=== PATIENT | male | born 1945 | race Caucasian/White ===

== ENCOUNTER 2019-09-29 08:51 | Outpatient (CLI) | payer MEDICARE, SELFPAY ==
[2019-09-29 09:20] LABS: Hemoglobin A1C 7.7 % (<5.7)
[2019-09-29 10:05] LABS: Alanine Aminotransferase 22 U/L (16-63); Albumin Level 3.5 g/dL (3.4-5.0); Alkaline Phosphatase 65 U/L (46-116); Anion Gap 10.6 mmol/L (7-16); Aspartate Amino Transferase 12 U/L (15-37); Bilirubin,Total 0.5 mg/dL (0.00-1.00); Blood Urea Nitrogen 23 mg/dL (7-18); Calcium 8.7 mg/dL (8.5-10.1); Carbon Dioxide 33 mmol/L (21-32); Chloride 102 mmol/L (98-108); Cholesterol 212 mg/dL (0-200); Estimated Glomerular Filt Rate 32; Glucose 193 mg/dL (70-99); HDL Direct 49 mg/dL (40-60); LDL Cholesterol Calculated 123 mg/dL (<130); Osmolality Calculated 300 mOsm/kg (285-295); Potassium 4.6 mmol/L (3.5-5.1); Prostate Specific Antigen 2.2 ng/mL (< OR = 4.0); Sodium 141 mmol/L (136-145); Total Protein 6.3 g/dL (6.4-8.2); Triglycerides 199 mg/dL (0-150)
== END 2019-09-29 08:52 | disposition home or self-care (01) ==
PROVIDERS: PCP Nurse Practitioner Family; Visit Provider Nurse Practitioner Family
DX: E11.9 Type 2 diabetes mellitus without complications (principal); R97.20 Elevated prostate specific antigen [PSA]
CPT/HCPCS: 36415; 80053; 80061; 83036; 84153

== ENCOUNTER 2019-10-15 20:38 | Emergency (ER) | payer MEDICARE, SELFPAY ==
--- NOTE | ~2019-10-15 | CT_ITS ---
EXAMINATION: CT cervical spine wo con DATE: 10/15/2019 21:37 INDICATION: Fall. TECHNIQUE: Computed tomography (CT) of the cervical spine was performed without intravenous contrast. Automated exposure control and iterative reconstruction technique were employed. The dose-length pro duct was 504.90 mGy-cm. COMPARISON: None FINDINGS: Bone alignment is normal. Vertebral body heights are normal. There is mildly decreased disc height at C3-C4 and C4-C5 and severely decreased disc height at C5-C6 and C6-C7. The following disc levels are specifically discussed: C2-C3: There is no uncovertebral joint osteoarthritis. There is mild right and moderate left facet eden int osteoarthritis. There is no neural foraminal stenosis. There is no central canal stenosis. C3-C4: There is mild right and severe left uncovertebral joint osteoarthritis. There is moderate righ t and severe left facet joint osteoarthritis. There is mild right and moderate left neural foraminal stenosis. There is mild central canal stenosis. C4-C5: There is severe right and mild left uncovertebral joint osteoarthritis. There is moderate righ t and severe left facet joint osteoarthritis. There is moderate right and mild left neural foraminal stenosis. There is mild central canal stenosis. C5-C6: There is severe bilateral uncovertebral joint osteoarthritis. There is mild bilateral facet eden int osteoarthritis. There is moderate bilateral neural foraminal stenosis. There is mild central swathi l stenosis. C6-C7: There is severe bilateral uncovertebral joint osteoarthritis. There is no facet joint osteoart hritis. There is mild bilateral neural foraminal stenosis. There is mild central canal stenosis. C7-T1: There is no uncovertebral joint osteoarthritis. There is severe bilateral facet joint osteoart hritis. There is mild right neural foraminal stenosis. There is no central canal stenosis. IMPRESSION: 1. No fracture. 2. Severe cervical spondylosis. Reviewed, dictated and finalized at location A.
--- NOTE | ~2019-10-15 | CT_ITS ---
EXAMINATION: CT brain wo con DATE: 10/15/2019 21:36 INDICATION: Fall. TECHNIQUE: Computed tomography (CT) of the head was performed without intravenous contrast. The mA wa s adjusted according to patient size. Iterative reconstruction technique was employed. The dose-lengt h product was 681.00 mGy-cm. COMPARISON: Head CT 07/28/2016 FINDINGS: There is no intracranial hemorrhage, acute infarction, or abnormal intracranial mass lesion . The ventricles are normal in size. There is mild mucosal thickening in the paranasal sinuses. The m astoid air cells are normal. There are likely changes of ocular lens replacement surgeries. IMPRESSION: 1. Normal brain. Reviewed, dictated and finalized at location A. IMPRESSION: 1. Normal brain.
--- NOTE | ~2019-10-15 | XR_ITS ---
EXAMINATION: XR hip BI 2V w AP pelvis DATE: 10/15/2019 21:38 INDICATION: Right hip pain. TECHNIQUE: An anteroposterior view of the pelvis and 2 views of each hip were obtained. COMPARISON: Right hip radiographs 10/18/2018 FINDINGS: There is a subcapital fracture of right femoral neck. The distal fracture fragment demonstr ates impaction and varus angulation. There is severe right hip osteoarthritis and mild left hip osteo arthritis. IMPRESSION: 1. Subcapital fracture of right femoral neck. 2. Severe right hip osteoarthritis and mild left hip osteoarthritis. Reviewed, dictated and finalized at location A.
[2019-10-15 20:38] VITALS: BP 123/85; PULSE 86; RESP 18; TEMP 36.4; O2SAT 98
[2019-10-15] MEDS: MORPHINE SULFATE 2 MG/ML INJ IV PUSH (22:50)
[2019-10-15] MEDS: ONDANSETRON INJ 4 MG/2 ML VIAL IV PUSH (22:52)
--- NOTE | 2019-10-15 22:58 | ED.FALL ---
HPI - Fall General Chief Complaint: Fall Stated Complaint: 74YO male w/ known h.o gait imbalance was walking up an incline when he lost his balance and fell. Pt is brought into my ED in trauma package with externally rotated right LE. Denies LOC. Related Data Home Medications Medication Instructions Recorded Confirmed furosemide 40 mg tablet 40 mg PO QAM 08/31/19 ranolazine 500 mg tablet,extended 500 mg PO Q12H 08/31/19 release,12 hr Allergies Allergy/AdvReac Type Severity Reaction Status Date / Time No Known Allergies Allergy Verified 10/15/19 22:24 Review of Systems Review of Systems: All systems reviewed & are unremarkable except as noted in HPI and below Constitutional: Constitutional: Reports no additional constitutional complaints Eyes: Eyes: Reports no additional eye complaints Cardiovascular: Cardiovascular: Reports no additional cardiovascular complaints Respiratory: Respiratory: Reports no additional respiratory complaints Gastrointestinal: Gastrointestinal: Reports no additional gastrointestinal complaints Musculoskeletal: Musculoskeletal: Reports as per HPI Integumentary/Breasts: Skin/Breast: Reports system reviewed and no additional complaints, except as docu Neurologic: Reports system reviewed and no additional complaints, except as documented Psychiatric: Psychiatric: Reports no additional psychiatric complaints [facility] Past Medical History Medical History Benign prostate hyperplasia COPD (chronic obstructive pulmonary disease) Depression PAUL (generalized anxiety disorder) HTN (hypertension) Meniere disease Primary generalized (osteo)arthritis Type 2 diabetes mellitus Family History Family History Mother Family history of coronary artery disease Social History Social History Smoking status: Never smoker Exam Const: General: healthy appearing, no acute distress and alert Orientation/consciousness: patient oriented x3 Other: IN Trauma package w/ c-collar in place HENMT: Head: normal to inspection Eyes: Pupils: Equal, round and reactive pupils present Neck: Neck: normal visual inspection Chest: Chest palpation & inspection: normal inspection of the chest Resp: Effort & Inspection: normal respiratory effort Auscultation: clear to auscultation bilaterally Cardio: Rate: regular rate Rhythm: regular rhythm GI: Auscultation: normal bowel sounds Skin: General skin exam: normal color Neuro: General: patient oriented x3 and CN's II-XI intact bilaterally Other: RLE Externally rotated, painful to move Extrem: Other: See above Psych: Mental Status: mental status grossly normal Course Course Emergency Course: Reviewed w/u with R Hip Fx. Will need to transfer to [place] Transfer Transfered to: [place] Transfer rationale: Ortho Accepting physician: Fox (ortho)Parminder(Hospitalist) MDM - Fall Medical Records Attestation: I reviewed the patient's medical records. Critical Care Time Critical Care Time Critical Care Time: No Discharge Plan Discharge Clinical Impression: Closed fracture of right hip requiring operative repair Patient Disposition: Acute Care Hospital Condition: Stable Prescriptions: No Action ranolazine [Ranexa] 500 mg tablet extended release 12 hr 500 mg PO Q12H RF: 0 furosemide 40 mg tablet 40 mg PO QAM RF: 0 bupropion HCl 150 mg tablet extended release 24 hr 150 mg PO QAM Qty: 90 RF: 2 nitroglycerin 0.4 mg tablet, sublingual 0.4 mg SUBLINGUAL Q5M PRN (Reason: chest pain) Qty: 90 RF: 0 budesonide-formoterol [Symbicort] 160-4.5 mcg/actuation HFA aerosol inhaler See Rx Instructions .ROUTE .COMPLEX Qty: 30.6 RF: 2 atorvastatin 20 mg tablet 20 mg PO DAILY Qty: 30 RF: 1 metformin 500 mg tablet 500 mg PO BID Qty: 180 RF:
--- NOTE | 2019-10-15 23:34 | PC.NURSE ---
ON 10-15-19 AT 2335 REPORT WAS CALLED TO [facility] TO THE 3RD FLOOR ROOM 302. KRISTI PATTON GAVE REPORT TO TRINIDAD BERRY AND PT. STABLE AT THIS TIME. IV IN PLACE AND ONLY COMPLAINT IS PAIN. ALL HOME MEDS GIVEN BACK TO AND REPORT GIVEN TO ELVI BERRY TO TAKE OVER CARE OF THIS ASSIGNMENT OF NOW.,
[2019-10-15 23:35] VITALS: BP 121/72; PULSE 72; RESP 20; TEMP 36.6; O2SAT 92
--- NOTE | 2019-10-16 00:27 | PC.NURSE ---
Report given to EMILY and pt. transfered to [facility]
== END 2019-10-16 00:28 | disposition short-term general hospital (02) ==
PROVIDERS: Emergency Provider Family Medicine; PCP Nurse Practitioner Family
DX: S72.011A Unspecified intracapsular fracture of right femur, initial encounter for closed fracture (principal); J44.9 Chronic obstructive pulmonary disease, unspecified; I10 Essential (primary) hypertension; E11.9 Type 2 diabetes mellitus without complications; W19.XXXA Unspecified fall, initial encounter
CPT/HCPCS: 70450; 72125; 73521; 96374; 96375; 99283; 99285; J2270; J2405

== ENCOUNTER 2019-10-16 02:45 | Inpatient (IN) | payer MEDICARE, OTHER, SELFPAY ==
[2019-10-16] VITALS (8 sets, daily range): BP systolic 122–151; BP diastolic 61–84; PULSE 85–105; RESP 16–22; TEMP 36.1–36.7; O2SAT 90–92; BMI 25.2
--- NOTE | ~2019-10-16 | XR_ITS ---
EXAMINATION: XR hip RT min 2V DATE: 10/17/2019 10:30 INDICATION: Right hip arthroplasty. Postop. TECHNIQUE: 2 views of right hip were obtained. COMPARISON: Right hip radiographs 10/15/2019 FINDINGS: There is a bipolar right hip hemiarthroplasty in near-anatomic alignment. No fracture. Ther e is gas in the soft tissues, consistent with recent surgery. IMPRESSION: 1. Bipolar right hip hemiarthroplasty in near-anatomic alignment. Reviewed, dictated and finalized at location A.
--- NOTE | ~2019-10-16 | CT_ITS ---
EXAMINATION: CT brain wo con INDICATION: Altered mental status COMPARISON: 10/15/2019 TECHNIQUE: Standard unenhanced head CT. The dose-length product (DLP) was 605.33 mGy-cm. The mA was a djusted according to patient size. Iterative reconstruction technique was employed. FINDINGS: There is no acute intraparenchymal hemorrhage. No evidence of mass lesion. No evidence of a cute infarction. There is mild periventricular and subcortical hypodensity probably related to small vessel ischemic disease. There is mild prominence of the sulci and ventricles related to cerebral atr ophy. Intracranial calcified cerebral atherosclerosis is noted. There are no extra-axial collections. There is no mass effect or midline shift. Changes in the globes are likely from ocular lens surgery. The visualized sinuses and mastoid air cells are well aerated. IMPRESSION: 1. No acute intracranial abnormality. 2. Age related findings. Reviewed, dictated and finalized at location A.
--- NOTE | ~2019-10-16 | XR_ITS ---
EXAMINATION: XR chest 1V portable INDICATION: Hypertension and diabetes TECHNIQUE: Portable AP chest at 0956 hours COMPARISON: 07/28/2016 FINDINGS: Bilateral linear opacities are noted. There is no pleural effusion or pneumothorax. The hea rt size is normal. There is a large hiatal hernia. The visualized osseous structures are unremarkable . IMPRESSION: 1. Large hiatal hernia. 2. Likely bilateral subsegmental atelectasis. Reviewed, dictated and finalized at location A.
--- NOTE | 2019-10-16 01:39 | ADMGEN ---
This patient, Davis Hunter , was admitted to [address] [facility] Surg Room 302-01. Patient/family oriented to hospital policies and general routines including ID bracelet, bed and alarms, visiting hours, pain management, procedures, bathroom and other care routines, personal items, smoking policy, room service/diet, and visiting hours. Valuables list has been completed. Information on how to activate the Rapid Response Team has been discussed. Patient/Family are encouraged to report perceived risks to care and to ask questions if they do not understand what they are told or what they should do.
[2019-10-16] MEDS: SODIUM CHLORIDE 0.9% IV 1,000 ML 100 ML IV CONT (02:54)
[2019-10-16] MEDS: ONDANSETRON INJ 4 MG/2 ML VIAL IV PUSH (02:55)
--- NOTE | 2019-10-16 03:08 | PM.IMHP ---
H&P: HPI History of Present Illness Chief complaint: Right Hip Fracture Narrative: This is a pleasant 74 year old Diabetic male who presented to our hospital as a direct admission after being found to have a right hip fracture yesterday. The patient apparently lost his balance when he was walking up an incline yesterday and fell on his right side. He denied any head trauma or loss of conciousness. He immediately suffered ambulatory dysfunction and could not get up. On arrival to [place] [facility] the patient was evaluated and found to have a subcapital fracture of right femoral neck. ER provider consulted Ortho, Dr. Braxton who has asked that we admit the patient and he will see him in the morning. On my encounter with the patient tonight he is only complaining of right hip pain. He denies any fever, chills, chest pain, shortness of breath, sore throat, headache, abdominal pain, dysuria, hematuria, nausea, vomiting, diarrhea, or rectal bleeding. No other complaints. Review of Systems Review of Systems: All systems reviewed & are unremarkable except as noted in HPI and below PMFSH Past Medical History Medical History (Updated 10/16/19 @ 03:18 by Davis Zurita MD) Benign prostate hyperplasia COPD (chronic obstructive pulmonary disease) Depression PAUL (generalized anxiety disorder) HTN (hypertension) Meniere disease Primary generalized (osteo)arthritis Type 2 diabetes mellitus Surgical History Surgical History (Updated 10/16/19 @ 03:13 by Davis Zurita MD) History of coronary artery stent placement Family History Family History Mother Family history of coronary artery disease Social History Social History Smoking status: Current some day smoker Tobacco type: cigars Additional smoking assessment comments: Pt reports smoking a cigar approximately once a week. Alcohol intake: current Drinks per week: 1 Substance use: never Gender identity (if verbalized by the patient): Male Spiritual care concerns: No Meds Home Medications and Allergies Home Medications Medication Instructions Recorded Confirmed Type bupropion HCl 150 mg 24 hr tablet, 150 mg PO QAM #90 tablet 05/09/19 10/16/19 Rx extended release nitroglycerin 0.4 mg sublingual 0.4 mg SUBLINGUAL Q5M PRN #90 06/21/19 10/16/19 Rx tablet tablet furosemide 40 mg tablet 40 mg PO QAM 08/31/19 10/16/19 History ranolazine 500 mg tablet,extended 500 mg PO Q12H 08/31/19 10/16/19 History release,12 hr atorvastatin 20 mg tablet 20 mg PO DAILY #30 tablet 10/03/19 10/16/19 Rx metformin 500 mg tablet 500 mg PO BID #180 tablet 10/04/19 10/16/19 Rx metoprolol tartrate 50 mg tablet 50 mg PO DAILY #90 tablet 10/06/19 10/16/19 Rx budesonide-formoterol [Symbicort] 2 puff INHALATION Q12H 10/16/19 10/16/19 History citalopram 40 mg PO DAILY 10/16/19 10/16/19 History meclizine 25 mg PO BID PRN 10/16/19 10/16/19 History Allergies Allergy/AdvReac Type Severity Reaction Status Date / Time No Known Allergies Allergy Verified 10/15/19 22:24 Vital Signs Vital Signs - 24 hr 10/16/19 01:20 Temperature 36.3 C L Pulse Rate 95 Respiratory Rate 22 H Blood Pressure 138/84 Pulse Oximetry 90 Exam Const: General: cooperative, alert, awake and in distress (right hip pain++ ) moderate Nutritional Appearance: well nourished Orientation/consciousness: patient oriented x3 HENMT: Head: normal to inspection General nose exam: Normal external nose present Face and sinus: normal facial exam Mouth: Yes Normal oral and palatal mucosa present and Yes oropharynx normal Eyes: Pupils: Equal, round and reactive pupils present EOM: EOMs intact bilaterally Neck: Neck: supple and no JVD Thyroid: thyroid normal Lymphatic: lymphadenopathy not noted Resp: Effort & Inspection: normal respiratory effort Auscultation: clear to auscultation bilaterally Cardio:
[2019-10-16 03:41] LABS: Basophils Percent Auto 0.3 % (0.2-1.2); Eosinophils Percent Auto 0.1 % (0-4.4); Hematocrit 41.5 % (42.0-52.0); Immature Granulocyte Absolute 0.08 K/mm3 (0.00-0.031); Immature Granulocyte Percent A 0.7 % (0-0.5); Lymphocytes Absolute Auto 0.59 K/mm3 (0.9-3.2); Mean Corpuscular HGB Conc 33.7 g/dl (32-36); Mean Platelet Volume 8.7 fl (7.4-10.4); Neutrophils Absolute Auto 10.2 K/mm3 (1.3-6.7); Neutrophils Percent Auto 85.9 % (45.5-73.1); Platelet Count Result 145 k/mm3 (150-375); Red Blood Count 4.51 M/mm3 (4.6-6.20); Red Cell Distribution Width 13.6 % (11.5-14.5); White Blood Count 11.9 K/mm3 (4.5-10.0)
[2019-10-16 03:54] LABS: Blood Urea Nitrogen 33 mg/dL (9-20); Calcium 8.5 mg/dL (8.4-10.2); Carbon Dioxide 25 mmol/L (22-30); Chloride 104 mmol/L (98-107); Estimated CRCL calculation 35 ml/min; Estimated Glomerular Filt Rate 42; Glucose 214 mg/dL (75-110); Potassium 4.9 mmol/L (3.4-5.0); Sodium 135 mmol/L (137-145)
[2019-10-16 05:43] LABS: Glucose Point of Care 194 (65-105)
--- NOTE | 2019-10-16 09:35 | ECG_ITS ---
Measurements Intervals [place] Rate: 98 P: 54 HI: 164 QRS: 6 QRSD: 91 T: 46 QT: 358 QTc: 459 Interpretive Statements SINUS RHYTHM NORMAL ECG Electronically Signed On 10-16-2019 12:59:14 CDT by Brent Jaffe D.O.
--- NOTE | 2019-10-16 09:58 | PM.CNOR ---
Assessment and Plan Assessment and plan (1) Subcapital fracture of right femur: Qualifiers: Encounter type: initial encounter Fracture type: closed Qualified Code(s): S72.011A - Unspecified intracapsular fracture of right femur, initial encounter for closed fracture Code(s): S72.011A - Unspecified intracapsular fracture of right femur, initial encounter for closed fracture Status: Acute Assessment and Plan: 74-year-old male with an acute right subcapital femoral neck fracture. He does have an arthritic hip. Ideally a total hip replacement would be the procedure of choice however with his diabetes having less than stellar control (elevated hemoglobin A1c), and his poor kidney function, my concerns for wound healing issues in possibility of infection increase and so will instead do a bipolar replacement.Risks and potential complications were discussed in detail and questions answered. Thank you for the consultation. Pending medical clearance we will proceed tomorrow. History of Present Illness HPI Consult date: 10/16/19 Consult reason: fracture (Right subcapital femoral neck fracture) Chief complaint: Right Hip Fracture Narrative: 74-year-old male who fell yesterday. He was initially evaluated at the [place] [facility] hospital and then transferred to [facility] for further evaluation and management of a right hip fracture. No other injuries with this occurrence. Patient articulates pain in his right hip and no where else. Review of Systems Constitutional: Constitutional: Reports no additional constitutional complaints, Denies excessive sweating and Denies fatigue Eyes: Eyes: Reports no additional eye complaints ENT: Reports system reviewed and no additional complaints, except as documented Cardiovascular: Cardiovascular: Denies chest pain at rest and Denies dyspnea Respiratory: Respiratory: Reports no additional respiratory complaints and Denies dyspnea Gastrointestinal: Gastrointestinal: Reports no additional gastrointestinal complaints Musculoskeletal: Musculoskeletal: Reports as per HPI Integumentary/Breasts: Skin/Breast: Reports system reviewed and no additional complaints, except as docu Neurologic: Reports as per HPI Endocrine: Endocrine: Denies excessive sweating and Denies fatigue Hematologic/Lymphatic: Hematologic/Lymphatic: Denies easy bleeding and Denies easy bruising PMFSH Past Medical History Medical History Benign prostate hyperplasia COPD (chronic obstructive pulmonary disease) Depression PAUL (generalized anxiety disorder) HTN (hypertension) Meniere disease Primary generalized (osteo)arthritis Type 2 diabetes mellitus Surgical History Surgical History History of coronary artery stent placement Family History Family History Mother Family history of coronary artery disease Social History Social History Smoking status: Current some day smoker Tobacco type: cigars Additional smoking assessment comments: Pt reports smoking a cigar approximately once a week. Alcohol intake: current Drinks per week: 1 Substance use: never Gender identity (if verbalized by the patient): Male Spiritual care concerns: No Meds Home Medications and Allergies Home Medications Medication Instructions Recorded Confirmed Type bupropion HCl 150 mg 24 hr tablet, 150 mg PO QAM #90 tablet 05/09/19 10/16/19 Rx extended release nitroglycerin 0.4 mg sublingual 0.4 mg SUBLINGUAL Q5M PRN #90 06/21/19 10/16/19 Rx tablet tablet furosemide 40 mg tablet 40 mg PO QAM 08/31/19 10/16/19 History ranolazine 500 mg tablet,extended 500 mg PO Q12H 08/31/19 10/16/19 History release,12 hr atorvastatin 20 mg tablet 20 mg PO DAILY #30 tablet 10/03/19 10/16/19 Rx metformin 5
[2019-10-16] MEDS: METOPROLOL TARTRATE 50 MG TAB PO (10:27)
[2019-10-16] MEDS: FUROSEMIDE 40 MG TABLET PO (10:27)
[2019-10-16] MEDS: CITALOPRAM HYDROBROMIDE 20 MG TABLET 40 MG PO (10:28)
[2019-10-16] MEDS: RANOLAZINE 500 MG TAB.ER.12H PO ×2 (10:28→20:27)
[2019-10-16] MEDS: buPROPion HCL XL (24 HR) 150 MG TABCR PO (10:28)
[2019-10-16] MEDS: ATORVASTATIN 20 MG TABLET PO (10:28)
--- NOTE | 2019-10-16 10:55 | PM.IMPN ---
Progress Note: A&P Assessment and Plan (1) Subcapital fracture of right femur: Qualifiers: Encounter type: initial encounter Fracture type: closed Qualified Code(s): S72.011A - Unspecified intracapsular fracture of right femur, initial encounter for closed fracture Code(s): S72.011A - Unspecified intracapsular fracture of right femur, initial encounter for closed fracture Status: Acute Assessment and Plan: Patient presents with right pain after a fall; imaging demonstrates right subcapital femoral neck fracture. Appreciate orthopedic surgery input - discussed case with Dr Braxton and noted his plan for bipolar arthroplasty tomorrow. Will obtain chest XR and EKG for preoperative purposes. My estimation is this patient is moderate risk for cardiac event in the perioperative period based on RCRI risk index given his age and comorbidities including CAD, reduced renal function (unsure of chronicity), DM, and COPD. Pain control and DVT prophylaxis per Dr Braxton's recommendations. (2) COPD (chronic obstructive pulmonary disease): Qualifiers: COPD type: unspecified COPD Qualified Code(s): J44.9 - Chronic obstructive pulmonary disease, unspecified Code(s): J44.9 - Chronic obstructive pulmonary disease, unspecified Status: Chronic Assessment and Plan: No evidence of respiratory distress today. Continue his home symbicort; will add xopenex PRN for SOB. (3) HTN (hypertension): Qualifiers: Hypertension type: unspecified Qualified Code(s): I10 - Essential (primary) hypertension Code(s): I10 - Essential (primary) hypertension Status: Chronic Assessment and Plan: Stable, continue his home medications with metoprolol. Monitor BP and adjust treatment as needed. (4) Type 2 diabetes mellitus: Qualifiers: Diabetes mellitus complication status: without complication Diabetes mellitus salvage determiner insulin use: with salvage determiner use Qualified Code(s): E11.9 - Type 2 diabetes mellitus without complications; Z79.4 - supervisor intermediates (current) use of insulin Code(s): E11.9 - Type 2 diabetes mellitus without complications Status: Chronic Assessment and Plan: Hgb A1c is 7.7. His home metformin is held. Continue to monitor with accu-cheks and cover with sliding scale insulin. Can adjust insulin regimen as needed. (5) Coronary artery disease: Code(s): I25.10 - Atherosclerotic heart disease of [place] coronary artery without angina pectoris Status: Chronic Assessment and Plan: Patient describes having 1 coronary stent placed, unfortunately he is not able to remember when or the name of his manager intern. He describes he would not be able to walk around the block at home due to deconditioning but denies any chest pain at present. Continue with his home Ranexa and statin therapy. (6) Elevated serum creatinine: Code(s): R79.89 - Other specified abnormal findings of blood chemistry Status: Acute Assessment and Plan: Unsure of chronicity with no previous labs for comparison. Cr 2 yesterday improved to 1.6 this morning. Will continue light IV hydration. Avoid nephrotoxic agents and check BMP in AM. Subjective Date/time seen: 10/16/19 1000 Interval history: Mr. Hunter is a 74yo M admitted for right hip fracture after a fall outside at home. He reports some mild shortness of breath lying flat. Denies chest pain. Complains of significant right hip pain. Denies nausea or vomiting, just hungry. Review of Systems Review of Systems: Narrative: Twelve systems were reviewed with pertinent positives and negatives as per HPI. Exam Narrative: Exam Narrative: General: Male resting supine in bed in no acute respiratory distress, uncomfortable due to pain.
[2019-10-16] MEDS: SODIUM CHLORIDE 0.9% IV 1,000 ML 70 ML IV CONT (13:02)
[2019-10-16 13:43] LABS: Glucose Point of Care 171 (65-105)
[2019-10-16 18:12] LABS: Glucose Point of Care 172 (65-105)
[2019-10-16] MEDS: INSULIN ASPART (*BKC) 100 UNITS/ML SUB-Q (20:27)
[2019-10-16 21:18] LABS: Glucose Point of Care 224 (65-105)
[2019-10-17] VITALS (12 sets, daily range): BP systolic 105–154; BP diastolic 62–87; PULSE 70–99; RESP 11–18; TEMP 36.6–37.4; O2SAT 90–98
[2019-10-17] MEDS: SODIUM CHLORIDE 0.9% IV 1,000 ML 70 ML IV CONT (03:07)
[2019-10-17 06:22] LABS: Basophils Percent Auto 0.3 % (0.2-1.2); Eosinophils Absolute Auto 0.2 K/mm3 (0-0.3); Eosinophils Percent Auto 1.9 % (0-4.4); Hematocrit 40.9 % (42.0-52.0); Hemoglobin 13.1 g/dL (14.0-18.0); Immature Granulocyte Absolute 0.07 K/mm3 (0.00-0.031); Immature Granulocyte Percent A 0.8 % (0-0.5); Lymphocytes Absolute Auto 0.53 K/mm3 (0.9-3.2); Lymphocytes Percent Auto 5.8 % (18.3-44.2); Mean Corpuscular Hemoglobin 30.4 pg (26-34); Mean Corpuscular Volume 94.9 fl (80-100); Mean Platelet Volume 9.1 fl (7.4-10.4); Monocytes Absolute Auto 0.7 K/mm3 (0.1-0.6); Monocytes Percent Auto 7.9 % (2.6-8.5); Neutrophils Absolute Auto 7.6 K/mm3 (1.3-6.7); Neutrophils Percent Auto 83.3 % (45.5-73.1); Platelet Count Result 128 k/mm3 (150-375); Red Blood Count 4.31 M/mm3 (4.6-6.20); Red Cell Distribution Width 13.8 % (11.5-14.5); White Blood Count 9.1 K/mm3 (4.5-10.0)
--- NOTE | 2019-10-17 06:23 | PC.NURSE ---
To OR per bed, IV SL, 3L NC. Verbal report given to Gala RN due to unexpected early surgical time. Surgical consent and blood consent signed and in the chart.
[2019-10-17] MEDS: LACTATED RINGERS 1,000 ML 30 ML IV CONT ×2 (06:25→10:26)
[2019-10-17 06:31] LABS: NT Pro B Type Natriuretic Pept 1220 PG/ML (5-100)
--- NOTE | 2019-10-17 06:33 | WPDANESEPPF ---
Anes - Initial Pre Proc Eval Procedure: Operation Date: 10/17/19 07:30 Proposed Procedures p Right Bipolar - Gulshan Braxton MD Date/Time: 10/17/19 06:33 Surgeon: BRIGIDO [place] Pre Op Diagnosis: Right Hip Fracture Patient Data Age: 74 Gender: M Height: 1.75 m Weight: 77.5 kg Last Vital Signs Temp 36.6 C 10/16/19 22:00 Pulse 96 10/16/19 22:00 Resp 20 10/16/19 22:00 BP 122/72 10/16/19 22:00 Pulse Ox 90 10/17/19 03:30 Allergies Allergy/AdvReac Type Severity Reaction Status Date / Time No Known Allergies Allergy Verified 10/15/19 22:24 Home Medications Medication Instructions Recorded Confirmed Type bupropion HCl 150 mg 24 hr tablet, 150 mg PO QAM #90 tablet 05/09/19 10/16/19 Rx extended release nitroglycerin 0.4 mg sublingual 0.4 mg SUBLINGUAL Q5M PRN #90 06/21/19 10/16/19 Rx tablet tablet furosemide 40 mg tablet 40 mg PO QAM 08/31/19 10/16/19 History ranolazine 500 mg tablet,extended 500 mg PO Q12H 08/31/19 10/16/19 History release,12 hr atorvastatin 20 mg tablet 20 mg PO DAILY #30 tablet 10/03/19 10/16/19 Rx metformin 500 mg tablet 500 mg PO BID #180 tablet 10/04/19 10/16/19 Rx metoprolol tartrate 50 mg tablet 50 mg PO DAILY #90 tablet 10/06/19 10/16/19 Rx budesonide-formoterol [Symbicort] 2 puff INHALATION Q12H 10/16/19 10/16/19 History citalopram 40 mg PO DAILY 10/16/19 10/16/19 History meclizine 25 mg PO BID PRN 10/16/19 10/16/19 History Laboratory Tests 10/16/19 10/16/19 10/16/19 11:46 18:01 20:25 WBC RBC Hgb Hct MCV MCH MCHC RDW Plt Count MPV Immature Gran % (Auto) Neut % (Auto) Lymph % (Auto) [place] % (Auto) Eos % (Auto) Baso % (Auto) Lymph # (Auto) [place] # (Auto) Eos # (Auto) Baso # (Auto) Abs Immat Gran (auto) Absolute Neuts (auto) Absolute Nucleated RBC Nucleated RBC % Sodium Potassium Chloride Carbon Dioxide BUN Creatinine Estim Creat Clear Calc Estimated GFR Glucose POC Capillary Glucose 171 mg/dl H mg/dl 172 mg/dl H mg/dl 224 mg/dl H mg/dl (65-105) (65-105) (65-105) Calcium Phosphorus Magnesium Total Bilirubin AST ALT Alkaline Phosphatase NT-Pro-B Natriuret Pep Total Protein Albumin 10/17/19 10/17/19 05:20 05:20 WBC 9.1 K/mm3 K/mm3 (4.5-10.0) RBC 4.31 M/mm3 L M/mm3 (4.6-6.20) Hgb 13.1 g/dL L g/dL (14.0-18.0) Hct 40.9 % L % (42.0-52.0) MCV 94.9 fl fl (80-100) MCH 30.4 pg pg (26-34) MCHC 32.0 g/dl g/dl (32-36) RDW 13.8 % % (11.5-14.5) Plt Count 128 k/mm3 L k/mm3 (150-375) MPV 9.1 fl fl (7.4-10.4) Immature Gran % (Auto) 0.8 % H % (0-0.5) Neut % (Auto) 83.3 % H % (45.5-73.1) Lymph % (Auto) 5.8 % L % (18.3-44.2) [place] % (Auto) 7.9 % % (2.6-8.5) Eos % (Auto) 1.9 % % (0-4.4) Baso % (Auto) 0.3 % % (0.2-1.2) Lymph # (Auto) 0.53 K/mm3 L K/mm3 (0.9-3.2) [place] # (Auto) 0.7 K/mm3 H K/mm3 (0.1-0.6) Eos # (Auto) 0.2 K/mm3 K/mm3 (0-0.3) Baso # (Auto) 0.0 K/mm3 K/mm3 (0.0-0.1) Abs Immat Gran (auto) 0.07 K/mm3 H K/mm3 (0.00-0.031) Absolute Neuts (auto) 7.6 K/mm3 H K/mm3 (1.3-6.7) Absolute Nucleated RBC 0.0 K/mm3 K/mm3 (0.0-0.012) Nucleated RBC % 0.0 % % (0.0-0.2) Sodium Pending Potassium Pending Chloride Pending Carbon Dioxide Pending BUN Pending Creatinine Pend
[2019-10-17 06:34] LABS: Alanine Aminotransferase 18 U/L (4-50); Albumin Level 3.2 g/dL (3.5-5.1); Alkaline Phosphatase 53 U/L (38-126); Aspartate Amino Transferase 19 U/L (17-59); Bilirubin,Total 0.6 mg/dL (0.2-1.3); Blood Urea Nitrogen 25 mg/dL (9-20); Calcium 7.7 mg/dL (8.4-10.2); Carbon Dioxide 27 mmol/L (22-30); Chloride 104 mmol/L (98-107); Estimated CRCL calculation 35 ml/min; Estimated Glomerular Filt Rate 42; Glucose 172 mg/dL (75-110); Magnesium 1.8 mg/dL (1.6-2.3); Phosphorus 3.2 mg/dL (2.5-4.5); Potassium 4.1 mmol/L (3.4-5.0); Sodium 136 mmol/L (137-145)
[2019-10-17] MEDS: ceFAZolin 2 GM/D5W 50 ML 2 GM/50 ML BAG IVPB ×3 (07:42→23:39)
[2019-10-17] MEDS: TRANEXAMIC ACID 1,000 MG/10 ML AMPUL 1000 MG IV PUSH (08:37)
[2019-10-17] MEDS: TRANEXAMIC ACID 1,000 MG/10 ML AMPUL 1000 MG TOPICAL (08:39)
[2019-10-17] MEDS: BUPIVACAINE HCL 0.5% PF 30 ML VIAL 60 ML INFILTRATE (08:41)
[2019-10-17] MEDS: ceFAZolin SODIUM 1 GM VIAL IV PUSH (09:22)
--- NOTE | 2019-10-17 10:12 | P.OP_ITS ---
Procedure Note - Detailed Date of procedure: 10/17/19 Pre-op diagnosis: Right Hip Fracture right subcapital femoral neck fracture Post-op diagnosis: same Procedure performed: Press-Fit bipolar right hip replacement Description of procedure: The patient was identified and proper site identified, then taken back to the operating room and transferred to the OR table. After general anesthetic induction and intubation, the patient was positioned in the left lateral decubitus position in the usual manner for a right hip procedure, and secured with padded hip positioner making sure the torso and extremities were properly padded. The right lower extremity was prepped and draped in the usual sterile fashion. A curvilinear incision was made over the greater trochanter and sharp dissection carried down through the subcutaneous tissue to the gluteus fascia and IT band which were divided in line with the incision. The anterior 1/2 of the abductors were sharply dissected off the greater trochanter developing the interval between the abductors and the capsule. The capsule was divided in an inverted-T fashion exposing the fracture site. A neck cut was made about one fingerbreadth above the level of the lesser trochanter. Head fragment was removed and the acetabulum cleared of debris. The acetabulum was sized to 50 mm. The proximal femur was prepared for the size Press-Fit 11. Trial reduction was undertaken and the hip was noted to be stable through range of motion. Through trialing it was noted that a 28- six head with 50 cup configuration gave denominational of leg lengths with excellent stability. The neck of the femoral component was cleaned and dried and the real components in those sizes were attached to the femoral stem. After final thorough lavage of the joint, the hip was again reduced. The capsule and godwin-incisional tissues were infiltrated with 60 mL of 0.5% plain lidocaine. 1 g of tranexamic acid was placed deep in the wound. The capsule was repaired with #2 Ethibond suture. The abductors were repaired to the greater trochanter with #5 Ethibond suture passed through a bony bridge. The deep fascia was reapproximated with 0 looped PDS suture. Deeper layers of the subcu reapproximated with 2. Vicryl. 2-0 strata fix and tissue adhesive were used for the skin, and a sterile dressing was applied. Procedure was well tolerated and there were no known intraoperative complications. Surgeon: Gulshan Braxton MD
--- NOTE | 2019-10-17 10:39 | SUR.PHASEI ---
1040- ice pack to right hip. Hip XR done. pt repositioned. oral airway remains in. Pedal pulses heard with doppler. Glucose 187.
[2019-10-17 10:45] LABS: Glucose Point of Care 187 (65-105)
--- NOTE | 2019-10-17 10:45 | SUR.PHASEI ---
1045- oral airway out. O2 sats 97%. Nods and answers appropriately.
[2019-10-17] MEDS: SODIUM CHLORIDE 0.9% IV 1,000 ML 100 ML IV CONT ×2 (12:15→21:55)
--- NOTE | 2019-10-17 14:28 | P.PNIM_ITS ---
Progress Note: A&P Assessment and Plan (1) Subcapital fracture of right femur: Qualifiers: Encounter type: initial encounter Fracture type: closed Qualified Code(s): S72.011A - Unspecified intracapsular fracture of right femur, initial encounter for closed fracture Code(s): S72.011A - Unspecified intracapsular fracture of right femur, initial encounter for closed fracture Status: Acute Assessment and Plan: * Patient presents with right pain after a fall; imaging demonstrated right subcapital femoral neck fracture now POD#0 right bipolar hip replacement this morning by Dr Braxton. * Appreciate Dr Braxton's input. Pain control and DVT prophylaxis per his recommendations. (2) Altered mental status: Qualifiers: Altered mental status type: unspecified Qualified Code(s): R41.82 - Altered mental status, unspecified Code(s): R41.82 - Altered mental status, unspecified Status: Acute Assessment and Plan: * Confused postoperatively. Was slow to answer questions yesterday prior to surgery. May be related to pain medications and anesthesia however based on his physical exam this afternoon would like to obtain CT brain. Vital signs are stable. Will monitor, RN will continue neuro checks. Edit: CT brain normal. (3) COPD (chronic obstructive pulmonary disease): Qualifiers: COPD type: unspecified COPD Qualified Code(s): J44.9 - Chronic obstructive pulmonary disease, unspecified Code(s): J44.9 - Chronic obstructive pulmonary disease, unspecified Status: Chronic Assessment and Plan: * No evidence of respiratory distress postoperatively but he was placed on supplemental O2 last night prior to surgery. * Preop CXR showed mild bibasilar atelectasis. Incentive spirometer ordered when appropriate. * Continue his home symbicort; will add xopenex PRN for SOB. (4) HTN (hypertension): Qualifiers: Hypertension type: unspecified Qualified Code(s): I10 - Essential (primary) hypertension Code(s): I10 - Essential (primary) hypertension Status: Chronic Assessment and Plan: * Stable, continue his home medications with metoprolol. Monitor BP and adjust treatment as needed. (5) Type 2 diabetes mellitus: Qualifiers: Diabetes mellitus complication status: without complication Diabetes mellitus half-way insulin use: with rn long term care use Qualified Code(s): E11.9 - Type 2 diabetes mellitus without complications; Z79.4 - long term care social worker (current) use of insulin Code(s): E11.9 - Type 2 diabetes mellitus without complications Status: Chronic Assessment and Plan: * Hgb A1c is 7.7. His home metformin is held. Continue to monitor with accu- cheks and cover with sliding scale insulin, adjust insulin regimen as needed. (6) Coronary artery disease: Qualifiers: Associated angina: without angina Coronary Disease-Associated Artery/Lesion type: [place] artery [place] vs. 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 * Continue with his home Ranexa and statin therapy. Denies chest pain
--- NOTE | 2019-10-17 14:28 | PM.IMPN ---
Progress Note: A&P Assessment and Plan (1) Subcapital fracture of right femur: Qualifiers: Encounter type: initial encounter Fracture type: closed Qualified Code(s): S72.011A - Unspecified intracapsular fracture of right femur, initial encounter for closed fracture Code(s): S72.011A - Unspecified intracapsular fracture of right femur, initial encounter for closed fracture Status: Acute Assessment and Plan: Patient presents with right pain after a fall; imaging demonstrated right subcapital femoral neck fracture now POD#0 right bipolar hip replacement this morning by Dr Braxton. Appreciate Dr Braxton's input. Pain control and DVT prophylaxis per his recommendations. (2) Altered mental status: Qualifiers: Altered mental status type: unspecified Qualified Code(s): R41.82 - Altered mental status, unspecified Code(s): R41.82 - Altered mental status, unspecified Status: Acute Assessment and Plan: Confused postoperatively. Was slow to answer questions yesterday prior to surgery. May be related to pain medications and anesthesia however based on his physical exam this afternoon would like to obtain CT brain. Vital signs are stable. Will monitor, RN will continue neuro checks. Edit: CT brain normal. (3) COPD (chronic obstructive pulmonary disease): Qualifiers: COPD type: unspecified COPD Qualified Code(s): J44.9 - Chronic obstructive pulmonary disease, unspecified Code(s): J44.9 - Chronic obstructive pulmonary disease, unspecified Status: Chronic Assessment and Plan: No evidence of respiratory distress postoperatively but he was placed on supplemental O2 last night prior to surgery. Preop CXR showed mild bibasilar atelectasis. Incentive spirometer ordered when appropriate. Continue his home symbicort; will add xopenex PRN for SOB. (4) HTN (hypertension): Qualifiers: Hypertension type: unspecified Qualified Code(s): I10 - Essential (primary) hypertension Code(s): I10 - Essential (primary) hypertension Status: Chronic Assessment and Plan: Stable, continue his home medications with metoprolol. Monitor BP and adjust treatment as needed. (5) Type 2 diabetes mellitus: Qualifiers: Diabetes mellitus complication status: without complication Diabetes mellitus termite treater insulin use: with termite treater use Qualified Code(s): E11.9 - Type 2 diabetes mellitus without complications; Z79.4 - MCFP (current) use of insulin Code(s): E11.9 - Type 2 diabetes mellitus without complications Status: Chronic Assessment and Plan: Hgb A1c is 7.7. His home metformin is held. Continue to monitor with accu-cheks and cover with sliding scale insulin, adjust insulin regimen as needed. (6) Coronary artery disease: Qualifiers: Associated angina: without angina Coronary Disease-Associated Artery/Lesion type: [place] artery [place] vs. 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 Continue with his home Ranexa and statin therapy. Denies chest pain at present. (7) Elevated serum creatinine: Code(s): R79.89 - Other specified abnormal findings of blood chemistry Status: Acute Assessment and Plan: Unsure of chronicity with no previous labs for comparison. Cr 2 on arrival improved to 1.6. Will continue light IV hydration. Avoid nephrotoxic agents
[2019-10-17] MEDS: ACETAMINOPHEN 500 MG TABLET 1000 MG PO ×2 (16:40→20:34)
[2019-10-17] MEDS: DOCUSATE SODIUM 100 MG CAPSULE PO (16:41)
[2019-10-17 18:07] LABS: Glucose Point of Care 334 (65-105)
[2019-10-17] MEDS: buPROPion HCL XL (24 HR) 150 MG TABCR PO (18:40)
[2019-10-17] MEDS: INSULIN ASPART (*BKC) 100 UNITS/ML SUB-Q (18:41)
[2019-10-17] MEDS: METOPROLOL TARTRATE 50 MG TAB PO (18:42)
[2019-10-17] MEDS: CITALOPRAM HYDROBROMIDE 20 MG TABLET 40 MG PO (18:42)
[2019-10-17] MEDS: FAMOTIDINE 20 MG TABLET PO (20:34)
[2019-10-17] MEDS: RANOLAZINE 500 MG TAB.ER.12H PO (20:34)
[2019-10-17 20:43] LABS: Glucose Point of Care 211 (65-105)
[2019-10-18] MEDS: ACETAMINOPHEN 500 MG TABLET 1000 MG PO ×4 (02:56→20:46)
[2019-10-18 05:54] LABS: Basophils Percent Auto 0.3 % (0.2-1.2); Eosinophils Absolute Auto 0.1 K/mm3 (0-0.3); Eosinophils Percent Auto 0.9 % (0-4.4); Hemoglobin 11.1 g/dL (14.0-18.0); Immature Granulocyte Absolute 0.06 K/mm3 (0.00-0.031); Immature Granulocyte Percent A 0.8 % (0-0.5); Lymphocytes Absolute Auto 0.58 K/mm3 (0.9-3.2); Lymphocytes Percent Auto 7.8 % (18.3-44.2); Mean Corpuscular HGB Conc 33.6 g/dl (32-36); Mean Corpuscular Hemoglobin 31.4 pg (26-34); Mean Corpuscular Volume 93.5 fl (80-100); Mean Platelet Volume 9.3 fl (7.4-10.4); Monocytes Absolute Auto 0.6 K/mm3 (0.1-0.6); Monocytes Percent Auto 7.6 % (2.6-8.5); Neutrophils Absolute Auto 6.2 K/mm3 (1.3-6.7); Neutrophils Percent Auto 82.6 % (45.5-73.1); Platelet Count Result 111 k/mm3 (150-375); Red Blood Count 3.53 M/mm3 (4.6-6.20); Red Cell Distribution Width 13.9 % (11.5-14.5); White Blood Count 7.5 K/mm3 (4.5-10.0)
[2019-10-18 06:00] VITALS: BP 119/75; PULSE 85; RESP 18; TEMP 37.2; O2SAT 95
[2019-10-18 06:14] LABS: Blood Urea Nitrogen 21 mg/dL (9-20); Calcium 7.2 mg/dL (8.4-10.2); Carbon Dioxide 25 mmol/L (22-30); Chloride 101 mmol/L (98-107); Estimated CRCL calculation 35 ml/min; Estimated Glomerular Filt Rate 42; Glucose 148 mg/dL (75-110); Potassium 3.7 mmol/L (3.4-5.0); Sodium 133 mmol/L (137-145)
[2019-10-18] MEDS: ceFAZolin 2 GM/D5W 50 ML 2 GM/50 ML BAG IVPB (07:40)
[2019-10-18 08:55] LABS: Glucose Point of Care 150 (65-105)
[2019-10-18 09:02] VITALS: O2SAT 90
[2019-10-18 09:14] VITALS: PULSE 85
[2019-10-18] MEDS: ATORVASTATIN 20 MG TABLET PO (09:14)
[2019-10-18] MEDS: FUROSEMIDE 40 MG TABLET PO (09:14)
[2019-10-18] MEDS: CITALOPRAM HYDROBROMIDE 20 MG TABLET 40 MG PO (09:14)
[2019-10-18] MEDS: METOPROLOL TARTRATE 50 MG TAB PO (09:14)
[2019-10-18] MEDS: RANOLAZINE 500 MG TAB.ER.12H PO ×2 (09:14→20:46)
[2019-10-18] MEDS: FAMOTIDINE 20 MG TABLET PO ×2 (09:14→20:46)
[2019-10-18] MEDS: buPROPion HCL XL (24 HR) 150 MG TABCR PO (09:14)
[2019-10-18] MEDS: DOCUSATE SODIUM 100 MG CAPSULE PO ×2 (09:15→17:05)
[2019-10-18] MEDS: ENOXAPARIN 30 MG/0.3 ML SYRINGE SUB-Q (09:15)
[2019-10-18 10:51] VITALS: O2SAT 94
--- NOTE | 2019-10-18 11:37 | PM.PNORT ---
Progress Note: A&P Assessment and Plan (1) Subcapital fracture of right femur: Qualifiers: Encounter type: initial encounter Fracture type: closed Qualified Code(s): S72.011A - Unspecified intracapsular fracture of right femur, initial encounter for closed fracture Code(s): S72.011A - Unspecified intracapsular fracture of right femur, initial encounter for closed fracture Status: Acute Assessment and Plan: surgery again discussed with the patient and his . Continue PT /OT. Weight placement either at the [facility] or back in [place] closer to home . Following. Time Spent With Patient Time with patient: 15 - 25 minutes Subjective Subjective Date/Time Seen: 10/18/19 11:37 Post Op day: 1 Principal diagnosis: Right bipolar hemiarthroplasty Interval history: 74-year-old male postop day one right hip bipolar hemiarthroplasty. Experiencing some pain in the right hip area however it is not the same as what he had before. This is more surgical pain. Per his , having still little bit of confusion. Exam Const: General: cooperative, no acute distress and alert Nutritional Appearance: other Orientation/consciousness: Other orientation findings ( Seems to know where he is; answers questions appropriately) Limitations: no limitations HENMT: Head: normal to inspection Ears: hearing grossly normal bilaterally Face and sinus: face symmetric Mouth: Yes moist mucous membranes Teeth and gingiva: fair dentition Eyes: Alignment and Position: alignment normal and position normal Sclera: sclerae normal Neck: Neck: normal visual inspection and nontender Chest: Chest palpation & inspection: normal inspection of the chest Resp: Effort & Inspection: normal respiratory effort and able to speak in complete sentences GI: Inspection: other ( nondistended) Skin: General skin exam: normal color Rashes: no rashes Neuro: General: patient oriented x3 Cognition (Neuro): normal cognition Speech: normal speech Gait exam (Neuro): Other gait observations present Motor exam (neuro): Other motor observations present ( no focal motor deficit either lower extremity) Sensory Exam: normal sensation Extrem: General: normal to inspection and other Other: Exam of the right hip wound shows no drainage, erythema and only minimal swelling. Calves nontender. Psych: Appearance: grossly normal Mental Status: mental status grossly normal Objective Data Vital Signs Vital Signs: Vital Signs - 24 hr 10/17/19 14:00 10/17/19 18:42 10/17/19 20:17 Temperature 98.9 F Pulse Rate 70 84 Respiratory Rate 18 Blood Pressure 124/76 Pulse Oximetry 93 95 10/17/19 21:54 10/18/19 06:00 10/18/19 09:02 Temperature 99.4 F 99.0 F Pulse Rate 82 85 Respiratory Rate 18 18 Blood Pressure 118/70 119/75 Pulse Oximetry 95 95 90 10/18/19 09:14 10/18/19 10:51 Temperature Pulse Rate 85 Respiratory Rate Blood Pressure Pulse Oximetry 94 Intake/Output Intake/Output: Intake & Output 10/15/19 10/16/19 10/17/19 10/18/19 23:59 23:59 23:59 23:59 Intake Total 1620 / 1620 3630 / 3630 1050 / 1050 Output Total 650 / 650 1000 / 800.0 1600 / 1600 Balance 970 / 970 2630 / 2830.0 -550 / -550 Meds/Results Medications: Active Medications Generic Name Dose Route Start Last Admin Trade Name Freq PRN Reason Stop Dose Admin Acetaminophen 1,000 mg 10/17/19 15:00 10/18/19 09:13 Tylenol Tablet PO 1,000 mg Q6H ELEAZAR Administration Atorvastatin Calcium 20 mg 10/16/19 09:00 10/18/19 09:14 Lipitor PO 20 mg DAILY ELEAZAR Administration Budesonide/Formoterol Fumarate 2 puff 10/16/19 08:00 10/18/19 09:01 Symbicort 160-4.5 Mcg (*Sp) Inhaler INHALATION 2 puff Q12HRT ELEAZAR Administration Bupropion HCl 150 mg 10/16/19 09:00 10/18/19 09:14 Wellbutrin Xl (24 Hr) PO 150 mg QAM ELEAZAR Administration Citalopram Hydrobromide 40 mg 10/16/19 09:00 10/18/19 09:14 Celexa PO 40 mg DA
[2019-10-18 12:46] LABS: Glucose Point of Care 224 (65-105)
[2019-10-18] MEDS: INSULIN ASPART (*BKC) 100 UNITS/ML SUB-Q (13:18)
[2019-10-18 13:35] VITALS: BMI 10.0
[2019-10-18 14:00] VITALS: BP 137/74; PULSE 89; RESP 20; TEMP 37.1; O2SAT 93
--- NOTE | 2019-10-18 15:05 | P.PNAN_ITS ---
Anes - Prog Note Post-Op Date/Time: 10/18/19 15:05 Cardiovascular status: normal Respiratory status: normal Airway patency: baseline Mental status: baseline Post-Op hydration status: normal Vital Signs: Last Vital Signs Temp 37.2 C 10/18/19 06:00 Pulse 85 10/18/19 09:14 Resp 18 10/18/19 06:00 BP 119/75 10/18/19 06:00 Pulse Ox 94 10/18/19 10:51 I/O: Intake & Output 10/17/19 10/18/19 10/18/19 23:59 07:59 15:59 Intake Total 2080 1050 240 Output Total 450 1600 Balance 1630 -550 240 Laboratory Tests 10/18/19 05:21 10/18/19 05:21 10/17/19 10/17/19 10/18/19 17:58 20:36 05:21 WBC 7.5 RBC 3.53 L Hgb 11.1 L Hct 33.0 L MCV 93.5 MCH 31.4 MCHC 33.6 RDW 13.9 Plt Count 111 L MPV 9.3 Immature Gran % (Auto) 0.8 H Neut % (Auto) 82.6 H Lymph % (Auto) 7.8 L [place] % (Auto) 7.6 Eos % (Auto) 0.9 Baso % (Auto) 0.3 Lymph # (Auto) 0.58 L [place] # (Auto) 0.6 Eos # (Auto) 0.1 Baso # (Auto) 0.0 Abs Immat Gran (auto) 0.06 H Absolute Neuts (auto) 6.2 Absolute Nucleated RBC 0.0 Nucleated RBC % 0.0 Sodium Potassium Chloride Carbon Dioxide BUN Creatinine Estim Creat Clear Calc Estimated GFR Glucose POC Capillary Glucose 334 H 211 H Calcium 10/18/19 10/18/19 10/18/19 05:21 08:50 12:35 WBC RBC Hgb Hct MCV MCH MCHC RDW Plt Count MPV Immature Gran % (Auto) Neut % (Auto) Lymph % (Auto) [place] % (Auto) Eos % (Auto) Baso % (Auto) Lymph # (Auto) [place] # (Auto) Eos # (Auto) Baso # (Auto) Abs Immat Gran (auto) Absolute Neuts (auto) Absolute Nucleated RBC Nucleated RBC % Sodium 133 L Potassium 3.7 Chloride 101 Carbon Dioxide 25 BUN 21 H Creatinine 1.60 H Estim Creat Clear Calc 35 Estimated GFR 42 L Glucose 148 H POC Capillary Glucose 150 H 224 H Calcium 7.2 L Microbiology 10/16/19 11:48 Nasopharynx MRSA Culture - Final Post-procedural complaints: none Patient Feedback: Patient satisfied with anesthetic care.
--- NOTE | 2019-10-18 16:03 | PM.IMPN ---
Progress Note: A&P Assessment and Plan (1) Subcapital fracture of right femur: Qualifiers: Encounter type: initial encounter Fracture type: closed Qualified Code(s): S72.011A - Unspecified intracapsular fracture of right femur, initial encounter for closed fracture Code(s): S72.011A - Unspecified intracapsular fracture of right femur, initial encounter for closed fracture Status: Acute Assessment and Plan: Patient presents with right leg pain after a fall; imaging demonstrated right subcapital femoral neck fracture now POD#1 right bipolar hip replacement by Dr Braxton. patient's pain is 5/10 at this time and he is continuing to work with therapy postop. continue monitoring patient's pain and symptoms postop. Appreciate Dr Braxton's input. Pain control and DVT prophylaxis per his recommendations. (2) Altered mental status: Qualifiers: Altered mental status type: unspecified Qualified Code(s): R41.82 - Altered mental status, unspecified Code(s): R41.82 - Altered mental status, unspecified Status: Acute Assessment and Plan: Confused postoperatively. He was slow to answer questions and appears drowsy. May be related to pain medications and anesthesia. repeat CT brain showed no acute abnormality, but it showed mild vascular changes. I explained to the patient's that this could mean he could be showing signs of dementia, being a new environment, recent anesthesia, narcotic pain medications, could all be causing his confusion. Vital signs are otherwise stable. Will monitor, RN will continue neuro checks. (3) COPD (chronic obstructive pulmonary disease): Qualifiers: COPD type: unspecified COPD Qualified Code(s): J44.9 - Chronic obstructive pulmonary disease, unspecified Code(s): J44.9 - Chronic obstructive pulmonary disease, unspecified Status: Chronic Assessment and Plan: No evidence of respiratory distress postoperatively and he is on room air at this time. Preop CXR showed mild bibasilar atelectasis. Incentive spirometer ordered when appropriate. Continue his home symbicort; will add xopenex PRN for SOB. (4) HTN (hypertension): Qualifiers: Hypertension type: unspecified Qualified Code(s): I10 - Essential (primary) hypertension Code(s): I10 - Essential (primary) hypertension Status: Chronic Assessment and Plan: Stable, continue his home medications with metoprolol. Monitor BP and adjust treatment as needed. (5) Type 2 diabetes mellitus: Qualifiers: Diabetes mellitus snf insulin use: with chemical radiation technician use Diabetes mellitus complication status: without complication Qualified Code(s): E11.9 - Type 2 diabetes mellitus without complications; Z79.4 - volcanology teacher (current) use of insulin Code(s): E11.9 - Type 2 diabetes mellitus without complications Status: Chronic Assessment and Plan: Hgb A1c is 7.7. His home metformin is held. Continue to monitor with accu-cheks and cover with sliding scale insulin, adjust insulin regimen as needed. (6) Coronary artery disease: Qualifiers: Coronary Disease-Associated Artery/Lesion type: [place] artery [place] vs. 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 patient's says he has intermittent angina chest pain and he takes nitro sublingual for. the patient was having so
[2019-10-18 17:28] LABS: Glucose Point of Care 182 (65-105)
--- NOTE | 2019-10-18 17:54 | PC.NURSE ---
patient unable to urinate since otero cath removed. bladder scan showing 795. straight cathed for 1200 ml urine.
[2019-10-18 22:00] VITALS: BP 123/70; PULSE 96; RESP 18; TEMP 36.4; O2SAT 90
[2019-10-18 22:15] LABS: Glucose Point of Care 205 (65-105)
[2019-10-19] MEDS: ACETAMINOPHEN 500 MG TABLET 1000 MG PO ×4 (02:51→20:34)
[2019-10-19 06:00] VITALS: BP 118/66; PULSE 92; RESP 18; TEMP 36.5; O2SAT 94
[2019-10-19 06:05] LABS: Hematocrit 34.1 % (42.0-52.0); Hemoglobin 11.6 g/dL (14.0-18.0); Mean Corpuscular Volume 91.2 fl (80-100); Platelet Count Result 125 k/mm3 (150-375); Red Blood Count 3.74 M/mm3 (4.6-6.20); Red Cell Distribution Width 13.6 % (11.5-14.5); White Blood Count 7.1 K/mm3 (4.5-10.0)
[2019-10-19 06:22] LABS: Blood Urea Nitrogen 25 mg/dL (9-20); Calcium 7.5 mg/dL (8.4-10.2); Carbon Dioxide 25 mmol/L (22-30); Chloride 102 mmol/L (98-107); Estimated CRCL calculation 33 ml/min; Estimated Glomerular Filt Rate 39; Glucose 150 mg/dL (75-110); Potassium 3.5 mmol/L (3.4-5.0); Sodium 134 mmol/L (137-145)
[2019-10-19 08:43] LABS: Glucose Point of Care 153 (65-105)
[2019-10-19] MEDS: FAMOTIDINE 20 MG TABLET PO ×2 (09:25→20:34)
[2019-10-19] MEDS: ATORVASTATIN 20 MG TABLET PO (09:25)
[2019-10-19] MEDS: DOCUSATE SODIUM 100 MG CAPSULE PO ×2 (09:25→16:54)
[2019-10-19] MEDS: CITALOPRAM HYDROBROMIDE 20 MG TABLET 40 MG PO (09:25)
[2019-10-19] MEDS: ENOXAPARIN 30 MG/0.3 ML SYRINGE SUB-Q (09:25)
[2019-10-19] MEDS: RANOLAZINE 500 MG TAB.ER.12H PO ×2 (09:25→20:34)
[2019-10-19] MEDS: buPROPion HCL XL (24 HR) 150 MG TABCR PO (09:25)
[2019-10-19] MEDS: FUROSEMIDE 40 MG TABLET PO (09:26)
[2019-10-19 09:27] VITALS: PULSE 90
[2019-10-19] MEDS: METOPROLOL TARTRATE 50 MG TAB PO (09:27)
[2019-10-19 09:34] VITALS: O2SAT 92
--- NOTE | 2019-10-19 11:06 | PM.PNORT ---
Progress Note: A&P Assessment and Plan (1) Subcapital fracture of right femur: Qualifiers: Encounter type: initial encounter Fracture type: closed Qualified Code(s): S72.011A - Unspecified intracapsular fracture of right femur, initial encounter for closed fracture Code(s): S72.011A - Unspecified intracapsular fracture of right femur, initial encounter for closed fracture Status: Acute Assessment and Plan: 74-year-old male postop day two right hip bipolar hemiarthroplasty. Bit sleepy. Percocet will be discontinued and rely only on Tylenol. Awaiting placement. Following. Continue with PT/OT. Subjective Subjective Date/Time Seen: 10/19/19 11:06 Post Op day: 2 Principal diagnosis: Status post right hip bipolar hemiarthroplasty Exam Const: General: cooperative, no acute distress and alert Nutritional Appearance: other Orientation/consciousness: Other orientation findings ( a little sleepy this morning) HENMT: Head: normal to inspection Ears: hearing grossly normal bilaterally Face and sinus: face symmetric Mouth: Yes moist mucous membranes Teeth and gingiva: fair dentition Eyes: Alignment and Position: alignment normal and position normal Sclera: sclerae normal Neck: Neck: normal visual inspection and nontender Chest: Chest palpation & inspection: normal inspection of the chest Resp: Effort & Inspection: normal respiratory effort and able to speak in complete sentences GI: Inspection: other ( nontender, nondistended) Skin: General skin exam: normal color Rashes: no rashes Neuro: General: patient oriented x3 Cognition (Neuro): normal cognition Speech: normal speech Gait exam (Neuro): Other gait observations present Motor exam (neuro): Other motor observations present ( unremarkable right lower extremity) Sensory Exam: normal sensation Extrem: General: normal to inspection and other Other: Exam of the right hip shows the wound healing nicely. Very little swelling and bruising. Calves nontender Psych: Appearance: grossly normal Mental Status: mental status grossly normal Objective Data Vital Signs Vital Signs: Vital Signs - 24 hr 10/18/19 14:00 10/18/19 22:00 10/19/19 06:00 Temperature 98.7 F 97.6 F 97.7 F Pulse Rate 89 96 92 Respiratory Rate 20 18 18 Blood Pressure 137/74 123/70 118/66 Pulse Oximetry 93 90 94 10/19/19 09:27 07/22/20 09:34 Temperature Pulse Rate 90 Respiratory Rate Blood Pressure Pulse Oximetry 92 Intake/Output Intake/Output: Intake & Output 10/16/19 10/17/19 10/18/19 10/19/19 23:59 23:59 23:59 23:59 Intake Total 1620 / 1620 3630 / 3630 3490 / 3490 350 / 350 Output Total 650 / 650 1000 / 800.0 4000 / 4000 Balance 970 / 970 2630 / 2830.0 -510 / -510 350 / 350 Meds/Results Medications: Active Medications Generic Name Dose Route Start Last Admin Trade Name Freq PRN Reason Stop Dose Admin Acetaminophen 1,000 mg 10/17/19 15:00 10/19/19 09:25 Tylenol Tablet PO 1,000 mg Q6H ELEAZAR Administration Atorvastatin Calcium 20 mg 10/16/19 09:00 10/19/19 09:25 Lipitor PO 20 mg DAILY ELEAZAR Administration Budesonide/Formoterol Fumarate 2 puff 10/16/19 08:00 10/19/19 09:29 Symbicort 160-4.5 Mcg (*Sp) Inhaler INHALATION 2 puff Q12HRT ELEAZAR Administration Bupropion HCl 150 mg 10/16/19 09:00 10/19/19 09:25 Wellbutrin Xl (24 Hr) PO 150 mg QAM ELEAZAR Administration Citalopram Hydrobromide 40 mg 10/16/19 09:00 10/19/19 09:25 Celexa PO 40 mg DAILY ELEAZAR Administration Dextrose 12.5 gm 10/16/19 02:47 Dextrose 50% Syringe IV PUSH PRN PRN Hypoglycemia Protocol Docusate Sodium 100 mg 10/17/19 17:00 10/19/19 09:25 Colace Capsule PO 100 mg BID ELEAZAR Administration Enoxaparin Sodium 30 mg 10/18/19 09:00 10/19/19 09:25 Lovenox SUB-Q 30 mg DAILY ELEAZAR Administration Famotidine 20 mg 10/17/19 21:00 10/19/19 09:25 Pepcid PO 20 mg Q12HR ELEAZAR Admin
[2019-10-19 12:52] LABS: Glucose Point of Care 176 (65-105)
[2019-10-19 14:00] VITALS: BP 142/70; PULSE 86; RESP 18; TEMP 36.8; O2SAT 93
--- NOTE | 2019-10-19 14:21 | PM.IMPN ---
Progress Note: A&P Assessment and Plan (1) Subcapital fracture of right femur: Qualifiers: Encounter type: initial encounter Fracture type: closed Qualified Code(s): S72.011A - Unspecified intracapsular fracture of right femur, initial encounter for closed fracture Code(s): S72.011A - Unspecified intracapsular fracture of right femur, initial encounter for closed fracture Status: Acute Assessment and Plan: Patient presents with right leg pain after a fall; imaging demonstrated right subcapital femoral neck fracture now POD#2 right bipolar hip replacement by Dr Braxton. patient's pain is 0/10 at this time but increases with any movement of his hip. Dr. Braxton is going to hold all narcotics from him and only give him scheduled Tylenol we are still working on SNF placement for rehab. continue monitoring patient's pain and symptoms postop. Appreciate Dr Braxton's input. Pain control and DVT prophylaxis per his recommendations. (2) Altered mental status: Qualifiers: Altered mental status type: unspecified Qualified Code(s): R41.82 - Altered mental status, unspecified Code(s): R41.82 - Altered mental status, unspecified Status: Acute Assessment and Plan: Confused postoperatively. He was slow to answer questions and appears drowsy. May be related to pain medications and anesthesia. repeat CT brain showed no acute abnormality, but it showed mild vascular changes. I explained to the patient's that this could mean he could be showing signs of dementia, being a new environment, recent anesthesia, narcotic pain medications, could all be causing his confusion. Today the patient is doing much better. Labs and Vital signs are otherwise stable. Will monitor, RN will continue neuro checks. (3) COPD (chronic obstructive pulmonary disease): Qualifiers: COPD type: unspecified COPD Qualified Code(s): J44.9 - Chronic obstructive pulmonary disease, unspecified Code(s): J44.9 - Chronic obstructive pulmonary disease, unspecified Status: Chronic Assessment and Plan: No evidence of respiratory distress postoperatively and he is on room air at this time. Preop CXR showed mild bibasilar atelectasis. Incentive spirometer ordered when appropriate. Continue his home symbicort; will add xopenex PRN for SOB. (4) HTN (hypertension): Qualifiers: Hypertension type: unspecified Qualified Code(s): I10 - Essential (primary) hypertension Code(s): I10 - Essential (primary) hypertension Status: Chronic Assessment and Plan: Stable, continue his home medications with metoprolol. Monitor BP and adjust treatment as needed. (5) Type 2 diabetes mellitus: Qualifiers: Diabetes mellitus long term care pharmacist insulin use: with senior care use Diabetes mellitus complication status: without complication Qualified Code(s): E11.9 - Type 2 diabetes mellitus without complications; Z79.4 - correction (current) use of insulin Code(s): E11.9 - Type 2 diabetes mellitus without complications Status: Chronic Assessment and Plan: Hgb A1c is 7.7. His home metformin is held. Continue to monitor with accu-cheks and cover with sliding scale insulin, adjust insulin regimen as needed. (6) Coronary artery disease: Qualifiers: Coronary Disease-Associated Artery/Lesion type: [place] artery [place] vs. transplanted heart: [place] heart Associated angina: without angina Qualified Code(s): I25.10 - Atherosclerotic heart disease of [place] coronary artery without angina pectoris Code(s): I25.10 - Atherosclerotic heart disease of [place] coronary artery without angina pectoris Status: Chronic Assessment and Plan: Patient describes having 1 coronary stent placed, unfortunate
[2019-10-19] MEDS: polyethylene glycoL 3350 17 GM POWD.PACK PO (15:00)
[2019-10-19] MEDS: MAGNESIUM HYDROXIDE SUSP 30 ML UDC PO (15:00)
[2019-10-19 17:50] LABS: Glucose Point of Care 170 (65-105)
[2019-10-19 20:00] VITALS: O2SAT 96
[2019-10-19 20:57] LABS: Glucose Point of Care 192 (65-105)
[2019-10-19 22:00] VITALS: BP 118/77; PULSE 90; RESP 16; TEMP 37.3; O2SAT 93
[2019-10-20] MEDS: ACETAMINOPHEN 500 MG TABLET 1000 MG PO ×3 (03:26→14:59)
[2019-10-20 06:00] VITALS: BP 111/75; PULSE 79; RESP 16; TEMP 36.9; O2SAT 93
[2019-10-20 06:52] LABS: Blood Urea Nitrogen 25 mg/dL (9-20); Calcium 7.7 mg/dL (8.4-10.2); Carbon Dioxide 29 mmol/L (22-30); Chloride 102 mmol/L (98-107); Estimated CRCL calculation 38 ml/min; Estimated Glomerular Filt Rate 46; Glucose 150 mg/dL (75-110); Sodium 137 mmol/L (137-145)
[2019-10-20] MEDS: polyethylene glycoL 3350 17 GM POWD.PACK PO (08:47)
[2019-10-20] MEDS: RANOLAZINE 500 MG TAB.ER.12H PO (08:47)
[2019-10-20] MEDS: FUROSEMIDE 40 MG TABLET PO (08:47)
[2019-10-20 08:48] VITALS: PULSE 88
[2019-10-20] MEDS: ENOXAPARIN 30 MG/0.3 ML SYRINGE SUB-Q (08:48)
[2019-10-20] MEDS: FAMOTIDINE 20 MG TABLET PO (08:48)
[2019-10-20] MEDS: DOCUSATE SODIUM 100 MG CAPSULE PO ×2 (08:48→17:44)
[2019-10-20] MEDS: ATORVASTATIN 20 MG TABLET PO (08:48)
[2019-10-20] MEDS: METOPROLOL TARTRATE 50 MG TAB PO (08:48)
[2019-10-20] MEDS: buPROPion HCL XL (24 HR) 150 MG TABCR PO (08:48)
[2019-10-20] MEDS: CITALOPRAM HYDROBROMIDE 20 MG TABLET 40 MG PO (08:48)
[2019-10-20] MEDS: LEVALBUTEROL HFA (*SP) 15 GM INHALER 2 PUFF INHALATION ×2 (08:49→15:05)
[2019-10-20 09:07] LABS: Glucose Point of Care 158 (65-105)
--- NOTE | 2019-10-20 11:42 | PM.DS ---
DS: Admitting Diagnosis Admitting Diagnosis Admitting Diagnosis: Unspecified intracapsular fracture of right femur, initial encounter for closed fracture DS: Discharge Diagnosis Discharge Diagnosis (1) Subcapital fracture of right femur: Qualifiers: Encounter type: initial encounter Fracture type: closed Qualified Code(s): S72.011A - Unspecified intracapsular fracture of right femur, initial encounter for closed fracture Code(s): S72.011A - Unspecified intracapsular fracture of right femur, initial encounter for closed fracture Status: Acute Assessment and Plan: Patient presents with right leg pain after a fall; imaging demonstrated right subcapital femoral neck fracture now POD#3 right bipolar hip replacement by Dr Braxton. patient is feeling better today and is doing well with therapy. He was accepted into a swing bed for further physical and occupational therapy Dr. Braxton would like him to continue taking 325 mg aspirin daily for 8 weeks and taking arthritis strength Tylenol 1 tablets 3 times a day for his pain control patient is otherwise stable at this time to be discharged to the swing bed facility. (2) Altered mental status: Qualifiers: Altered mental status type: unspecified Qualified Code(s): R41.82 - Altered mental status, unspecified Code(s): R41.82 - Altered mental status, unspecified Status: Acute Assessment and Plan: Confused postoperatively. He was slow to answer questions and appears drowsy. May be related to pain medications and anesthesia. repeat CT brain showed no acute abnormality, but it showed mild vascular changes. I explained to the patient's that this could mean he could be showing signs of dementia, being a new environment, recent anesthesia, narcotic pain medications, could all be causing his confusion. Today the patient is doing much better. Labs and Vital signs are otherwise stable. the patient's states he is back to his baseline. (3) COPD (chronic obstructive pulmonary disease): Qualifiers: COPD type: unspecified COPD Qualified Code(s): J44.9 - Chronic obstructive pulmonary disease, unspecified Code(s): J44.9 - Chronic obstructive pulmonary disease, unspecified Status: Chronic Assessment and Plan: No evidence of respiratory distress postoperatively and he is on room air at this time. Preop CXR showed mild bibasilar atelectasis. Incentive spirometer ordered when appropriate. Continue his home symbicort (4) HTN (hypertension): Qualifiers: Hypertension type: unspecified Qualified Code(s): I10 - Essential (primary) hypertension Code(s): I10 - Essential (primary) hypertension Status: Chronic Assessment and Plan: Stable, continue his home medications with metoprolol. (5) Type 2 diabetes mellitus: Qualifiers: Diabetes mellitus complication status: without complication Diabetes mellitus usp insulin use: with termite control technician use Qualified Code(s): E11.9 - Type 2 diabetes mellitus without complications; Z79.4 - group home (current) use of insulin Code(s): E11.9 - Type 2 diabetes mellitus without complications Status: Chronic Assessment and Plan: Hgb A1c is 7.7. Restart his metformin upon discharge and have him check his glucose regularly. (6) Coronary artery disease: Qualifiers: Associated angina: without angina Coronary Disease-Associated Artery/Lesion type: [place] artery [place] vs. transplanted heart: [place] heart Qualified Code(s): I25.10 - Atherosclerotic heart disease of [place] coronary artery without angina pectoris Code(s): I25.10 - Atherosclerotic heart disease of [place] coronary artery without angina pectoris Status: Chronic Ass
[2019-10-20] MEDS: MAGNESIUM HYDROXIDE SUSP 30 ML UDC PO (12:14)
[2019-10-20] MEDS: INSULIN ASPART (*BKC) 100 UNITS/ML SUB-Q (12:21)
[2019-10-20 12:50] LABS: Glucose Point of Care 207 (65-105)
[2019-10-20 14:00] VITALS: BP 119/64; PULSE 91; RESP 16; TEMP 36.8; O2SAT 96
--- NOTE | 2019-10-20 14:47 | PCOTNOTE ---
Attempted to see patient x3 this date. First attempt, pt was with physical therapy. Second attempt, patient was eating lunch. Third attempt, pt was sleeping soundly and did not disturb at this time.
[2019-10-20] MEDS: BISACODYL 10 MG SUPPOSITORY RECTAL (16:08)
[2019-10-20 18:06] LABS: Glucose Point of Care 162 (65-105)
== END 2019-10-20 19:30 | disposition swing bed (61) | DRG 470 ==
PROVIDERS: Orthopaedic Surgery; Physician Assistant; Admitting Provider Family Medicine; PCP Nurse Practitioner Family; Visit Provider Physician Assistant
PROC: 0SRR0JA Replacement of Right Hip Joint, Femoral Surface with Synthetic Substitute, Uncemented, Open Approach (ICD-10-PCS; CPT 27125; principal; 2019-10-17 07:30)
DX: S72.011A Unspecified intracapsular fracture of right femur, initial encounter for closed fracture (principal); W01.0XXA Fall on same level from slipping, tripping and stumbling without subsequent striking against object, initial encounter; Y93.01 Activity, walking, marching and hiking; Y92.9 Unspecified place or not applicable; J44.9 Chronic obstructive pulmonary disease, unspecified; I10 Essential (primary) hypertension; E11.9 Type 2 diabetes mellitus without complications; I25.10 Atherosclerotic heart disease of native coronary artery without angina pectoris; Z95.5 Presence of coronary angioplasty implant and graft; N40.0 Benign prostatic hyperplasia without lower urinary tract symptoms; F32.9 Major depressive disorder, single episode, unspecified; F41.1 Generalized anxiety disorder; M19.90 Unspecified osteoarthritis, unspecified site; H81.09 Meniere's disease, unspecified ear; Z72.0 Tobacco use; R41.82 Altered mental status, unspecified; R79.89 Other specified abnormal findings of blood chemistry
CPT/HCPCS: 36415; 70450; 71045; 73502; 80048; 80053; 83735; 83880; 84100; 85025; 85027; 87081; 93005; 94640; 97110; 97116; 97161; 97165; 97530; 97535; A9270; C1713; C1776; J0131; J0690; J1100; J1170; J1650; J1815; J2370; J2405; J2704; J2710; J3010; J7030; J7120

== ENCOUNTER 2019-10-20 20:05 | Inpatient (IN) | payer MEDICARE, OTHER, SELFPAY ==
[2019-10-20 20:27] VITALS: BMI 23.2
[2019-10-21] VITALS: BP 142/82; PULSE 87; RESP 20; TEMP 35.9; O2SAT 94
[2019-10-21] MEDS: ACETAMINOPHEN 325 MG TABLET 650 MG PO (01:24)
[2019-10-21 08:00] VITALS: BP 146/81; PULSE 82; RESP 18; TEMP 36.4; O2SAT 93
--- NOTE | 2019-10-21 08:21 | PM.IMHP ---
H&P: HPI History of Present Illness Chief complaint: Rehab Narrative: Davis Hunter Jr. is a 74 year old male admitted to [facility] rehabilitation therapy yesterday from [facility]. On October 15, Davis was admitted to [facility] due to a right hip fracture. He had lost his balance when walking on an incline and fell on his right side. He was unable to get up, arrived at [facility] and was found to have a subcapital fracture of the right femoral neck. His chronic health history includes COPD, hypertension, type 2 diabetes with elevated A1C, CKD (Creatinine 1.50 recently). Dr. Gulshan winchester orthopedic surgeon evaluated the patient on October 15 and decided that the patient would have a total hip replacement on the right side due to the patient's uncontrolled diabetes and poor kidney function and concerns for wound healing issues. The patient did well with surgery, but did not do well with the Percocet after surgery, he became confused and had altered mental status with a negative CT scan of the head on October 16, his Percocet was discontinued and we are doing our best to avoid narcotics. Review of Systems Review of Systems: All systems reviewed & are unremarkable except as noted in HPI and below Constitutional: Constitutional: Reports as per HPI, Denies excessive sweating, Denies headache(s), Denies increased appetite, Denies snoring, Reports weakness and Denies weight gain Eyes: Eyes: Reports as per HPI, Denies exophthalmos, Denies diplopia, Denies floaters and Denies loss of peripheral vision ENT: Reports as per HPI, Reports Normal hearing present, Denies facial pain, Denies headache(s), Denies epistaxis, Denies odynophagia and Denies tinnitus Cardiovascular: Cardiovascular: Reports as per HPI, Denies chest pain, Denies pedal edema and Denies leg edema Respiratory: Respiratory: Reports as per HPI, Denies cough, Denies dyspnea, Denies dyspnea on exertion and Denies snoring Gastrointestinal: Gastrointestinal: Reports as per HPI, Denies abdominal pain, Denies constipation, Denies diarrhea, Denies nausea, Denies odynophagia and Denies vomiting Genitourinary: Genitourinary: Reports as per HPI Musculoskeletal: Musculoskeletal: Reports as per HPI and Reports myalgias Integumentary/Breasts: Skin/Breast: Reports as per HPI and Reports wounds ( right hip incision with occlusive OR dressing in place, clean and dry) Neurologic: Reports as per HPI, Reports abnormal gait, Denies confusion and Denies headache(s) Psychiatric: Psychiatric: Reports as per HPI and Denies anxiety Endocrine: Endocrine: Denies excessive sweating PMFSH Past Medical History Medical History Arthritis Asthma Benign prostate hyperplasia CHF (congestive heart failure) COPD (chronic obstructive pulmonary disease) Coronary artery disease Depression PAUL (generalized anxiety disorder) HTN (hypertension) Hypercholesterolemia Meniere disease MARLENA (obstructive sleep apnea) Primary generalized (osteo)arthritis Type 2 diabetes mellitus Surgical History Surgical History History of coronary artery stent placement Family History Family History Mother Family history of coronary artery disease Social History Social History Smoking status: Light tobacco smoker Tobacco type: cigars Second hand tobacco smoke exposure: Yes Additional smoking assessment comments: Pt reports smoking a cigar approximately once a week. Alcohol intake: former Drinks per week: 1 Substance use: never Gender identity (if verbalized by the patient): Male Spiritual care concerns: No Meds Home Medications and Allergies Home Medications Medication Instructions Recorded Confirmed Type bupropion HCl 150 mg 24 hr tablet, 150 mg PO QAM #90 tablet 05/09/19 10/20/19 Rx e
[2019-10-21] MEDS: BUDESONIDE/FORMOTEROL (*SP) 160-4.5 MCG 6 GM INH 2 PUFF INHALATION ×2 (09:39→21:21)
[2019-10-21] MEDS: polyethylene glycoL 3350 17 GM POWD.PACK PO (09:41)
[2019-10-21] MEDS: FUROSEMIDE 40 MG TABLET PO (09:41)
[2019-10-21] MEDS: ASPIRIN 325 MG ENTERIC TABLET PO (09:46)
[2019-10-21 09:47] VITALS: PULSE 63
[2019-10-21] MEDS: DOCUSATE SODIUM 100 MG CAPSULE PO ×2 (09:47→16:40)
[2019-10-21] MEDS: METOPROLOL TARTRATE 50 MG TAB PO (09:47)
[2019-10-21] MEDS: metFORMIN HCL 500 MG TABLET PO ×2 (09:47→16:40)
[2019-10-21] MEDS: buPROPion HCL XL (24 HR) 150 MG TABCR PO (09:47)
[2019-10-21] MEDS: CITALOPRAM HYDROBROMIDE 20 MG TABLET 40 MG PO (09:47)
[2019-10-21] MEDS: ATORVASTATIN 10 MG TABLET 20 MG PO (09:47)
[2019-10-21] MEDS: FAMOTIDINE 20 MG TABLET PO ×2 (09:54→21:20)
[2019-10-21] MEDS: LIDOCAINE 5% PATCH 3 PATCH TRANSDERM (10:56)
[2019-10-21] MEDS: ACETAMINOPHEN 500 MG TABLET 1000 MG PO ×3 (10:58→21:21)
[2019-10-21 11:49] LABS: Glucose Point of Care 174 (65-105)
[2019-10-21 15:55] VITALS: BP 128/72; PULSE 80; RESP 16; TEMP 36.3; O2SAT 96
[2019-10-21 17:07] LABS: Glucose Point of Care 131 (65-105)
--- NOTE | 2019-10-21 20:06 | PM.IMHP ---
H&P: HPI History of Present Illness Chief complaint: Rehab Narrative: Davis Hunter Jr. is a 74 year old male fell walking up an incline on 10/15/2019 sustaining a subcapital fracture of his right hip. He had bipolar hip replacement done by Dr. Braxton on 10/16. Post anesthesia he had confusion. CT scan showed no acute abnormalities. His mentation returned over the next several days off of narcotics. Was admitted to the swing bed for rehab. his pain has been controlled with Tylenol. Has a past history of: 1. COPD controlled with the Symbicort; 2. Htn controlled with metoprolol 50 mg daily; 3) Type 2 Diabetes Mellitus controlled with metformin - discharged on 500 mg daily; 4) CAD with occasional episodes of chest pain controlled with prn NTG (The frequency of episodes has not recently changed) and ranolazine 500 mg b.i.d.; 4) CKD with stable Creatinine of 1.5; 5) CHF with peripheral edema controlled with Lasix 40 mg daily; depression controlled with citalopram and bupropion daily. Review of Systems Review of Systems: All systems reviewed & are unremarkable except as noted in HPI and below Constitutional: Constitutional: Denies body ache(s) and Denies chills Eyes: Eyes: Denies blurry vision ENT: Denies dysphagia Cardiovascular: Cardiovascular: Reports as per HPI, Denies chest pain, Denies dyspnea and Denies dyspnea on exertion Comments: chronic lower extremity swelling Respiratory: Respiratory: Reports as per HPI, Denies cough, Denies dyspnea, Denies dyspnea on exertion and Denies snoring Gastrointestinal: Gastrointestinal: Reports as per HPI, Denies abdominal pain, Denies constipation, Denies diarrhea, Denies nausea, Denies odynophagia and Denies vomiting Comments: Last BM yesterday. Sometimes feels urge to defecate but when he gets to the bathroom it has passed. Genitourinary: Genitourinary: Denies dysuria Musculoskeletal: Musculoskeletal: Reports no additional musculoskeletal complaints and Reports abnormal gait Integumentary/Breasts: Skin/Breast: Reports as per HPI, Denies rash and Reports wounds ( from right hip surgery. Dressing applied ) Neurologic: Reports as per HPI, Reports Normal hearing present, Denies confusion, Denies headache(s) and Reports weakness Psychiatric: Psychiatric: Reports as per HPI, Denies anxiety, Denies confusion and Denies depression Endocrine: Endocrine: Denies excessive sweating, Denies polydipsia and Denies polyuria Hematologic/Lymphatic: Hematologic/Lymphatic: Reports easy bruising (forearms) Allergic/Immunologic: Allergic/Immunologic: Denies urticaria, Denies lip swelling and Denies seasonal rhinorrhea PMF Past Medical History Medical History Arthritis Asthma Benign prostate hyperplasia CHF (congestive heart failure) COPD (chronic obstructive pulmonary disease) Coronary artery disease Depression PAUL (generalized anxiety disorder) HTN (hypertension) Hypercholesterolemia Meniere disease MARLENA (obstructive sleep apnea) Primary generalized (osteo)arthritis Type 2 diabetes mellitus Surgical History Surgical History History of coronary artery stent placement Family History Family History Mother Family history of coronary artery disease Social History Social History Smoking status: Light tobacco smoker Tobacco type: cigars Second hand tobacco smoke exposure: Yes Additional smoking assessment comments: Pt reports smoking a cigar approximately once a week. Alcohol intake: former Drinks per week: 1 Substance use: never Gender identity (if verbalized by the patient): Male Spiritual care concerns: No Meds Home Medications and Allergies Home Medications Medication Instructions Recorded Confirmed Type bupropion HCl 150 mg 24 hr tablet, 150 mg PO QA
[2019-10-21 22:21] LABS: Glucose Point of Care 114 (65-105)
--- NOTE | 2019-10-21 22:21 | PC.NURSE ---
Patient sleeping quietly in bed. No signs of distress noted. Call light and belongings at side.
[2019-10-21 22:29] LABS: Glucose Point of Care 193 (65-105)
[2019-10-22] VITALS: BP 106/54; PULSE 86; RESP 16; TEMP 36.2; O2SAT 97
[2019-10-22] MEDS: ACETAMINOPHEN 500 MG TABLET 1000 MG PO ×4 (04:45→21:15)
[2019-10-22 07:09] LABS: Hematocrit 34.6 % (37.0-46.0); Hemoglobin 11.6 g/dL (12.4-15.3); Mean Corpuscular HGB Conc 33.5 g/dL (32.0-36.0); Mean Corpuscular Hemoglobin 31.8 pg (27.0-31.0); Mean Corpuscular Volume 94.8 fL (78.0-102.0); Mean Platelet Volume 8.1 fl (8.7-11.0); Platelet Count Result 151 K/mm3 (150-420); Red Blood Count 3.65 M/mm3 (4.70-6.10); White Blood Count 6.7 K/mm3 (4.8-10.8)
[2019-10-22 07:23] LABS: Alanine Aminotransferase 44 U/L (16-63); Albumin Level 2.2 g/dL (3.4-5.0); Alkaline Phosphatase 83 U/L (46-116); Anion Gap 9.5 mmol/L (7-16); Aspartate Amino Transferase 52 U/L (15-37); Bilirubin,Total 0.6 mg/dL (0.00-1.00); Blood Urea Nitrogen 23 mg/dL (7-18); Calcium 8.6 mg/dL (8.5-10.1); Carbon Dioxide 32 mmol/L (21-32); Chloride 105 mmol/L (98-108); Estimated CRCL calculation 30 ml/min; Estimated Glomerular Filt Rate 35; Glucose 137 mg/dL (70-99); Osmolality Calculated 299 mOsm/kg (285-295); Potassium 4.5 mmol/L (3.5-5.1); Sodium 142 mmol/L (136-145); Total Protein 5.7 g/dL (6.4-8.2)
[2019-10-22 07:45] LABS: Band Neutrophils Percent 1 % (0-6); Basophils Percent Manual 0 % (0-1); Eosinophils Absolute Manual 0.13 K/mm3 (0.02-0.5); Eosinophils Percent Manual 2 % (1-6); Lymphocytes Absolute Manual 1.54 K/mm3 (1.1-4.5); Lymphocytes Percent Manual 23 % (18-44); Monocytes Percent Manual 9 % (3-9); Myelocytes Percent 3 %; Neutrophils Absolute Manual 4.22 K/mm3 (1.3-6.7); Neutrophils Percent Manual 62 % (46-73); Total Cells Counted 100
[2019-10-22 07:46] LABS: Magnesium 2.3 mg/dL (1.8-2.4)
[2019-10-22 08:00] VITALS: BP 129/80; PULSE 80; RESP 18; TEMP 36.2; O2SAT 96
[2019-10-22 08:00] LABS: Glucose Point of Care 150 (65-105)
[2019-10-22 08:17] LABS: BNP 9.4 pg/mL (0-100)
[2019-10-22 08:19] LABS: Platelet Estimate Adequate (Adequate)
[2019-10-22] MEDS: BUDESONIDE/FORMOTEROL (*SP) 160-4.5 MCG 6 GM INH 2 PUFF INHALATION ×2 (09:37→21:14)
[2019-10-22] MEDS: LIDOCAINE 5% PATCH 3 PATCH TRANSDERM (09:37)
[2019-10-22] MEDS: buPROPion HCL XL (24 HR) 150 MG TABCR PO (09:38)
[2019-10-22] MEDS: polyethylene glycoL 3350 17 GM POWD.PACK PO (09:38)
[2019-10-22] MEDS: FUROSEMIDE 40 MG TABLET PO (09:38)
[2019-10-22] MEDS: DOCUSATE SODIUM 100 MG CAPSULE PO (09:40)
[2019-10-22] MEDS: FAMOTIDINE 20 MG TABLET PO ×2 (09:40→21:14)
[2019-10-22] MEDS: metFORMIN HCL 500 MG TABLET PO ×2 (09:40→16:02)
[2019-10-22 09:41] VITALS: PULSE 66
[2019-10-22] MEDS: METOPROLOL TARTRATE 50 MG TAB PO (09:41)
[2019-10-22] MEDS: ATORVASTATIN 10 MG TABLET 20 MG PO (09:41)
[2019-10-22] MEDS: CITALOPRAM HYDROBROMIDE 20 MG TABLET 40 MG PO (09:41)
[2019-10-22] MEDS: ASPIRIN 325 MG ENTERIC TABLET PO (09:41)
[2019-10-22 11:45] LABS: Glucose Point of Care 168 (65-105)
[2019-10-22 16:00] VITALS: BP 109/63; PULSE 91; RESP 18; TEMP 36.3; O2SAT 93
[2019-10-22 16:21] LABS: Glucose Point of Care 130 (65-105)
[2019-10-22 23:45] VITALS: BP 150/78; PULSE 84; RESP 16; TEMP 36.7; O2SAT 93
[2019-10-23] MEDS: ACETAMINOPHEN 500 MG TABLET 1000 MG PO ×4 (04:07→21:11)
[2019-10-23 07:35] LABS: Glucose Point of Care 149 (65-105)
[2019-10-23 07:48] VITALS: BP 139/79; PULSE 83; RESP 18; TEMP 36.4; O2SAT 93
[2019-10-23] MEDS: LIDOCAINE 5% PATCH 3 PATCH TRANSDERM (09:18)
[2019-10-23] MEDS: BUDESONIDE/FORMOTEROL (*SP) 160-4.5 MCG 6 GM INH 2 PUFF INHALATION ×2 (09:18→21:11)
[2019-10-23] MEDS: ASPIRIN 325 MG ENTERIC TABLET PO (09:19)
[2019-10-23] MEDS: FUROSEMIDE 40 MG TABLET PO (09:19)
[2019-10-23] MEDS: CITALOPRAM HYDROBROMIDE 20 MG TABLET 40 MG PO (09:19)
[2019-10-23] MEDS: ATORVASTATIN 10 MG TABLET 20 MG PO (09:19)
[2019-10-23 09:20] VITALS: PULSE 83
[2019-10-23] MEDS: FAMOTIDINE 20 MG TABLET PO ×2 (09:20→21:11)
[2019-10-23] MEDS: metFORMIN HCL 500 MG TABLET PO ×2 (09:20→17:11)
[2019-10-23] MEDS: DOCUSATE SODIUM 100 MG CAPSULE PO (09:20)
[2019-10-23] MEDS: METOPROLOL TARTRATE 50 MG TAB PO (09:20)
[2019-10-23] MEDS: buPROPion HCL XL (24 HR) 150 MG TABCR PO (09:21)
[2019-10-23 11:47] LABS: Glucose Point of Care 155 (65-105)
[2019-10-23 16:00] VITALS: BP 113/74; PULSE 95; RESP 18; TEMP 36.3
[2019-10-23 16:43] LABS: Glucose Point of Care 158 (65-105)
[2019-10-23 23:55] VITALS: BP 125/70; PULSE 84; RESP 12; TEMP 36.3; O2SAT 96
[2019-10-24] MEDS: ACETAMINOPHEN 500 MG TABLET 1000 MG PO ×4 (05:12→21:29)
[2019-10-24 08:00] VITALS: BP 123/88; PULSE 80; RESP 18; TEMP 35.9; O2SAT 94
[2019-10-24 08:20] LABS: Glucose Point of Care 173 (65-105)
[2019-10-24] MEDS: LIDOCAINE 5% PATCH 3 PATCH TRANSDERM (09:56)
[2019-10-24] MEDS: buPROPion HCL XL (24 HR) 150 MG TABCR PO (09:57)
[2019-10-24] MEDS: FUROSEMIDE 40 MG TABLET PO (09:57)
[2019-10-24] MEDS: BUDESONIDE/FORMOTEROL (*SP) 160-4.5 MCG 6 GM INH 2 PUFF INHALATION ×2 (09:57→21:30)
[2019-10-24] MEDS: ATORVASTATIN 10 MG TABLET 20 MG PO (09:57)
[2019-10-24] MEDS: FAMOTIDINE 20 MG TABLET PO ×2 (09:57→21:30)
[2019-10-24 09:58] VITALS: PULSE 68
[2019-10-24] MEDS: CITALOPRAM HYDROBROMIDE 20 MG TABLET 40 MG PO (09:58)
[2019-10-24] MEDS: metFORMIN HCL 500 MG TABLET PO ×2 (09:58→17:32)
[2019-10-24] MEDS: ASPIRIN 325 MG ENTERIC TABLET PO (09:58)
[2019-10-24] MEDS: METOPROLOL TARTRATE 50 MG TAB PO (09:58)
[2019-10-24] MEDS: DOCUSATE SODIUM 100 MG CAPSULE PO (09:58)
[2019-10-24 12:01] LABS: Glucose Point of Care 167 (65-105)
[2019-10-24 16:00] VITALS: BP 116/77; PULSE 95; RESP 18; TEMP 36.6; O2SAT 97
[2019-10-24 17:01] LABS: Glucose Point of Care 155 (65-105)
[2019-10-24 22:41] LABS: Glucose Point of Care 159 (65-105)
[2019-10-25] VITALS: BP 124/73; PULSE 63; RESP 16; TEMP 36.4; O2SAT 99
[2019-10-25] MEDS: ACETAMINOPHEN 500 MG TABLET 1000 MG PO ×4 (04:20→21:23)
[2019-10-25 07:50] LABS: Glucose Point of Care 152 (65-105)
[2019-10-25 08:00] VITALS: BP 129/80; PULSE 87; RESP 18; TEMP 36.2; O2SAT 97
[2019-10-25] MEDS: buPROPion HCL XL (24 HR) 150 MG TABCR PO (09:11)
[2019-10-25] MEDS: ASPIRIN 325 MG ENTERIC TABLET PO (09:11)
[2019-10-25] MEDS: CITALOPRAM HYDROBROMIDE 20 MG TABLET 40 MG PO (09:12)
[2019-10-25] MEDS: FUROSEMIDE 40 MG TABLET PO (09:12)
[2019-10-25] MEDS: ATORVASTATIN 10 MG TABLET 20 MG PO (09:13)
[2019-10-25] MEDS: metFORMIN HCL 500 MG TABLET PO ×2 (09:13→17:05)
[2019-10-25 09:14] VITALS: PULSE 88
[2019-10-25] MEDS: BUDESONIDE/FORMOTEROL (*SP) 160-4.5 MCG 6 GM INH 2 PUFF INHALATION ×2 (09:14→21:23)
[2019-10-25] MEDS: METOPROLOL TARTRATE 50 MG TAB PO (09:14)
[2019-10-25] MEDS: DOCUSATE SODIUM 100 MG CAPSULE PO (09:14)
[2019-10-25] MEDS: FAMOTIDINE 20 MG TABLET PO ×2 (09:28→21:23)
[2019-10-25 12:02] LABS: Glucose Point of Care 154 (65-105)
--- NOTE | 2019-10-25 13:36 | PC.NURSE ---
Up in [place] with physical therapy, tolerating well, moves slowly,
[2019-10-25 15:26] VITALS: BP 130/75; PULSE 87; RESP 18; TEMP 36.6; O2SAT 95
--- NOTE | 2019-10-25 15:27 | PC.NURSE ---
Chair to bed, gait belt used, moves slowly with walker, assisted to get legs in to bed
[2019-10-25 16:44] LABS: Glucose Point of Care 124 (65-105)
--- NOTE | 2019-10-25 18:45 | PC.NURSE ---
Assisted to stand using gait belt, walker used and returned to bed, assisted to get back in to bed unable to get legs up on own
[2019-10-25 21:35] LABS: Glucose Point of Care 132 (65-105)
[2019-10-26] VITALS: BP 122/71; PULSE 86; RESP 20; TEMP 36.8; O2SAT 96
[2019-10-26] MEDS: ACETAMINOPHEN 500 MG TABLET 1000 MG PO ×4 (03:46→20:59)
[2019-10-26 05:51] LABS: Hematocrit 37.8 % (37.0-46.0); Hemoglobin 12.3 g/dL (12.4-15.3); Mean Corpuscular HGB Conc 32.5 g/dL (32.0-36.0); Mean Corpuscular Hemoglobin 31.3 pg (27.0-31.0); Mean Corpuscular Volume 96.2 fL (78.0-102.0); Mean Platelet Volume 9.1 fl (8.7-11.0); Platelet Count Result 220 K/mm3 (150-420); Red Blood Count 3.93 M/mm3 (4.70-6.10); Red Cell Distribution Width 14.3 % (11.6-14.4); White Blood Count 8.7 K/mm3 (4.8-10.8)
[2019-10-26 06:22] LABS: Alanine Aminotransferase 48 U/L (16-63); Albumin Level 2.7 g/dL (3.4-5.0); Alkaline Phosphatase 99 U/L (46-116); Anion Gap 13.9 mmol/L (7-16); Aspartate Amino Transferase 30 U/L (15-37); Bilirubin,Total 0.3 mg/dL (0.00-1.00); Blood Urea Nitrogen 26 mg/dL (7-18); Calcium 8.3 mg/dL (8.5-10.1); Carbon Dioxide 29 mmol/L (21-32); Chloride 102 mmol/L (98-108); Estimated CRCL calculation 31 ml/min; Estimated Glomerular Filt Rate 36; Glucose 155 mg/dL (70-99); Magnesium 2.1 mg/dL (1.8-2.4); Osmolality Calculated 297 mOsm/kg (285-295); Sodium 140 mmol/L (136-145); Total Protein 5.6 g/dL (6.4-8.2)
[2019-10-26 06:25] LABS: Potassium 4.9 mmol/L (3.5-5.1)
[2019-10-26 06:26] LABS: Band Neutrophils Percent 1 % (0-6); Basophils Percent Manual 0 % (0-1); Eosinophils Absolute Manual 0.08 K/mm3 (0.02-0.5); Eosinophils Percent Manual 1 % (1-6); Lymphocytes Absolute Manual 1.13 K/mm3 (1.1-4.5); Lymphocytes Percent Manual 13 % (18-44); Monocytes Absolute Manual 0.69 K/mm3 (0.1-0.90); Monocytes Percent Manual 8 % (3-9); Myelocytes Percent 2 %; Neutrophils Absolute Manual 6.61 K/mm3 (1.3-6.7); Neutrophils Percent Manual 75 % (46-73); Platelet Estimate Adequate (Adequate); Total Cells Counted 100
[2019-10-26 06:32] LABS: BNP < 5 pg/mL (0-100)
[2019-10-26 07:35] VITALS: BP 112/72; PULSE 78; RESP 18; TEMP 35.8; O2SAT 97
[2019-10-26 07:37] LABS: Glucose Point of Care 165 (65-105)
[2019-10-26] MEDS: BUDESONIDE/FORMOTEROL (*SP) 160-4.5 MCG 6 GM INH 2 PUFF INHALATION ×2 (08:58→21:00)
[2019-10-26 08:59] VITALS: PULSE 80
[2019-10-26] MEDS: FUROSEMIDE 40 MG TABLET PO (08:59)
[2019-10-26] MEDS: METOPROLOL TARTRATE 50 MG TAB PO (08:59)
[2019-10-26] MEDS: FAMOTIDINE 20 MG TABLET PO ×2 (08:59→20:59)
[2019-10-26] MEDS: ATORVASTATIN 10 MG TABLET 20 MG PO (09:00)
[2019-10-26] MEDS: ASPIRIN 325 MG ENTERIC TABLET PO (09:02)
[2019-10-26] MEDS: metFORMIN HCL 500 MG TABLET PO ×2 (09:02→16:54)
[2019-10-26] MEDS: CITALOPRAM HYDROBROMIDE 20 MG TABLET 40 MG PO (09:02)
[2019-10-26] MEDS: DOCUSATE SODIUM 100 MG CAPSULE PO (09:02)
[2019-10-26] MEDS: LIDOCAINE 5% PATCH 3 PATCH TRANSDERM (09:03)
[2019-10-26] MEDS: buPROPion HCL XL (24 HR) 150 MG TABCR PO (09:03)
[2019-10-26] MEDS: ASCORBIC ACID 500 MG TABLET PO (09:44)
[2019-10-26] MEDS: FERROUS SULFATE 324 MG TABLET PO (09:44)
--- NOTE | 2019-10-26 10:13 | PC.NURSE ---
Muscle cramping worse today, ice pack to hip, in bed with leg on pillow
--- NOTE | 2019-10-26 11:00 | PC.NURSE ---
here for care conference
[2019-10-26 12:09] LABS: Glucose Point of Care 189 (65-105)
[2019-10-26 15:47] VITALS: BP 134/79; PULSE 95; RESP 20; TEMP 36.6; O2SAT 95
--- NOTE | 2019-10-26 15:50 | PC.NURSE ---
Returned to bed per therapy, tolerated well, moving better today
[2019-10-26 17:57] LABS: Glucose Point of Care 137 (65-105)
--- NOTE | 2019-10-26 18:13 | PC.NURSE ---
in bed no distress, no pain, personal items in reach
[2019-10-26 21:11] LABS: Glucose Point of Care 170 (65-105)
[2019-10-27] VITALS: BP 115/75; PULSE 82; RESP 20; TEMP 36.4; O2SAT 93
[2019-10-27] MEDS: ACETAMINOPHEN 500 MG TABLET 1000 MG PO ×4 (03:49→21:02)
[2019-10-27 08:00] VITALS: BP 118/67; PULSE 85; RESP 18; TEMP 35.9; O2SAT 93
[2019-10-27 08:06] LABS: Glucose Point of Care 162 (65-105)
[2019-10-27] MEDS: LIDOCAINE 5% PATCH 3 PATCH TRANSDERM (09:57)
[2019-10-27] MEDS: buPROPion HCL XL (24 HR) 150 MG TABCR PO (09:58)
[2019-10-27] MEDS: BUDESONIDE/FORMOTEROL (*SP) 160-4.5 MCG 6 GM INH 2 PUFF INHALATION ×2 (09:58→21:01)
[2019-10-27 09:59] VITALS: PULSE 68
[2019-10-27] MEDS: FUROSEMIDE 40 MG TABLET PO (09:59)
[2019-10-27] MEDS: DOCUSATE SODIUM 100 MG CAPSULE PO (09:59)
[2019-10-27] MEDS: FAMOTIDINE 20 MG TABLET PO ×2 (09:59→21:02)
[2019-10-27] MEDS: FERROUS SULFATE 324 MG TABLET PO (09:59)
[2019-10-27] MEDS: METOPROLOL TARTRATE 50 MG TAB PO (09:59)
[2019-10-27] MEDS: metFORMIN HCL 500 MG TABLET PO (09:59)
[2019-10-27] MEDS: ASCORBIC ACID 500 MG TABLET PO (09:59)
[2019-10-27] MEDS: CITALOPRAM HYDROBROMIDE 20 MG TABLET 40 MG PO (09:59)
[2019-10-27] MEDS: ATORVASTATIN 10 MG TABLET 20 MG PO (09:59)
[2019-10-27] MEDS: ASPIRIN 325 MG ENTERIC TABLET PO (09:59)
[2019-10-27 11:33] LABS: Glucose Point of Care 219 (65-105)
--- NOTE | 2019-10-27 11:45 | P.PN_ITS ---
Progress Note: A&P Assessment and Plan (1) Status post right hip replacement: Code(s): Z96.641 - Presence of right artificial hip joint Status: Acute Assessment and Plan: * October 14 fall with fracture of right hip admitted to [facility] after evaluation initially done at [facility] * October 16 right hip replacement by Dr. Gulshan Braxton * October 19 transferred to [place] for swing rehab therapy * PT and OT evaluate and treat * monitor skin and incision daily to promote good healing * keep glucose levels under 180 for improved healing and low risk of infection * follow-up with orthopedic surgeon after discharge (2) Type 2 diabetes mellitus: Qualifiers: Diabetes mellitus residential insulin use: with residential use Diabetes mellitus complication status: without complication Qualified Code(s): E11.9 - Type 2 diabetes mellitus without complications; Z79.4 - terminal makeup operator (current) use of insulin Code(s): E11.9 - Type 2 diabetes mellitus without complications Status: Chronic Assessment and Plan: * Controlled * on September 28, his hemoglobin A1c was 7.7 * continue metformin 500 mg p.o. b.i.d. 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, unspecified with opioid-induced psychotic disorder, unspecified Status: Acute Assessment and Plan: * resolved * October 16, found to have altered mental status, lethargy, disorientation, confusion, dizziness, nausea vomiting, garbled and delayed speech * avoid Percocet due to adverse reaction * October 16 CT scan of the head was normal * patient removed from narcotics and orthopedic surgeon advised no further narcotics * patient's poor renal function may have also contributed to poor clearance of narcotic pain medicine Review of Systems Review of Systems: All systems reviewed & are unremarkable except as noted in HPI and below Constitutional: Constitutional: Reports as per HPI, Denies excessive sweating, Denies headache(s), Denies increased appetite, Denies snoring, Reports weakness and Denies weight gain Eyes: Eyes: Reports as per HPI, Denies exophthalmos, Denies diplopia, Denies floaters and Denies loss of peripheral vision ENT: Reports as per HPI, Reports Normal hearing present, Denies facial pain, Denies headache(s), Denies epistaxis, Denies odynophagia and Denies tinnitus Cardiovascular: Cardiovascular: Reports as per HPI, Denies chest pain, Denies pedal edema, Denies leg edema, Denies dyspnea and Denies dyspnea on exertion Respiratory: Respiratory: Reports as per HPI, Denies cough, Denies dyspnea, Denies dyspnea on exertion and Denies snoring Gastrointestinal: Gastrointestinal: Reports as per HPI, Denies abdominal pain, Denies constipation, Denies diarrhea, Denies nausea, Denies odynophagia and Denies vomiting Genitourinary: Genitourinary: Reports as per HPI Musculoskeletal: Musculoskeletal: Reports as per HPI, Reports abnormal gait and Reports myalgias Integumentary/Breasts: Skin/Breast: Reports as per HPI and Reports wounds ( right hip incision with occlusive OR dressing in place, clean and dry) Neurologic: Reports as pe
--- NOTE | 2019-10-27 11:45 | WPDPN ---
Progress Note: A&P Assessment and Plan (1) Status post right hip replacement: Code(s): Z96.641 - Presence of right artificial hip joint Status: Acute Assessment and Plan: October 14 fall with fracture of right hip admitted to [facility] after evaluation initially done at [facility] October 16 right hip replacement by Dr. Gulshan Braxton October 19 transferred to [place] for swing rehab therapy PT and OT evaluate and treat monitor skin and incision daily to promote good healing keep glucose levels under 180 for improved healing and low risk of infection follow-up with orthopedic surgeon after discharge (2) Type 2 diabetes mellitus: Qualifiers: Diabetes mellitus halfway insulin use: with halfway use Diabetes mellitus complication status: without complication Qualified Code(s): E11.9 - Type 2 diabetes mellitus without complications; Z79.4 - long-term (current) use of insulin Code(s): E11.9 - Type 2 diabetes mellitus without complications Status: Chronic Assessment and Plan: Controlled on September 28, his hemoglobin A1c was 7.7 continue metformin 500 mg p.o. b.i.d. 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, unspecified with opioid-induced psychotic disorder, unspecified Status: Acute Assessment and Plan: resolved October 16, found to have altered mental status, lethargy, disorientation, confusion, dizziness, nausea vomiting, garbled and delayed speech avoid Percocet due to adverse reaction October 16 CT scan of the head was normal patient removed from narcotics and orthopedic surgeon advised no further narcotics patient's poor renal function may have also contributed to poor clearance of narcotic pain medicine Review of Systems Review of Systems: All systems reviewed & are unremarkable except as noted in HPI and below Constitutional: Constitutional: Reports as per HPI, Denies excessive sweating, Denies headache(s), Denies increased appetite, Denies snoring, Reports weakness and Denies weight gain Eyes: Eyes: Reports as per HPI, Denies exophthalmos, Denies diplopia, Denies floaters and Denies loss of peripheral vision ENT: Reports as per HPI, Reports Normal hearing present, Denies facial pain, Denies headache(s), Denies epistaxis, Denies odynophagia and Denies tinnitus Cardiovascular: Cardiovascular: Reports as per HPI, Denies chest pain, Denies pedal edema, Denies leg edema, Denies dyspnea and Denies dyspnea on exertion Respiratory: Respiratory: Reports as per HPI, Denies cough, Denies dyspnea, Denies dyspnea on exertion and Denies snoring Gastrointestinal: Gastrointestinal: Reports as per HPI, Denies abdominal pain, Denies constipation, Denies diarrhea, Denies nausea, Denies odynophagia and Denies vomiting Genitourinary: Genitourinary: Reports as per HPI Musculoskeletal: Musculoskeletal: Reports as per HPI, Reports abnormal gait and Reports myalgias Integumentary/Breasts: Skin/Breast: Reports as per HPI and Reports wounds ( right hip incision with occlusive OR dressing in place, clean and dry) Neurologic: Reports as per HPI, Reports Normal hearing present, Reports abnormal gait, Denies confusion, Denies headache(s) and Reports weakness Psychiatric: Psychiatric: Reports as per HPI, Denies anxiety and Denies confusion Endocrine: Endocrine: Denies excessive sweating Exam Const: General: comfortable, no acute distress, in distress mild and uncomfortable; No confusion Orientation/consciousness: No confusion HENMT: General nose exam: Normal nares
[2019-10-27 16:00] VITALS: BP 132/71; PULSE 88; RESP 16; TEMP 36.6; O2SAT 95
[2019-10-27 17:01] LABS: Glucose Point of Care 115 (65-105)
[2019-10-27 20:21] VITALS: BP 122/72; PULSE 95; RESP 20; TEMP 36; O2SAT 95
[2019-10-27 21:07] LABS: Glucose Point of Care 205 (65-105)
--- NOTE | 2019-10-27 23:40 | PC.NURSE ---
Resting with HOB elevated and right leg on pillow, no distress ntoed
--- NOTE | 2019-10-28 00:53 | PM.EVENT ---
Event Note Event Note Event Note: For 10/27/2019: I examined the patient and reviewed the chart. I discussed the patient's care with Samira Cervantes APN and agree with her assessment and plan.
--- NOTE | 2019-10-28 01:47 | PC.NURSE ---
Resting in bed, using urinal as needed, call light in reach
[2019-10-28] MEDS: ACETAMINOPHEN 500 MG TABLET 1000 MG PO ×4 (04:41→21:06)
--- NOTE | 2019-10-28 04:47 | PC.NURSE ---
REsting well, denies needs, side rails and call light in reach of patient
--- NOTE | 2019-10-28 07:26 | PC.NURSE ---
PT working with patient.
[2019-10-28 07:51] LABS: Glucose Point of Care 175 (65-105)
[2019-10-28 08:00] VITALS: BP 126/77; PULSE 89; RESP 20; TEMP 36.4; O2SAT 94
--- NOTE | 2019-10-28 08:45 | PC.NURSE ---
OT working with patient.
[2019-10-28 09:10] VITALS: PULSE 72
[2019-10-28] MEDS: FUROSEMIDE 40 MG TABLET PO (09:10)
[2019-10-28] MEDS: ASPIRIN 325 MG ENTERIC TABLET PO (09:10)
[2019-10-28] MEDS: METOPROLOL TARTRATE 50 MG TAB PO (09:10)
[2019-10-28] MEDS: ATORVASTATIN 10 MG TABLET 20 MG PO (09:10)
[2019-10-28] MEDS: CITALOPRAM HYDROBROMIDE 20 MG TABLET 40 MG PO (09:11)
[2019-10-28] MEDS: DOCUSATE SODIUM 100 MG CAPSULE PO (09:11)
[2019-10-28] MEDS: FAMOTIDINE 20 MG TABLET PO ×2 (09:11→21:07)
[2019-10-28] MEDS: ASCORBIC ACID 500 MG TABLET PO (09:11)
[2019-10-28] MEDS: BUDESONIDE/FORMOTEROL (*SP) 160-4.5 MCG 6 GM INH 2 PUFF INHALATION ×2 (09:12→21:07)
[2019-10-28] MEDS: LIDOCAINE 5% PATCH 3 PATCH TRANSDERM (09:12)
[2019-10-28] MEDS: buPROPion HCL XL (24 HR) 150 MG TABCR PO (09:12)
[2019-10-28] MEDS: FERROUS SULFATE 324 MG TABLET PO (09:12)
--- NOTE | 2019-10-28 14:30 | PCDIET ---
Pt resting per bed. Has no complaints. present. Call sparks in reach. Reminded to call with needs.
--- NOTE | 2019-10-28 15:35 | PC.NURSE ---
Physical Therapy working with patient.
[2019-10-28 15:46] VITALS: BP 110/81; PULSE 85; RESP 16; TEMP 36.2; O2SAT 95
[2019-10-28 17:27] LABS: Glucose Point of Care 142 (65-105)
[2019-10-28 21:19] LABS: Glucose Point of Care 272 (65-105)
[2019-10-28 23:59] VITALS: BP 132/54; PULSE 80; RESP 20; TEMP 36.8; O2SAT 95
--- NOTE | 2019-10-29 00:04 | PC.NURSE ---
Pt resting in bed and no signs of discomfort noted. 300 ml of clear, jorge urine emptied from the urinal.
--- NOTE | 2019-10-29 01:24 | PC.NURSE ---
Pt asleep and no signs of discomfort noted.
--- NOTE | 2019-10-29 02:27 | PC.NURSE ---
Pt asleep and no signs of discomfort noted. 275 ml of clear, jorge urine emptied from the urinal.
[2019-10-29] MEDS: ACETAMINOPHEN 500 MG TABLET 1000 MG PO ×4 (04:33→21:13)
[2019-10-29 07:21] LABS: Glucose Point of Care 210 (65-105)
[2019-10-29 07:30] VITALS: BP 137/49; PULSE 84; RESP 18; TEMP 36.1; O2SAT 95
--- NOTE | 2019-10-29 07:59 | PC.NURSE ---
Patient got own leg to edge of bed using good leg, needed assist to get in to sitting position, no assist needed to stand up from bed, used walker and moving right and left leg well this am, ambulated to chair, tolerated well, call light in reach
[2019-10-29] MEDS: BUDESONIDE/FORMOTEROL (*SP) 160-4.5 MCG 6 GM INH 2 PUFF INHALATION ×2 (08:57→21:13)
[2019-10-29] MEDS: ASCORBIC ACID 500 MG TABLET PO (08:58)
[2019-10-29] MEDS: FUROSEMIDE 40 MG TABLET PO (08:58)
[2019-10-29] MEDS: ASPIRIN 325 MG ENTERIC TABLET PO (08:58)
[2019-10-29] MEDS: DOCUSATE SODIUM 100 MG CAPSULE PO (08:58)
[2019-10-29] MEDS: FAMOTIDINE 20 MG TABLET PO ×2 (08:58→21:13)
[2019-10-29 08:59] VITALS: PULSE 84
[2019-10-29] MEDS: METOPROLOL TARTRATE 50 MG TAB PO (08:59)
[2019-10-29] MEDS: CITALOPRAM HYDROBROMIDE 20 MG TABLET 40 MG PO (08:59)
[2019-10-29] MEDS: FERROUS SULFATE 324 MG TABLET PO (09:00)
[2019-10-29] MEDS: ATORVASTATIN 10 MG TABLET 20 MG PO (09:00)
[2019-10-29] MEDS: LIDOCAINE 5% PATCH 3 PATCH TRANSDERM (09:01)
[2019-10-29] MEDS: buPROPion HCL XL (24 HR) 150 MG TABCR PO (09:01)
--- NOTE | 2019-10-29 11:45 | PC.NURSE ---
Patient got self out from left side of bed, stood without assistance, gait belt applied and SBA while walked from bed to chair, tolerated well
[2019-10-29 11:48] LABS: Glucose Point of Care 238 (65-105)
[2019-10-29 16:00] VITALS: BP 118/67; PULSE 88; RESP 18; TEMP 36.4; O2SAT 95
[2019-10-29 16:38] LABS: Glucose Point of Care 189 (65-105)
--- NOTE | 2019-10-29 18:32 | PC.NURSE ---
Gait belt applied, patient able to stand up freely with no assist from chair, ambulated with walker to left side of bed, no assist provided, did need minimal help to get surgical (right) leg in to bed, once in bed able to position self in center unassisted, tolerated well, side rails up and call light in reach of patient
[2019-10-29 21:25] LABS: Glucose Point of Care 286 (65-105)
[2019-10-30] VITALS: BP 121/72; PULSE 80; RESP 20; TEMP 35.6; O2SAT 96
[2019-10-30] MEDS: ACETAMINOPHEN 500 MG TABLET 1000 MG PO ×4 (03:58→21:11)
[2019-10-30 07:20] VITALS: BP 114/73; PULSE 76; RESP 18; TEMP 36.5; O2SAT 95
[2019-10-30 07:22] LABS: Glucose Point of Care 232 (65-105)
--- NOTE | 2019-10-30 07:57 | PC.NURSE ---
Patient got himself to edge of bed and to sitting position, without assistance this am, got himself to stand ing position as well, no assistance given by staff except to apply gait belt for SBA, to chair for breakfast, all personal items in reach of patient
[2019-10-30] MEDS: BUDESONIDE/FORMOTEROL (*SP) 160-4.5 MCG 6 GM INH 2 PUFF INHALATION ×2 (08:30→21:10)
[2019-10-30] MEDS: buPROPion HCL XL (24 HR) 150 MG TABCR PO (08:31)
[2019-10-30] MEDS: ASCORBIC ACID 500 MG TABLET PO (08:32)
[2019-10-30] MEDS: ASPIRIN 325 MG ENTERIC TABLET PO (08:32)
[2019-10-30] MEDS: ATORVASTATIN 10 MG TABLET 20 MG PO (08:33)
[2019-10-30] MEDS: FAMOTIDINE 20 MG TABLET PO ×2 (08:33→21:11)
[2019-10-30] MEDS: CITALOPRAM HYDROBROMIDE 20 MG TABLET 40 MG PO (08:33)
[2019-10-30 08:34] VITALS: PULSE 76
[2019-10-30] MEDS: DOCUSATE SODIUM 100 MG CAPSULE PO (08:34)
[2019-10-30] MEDS: METOPROLOL TARTRATE 50 MG TAB PO (08:34)
[2019-10-30] MEDS: FERROUS SULFATE 324 MG TABLET PO (08:35)
[2019-10-30] MEDS: FUROSEMIDE 40 MG TABLET PO (08:35)
[2019-10-30] MEDS: LIDOCAINE 5% PATCH 3 PATCH TRANSDERM (08:35)
--- NOTE | 2019-10-30 09:01 | PC.NURSE ---
Assisted with sponge bath and dressing, no assistance needed to get up from chair or to ambulate from chair to bed, no assistance needed to get surgical leg back in to bed this am, able to get self straight in bed once laying down, tolerated well, no evidence of pain noted
--- NOTE | 2019-10-30 10:16 | PC.NURSE ---
physical therapy here to work with patient
--- NOTE | 2019-10-30 10:45 | PC.NURSE ---
Up from chair to bathroom, SBA only, use of walker, tolerated well, tired after void and to bed, did need minimal assist to get right leg in to bed, able to move leg on own once in bed
[2019-10-30 11:33] LABS: Glucose Point of Care 145 (65-105)
[2019-10-30 15:30] VITALS: BP 131/74; PULSE 85; RESP 18; TEMP 36.4; O2SAT 95
[2019-10-30 16:42] LABS: Glucose Point of Care 238 (65-105)
--- NOTE | 2019-10-30 18:15 | PC.NURSE ---
Up from chair to bathroom, then from bathroom to bed, tolerated well, no assistance needed to get in to bed, moved himself well, gait slow but steady with use of walker
[2019-10-30 21:24] LABS: Glucose Point of Care 184 (65-105)
[2019-10-30 23:29] VITALS: BP 114/80; PULSE 80; RESP 20; TEMP 36.3; O2SAT 96
[2019-10-31] MEDS: ACETAMINOPHEN 500 MG TABLET 1000 MG PO ×4 (03:57→21:21)
[2019-10-31 07:41] VITALS: BP 118/82; PULSE 76; RESP 16; TEMP 36.4; O2SAT 98
[2019-10-31 07:47] LABS: Glucose Point of Care 174 (65-105)
[2019-10-31 09:17] VITALS: PULSE 76
[2019-10-31] MEDS: METOPROLOL TARTRATE 50 MG TAB PO (09:17)
[2019-10-31] MEDS: ASCORBIC ACID 500 MG TABLET PO (09:18)
[2019-10-31] MEDS: FUROSEMIDE 40 MG TABLET PO (09:18)
[2019-10-31] MEDS: FAMOTIDINE 20 MG TABLET PO ×2 (09:18→21:21)
[2019-10-31] MEDS: buPROPion HCL XL (24 HR) 150 MG TABCR PO (09:18)
[2019-10-31] MEDS: ASPIRIN 325 MG ENTERIC TABLET PO (09:18)
[2019-10-31] MEDS: ATORVASTATIN 10 MG TABLET 20 MG PO (09:18)
[2019-10-31] MEDS: DOCUSATE SODIUM 100 MG CAPSULE PO (09:18)
[2019-10-31] MEDS: FERROUS SULFATE 324 MG TABLET PO (09:18)
[2019-10-31] MEDS: CITALOPRAM HYDROBROMIDE 20 MG TABLET 40 MG PO (09:18)
[2019-10-31] MEDS: BUDESONIDE/FORMOTEROL (*SP) 160-4.5 MCG 6 GM INH 2 PUFF INHALATION ×2 (09:19→21:20)
[2019-10-31 11:31] LABS: Glucose Point of Care 281 (65-105)
[2019-10-31 16:00] VITALS: BP 115/84; PULSE 83; RESP 16; TEMP 36.6; O2SAT 95
[2019-10-31 16:23] LABS: Glucose Point of Care 128 (65-105)
[2019-10-31 21:50] LABS: Glucose Point of Care 198 (65-105)
[2019-11-01] VITALS: BP 121/77; PULSE 80; RESP 16; TEMP 36.3; O2SAT 95
[2019-11-01] MEDS: ACETAMINOPHEN 500 MG TABLET 1000 MG PO ×4 (04:13→21:36)
[2019-11-01 07:36] LABS: Glucose Point of Care 173 (65-105)
[2019-11-01 07:48] VITALS: BP 132/73; PULSE 77; RESP 18; TEMP 36.2; O2SAT 94
[2019-11-01] MEDS: ASCORBIC ACID 500 MG TABLET PO (09:15)
[2019-11-01] MEDS: FAMOTIDINE 20 MG TABLET PO ×2 (09:15→21:35)
[2019-11-01] MEDS: LIDOCAINE 5% PATCH 3 PATCH TRANSDERM (09:15)
[2019-11-01] MEDS: FUROSEMIDE 40 MG TABLET PO (09:15)
[2019-11-01 09:16] VITALS: PULSE 77
[2019-11-01] MEDS: METOPROLOL TARTRATE 50 MG TAB PO (09:16)
[2019-11-01] MEDS: buPROPion HCL XL (24 HR) 150 MG TABCR PO (09:16)
[2019-11-01] MEDS: DOCUSATE SODIUM 100 MG CAPSULE PO (09:16)
[2019-11-01] MEDS: CITALOPRAM HYDROBROMIDE 20 MG TABLET 40 MG PO (09:16)
[2019-11-01] MEDS: ASPIRIN 325 MG ENTERIC TABLET PO (09:16)
[2019-11-01] MEDS: FERROUS SULFATE 324 MG TABLET PO (09:16)
[2019-11-01] MEDS: ATORVASTATIN 10 MG TABLET 20 MG PO (09:16)
[2019-11-01] MEDS: BUDESONIDE/FORMOTEROL (*SP) 160-4.5 MCG 6 GM INH 2 PUFF INHALATION ×2 (09:17→21:35)
[2019-11-01 11:22] LABS: Glucose Point of Care 293 (65-105)
[2019-11-01 16:00] VITALS: BP 120/80; PULSE 83; RESP 16; TEMP 36.2; O2SAT 94
[2019-11-01 16:34] LABS: Glucose Point of Care 139 (65-105)
[2019-11-01 19:45] VITALS: BP 120/66; PULSE 88; RESP 16; TEMP 36.7; O2SAT 96
[2019-11-01 21:45] LABS: Glucose Point of Care 236 (65-105)
--- NOTE | 2019-11-01 22:55 | PC.NURSE ---
Sleeping, no signs of pain or distress.
[2019-11-01 23:05] VITALS: BP 119/74; PULSE 84; RESP 16; TEMP 36.4; O2SAT 97
--- NOTE | 2019-11-02 02:34 | PC.NURSE ---
Sleeping, no signs of pain, discomfort or distress.
[2019-11-02] MEDS: ACETAMINOPHEN 500 MG TABLET 1000 MG PO ×2 (04:36→09:00)
--- NOTE | 2019-11-02 05:10 | PC.NURSE ---
Lab here and blood drawn.
[2019-11-02 05:34] LABS: Basophils Absolute Auto 0.04 K/mm3 (0.00-0.10); Basophils Percent Auto 0.5 % (0.0-1.0); Eosinophils Absolute Auto 0.33 K/mm3 (0.02-0.50); Eosinophils Percent Auto 4.2 % (1.0-6.0); Hematocrit 37.2 % (37.0-46.0); Hemoglobin 12.1 g/dL (12.4-15.3); Immature Granulocyte Absolute 0.07 K/mm3 (0.00-0.00); Immature Granulocyte Percent A 0.9 % (0.0-0.0); Lymphocytes Absolute Auto 1.42 K/mm3 (1.10-4.50); Lymphocytes Percent Auto 18.2 % (18.0-42.0); Mean Corpuscular HGB Conc 32.5 g/dL (32.0-36.0); Mean Corpuscular Hemoglobin 30.9 pg (27.0-31.0); Mean Corpuscular Volume 94.9 fL (78.0-102.0); Mean Platelet Volume 8.2 fl (8.7-11.0); Monocytes Absolute Auto 0.83 K/mm3 (0.10-0.90); Monocytes Percent Auto 10.6 % (2.0-11.0); Neutrophils Absolute Auto 5.1 K/mm3 (1.7-7.2); Neutrophils Percent Auto 65.6 % (50.0-70.0); Platelet Count Result 295 K/mm3 (150-420); Red Blood Count 3.92 M/mm3 (4.70-6.10); Red Cell Distribution Width 13.8 % (11.6-14.4); White Blood Count 7.8 K/mm3 (4.8-10.8)
[2019-11-02 05:58] LABS: Alanine Aminotransferase 23 U/L (16-63); Albumin Level 2.7 g/dL (3.4-5.0); Alkaline Phosphatase 126 U/L (46-116); Anion Gap 9.1 mmol/L (7-16); Aspartate Amino Transferase 15 U/L (15-37); Bilirubin,Total 0.3 mg/dL (0.00-1.00); Blood Urea Nitrogen 28 mg/dL (7-18); Calcium 8.2 mg/dL (8.5-10.1); Carbon Dioxide 30 mmol/L (21-32); Chloride 103 mmol/L (98-108); Estimated CRCL calculation 29 ml/min; Estimated Glomerular Filt Rate 33; Glucose 203 mg/dL (70-99); Osmolality Calculated 297 mOsm/kg (285-295); Potassium 4.1 mmol/L (3.5-5.1); Sodium 138 mmol/L (136-145); Total Protein 6.2 g/dL (6.4-8.2)
--- NOTE | 2019-11-02 06:41 | PC.NURSE ---
States slept well; denies pain and discomfort. Given fresh ice water.
[2019-11-02 07:41] VITALS: BP 134/84; PULSE 87; RESP 16; TEMP 36.6; O2SAT 98
[2019-11-02 07:57] LABS: Glucose Point of Care 168 (65-105)
[2019-11-02] MEDS: BUDESONIDE/FORMOTEROL (*SP) 160-4.5 MCG 6 GM INH 2 PUFF INHALATION (08:57)
[2019-11-02] MEDS: LIDOCAINE 5% PATCH 3 PATCH TRANSDERM (08:57)
[2019-11-02] MEDS: buPROPion HCL XL (24 HR) 150 MG TABCR PO (08:57)
[2019-11-02 08:58] VITALS: PULSE 82
[2019-11-02] MEDS: FUROSEMIDE 40 MG TABLET PO (08:58)
[2019-11-02] MEDS: ASPIRIN 325 MG ENTERIC TABLET PO (08:58)
[2019-11-02] MEDS: DOCUSATE SODIUM 100 MG CAPSULE PO (08:58)
[2019-11-02] MEDS: METOPROLOL TARTRATE 50 MG TAB PO (08:58)
[2019-11-02] MEDS: ATORVASTATIN 10 MG TABLET 20 MG PO (08:58)
[2019-11-02] MEDS: ASCORBIC ACID 500 MG TABLET PO (08:58)
[2019-11-02] MEDS: FAMOTIDINE 20 MG TABLET PO (08:58)
[2019-11-02] MEDS: CITALOPRAM HYDROBROMIDE 20 MG TABLET 40 MG PO (08:59)
[2019-11-02] MEDS: FERROUS SULFATE 324 MG TABLET PO (08:59)
[2019-11-02 11:37] LABS: Glucose Point of Care 208 (65-105)
--- NOTE | 2019-11-02 12:58 | P.DS_ITS ---
DS: Admitting Diagnosis Admitting Diagnosis Admitting Diagnosis: Presence of right artificial hip joint <RBYCE Dash - Last Filed: 11/02/19 13:03> DS: Discharge Diagnosis Discharge Diagnosis (1) Status post right hip replacement: Code(s): Z96.641 - Presence of right artificial hip joint <BRYCE Dash - Last Filed: 11/02/19 13:03> Status: Acute <BRYCE Dash - Last Filed: 11/02/19 13:03> Assessment and Plan: * October 14 fall with fracture of right hip admitted to [facility] after evaluation initially done at [facility] * October 16 right hip replacement by Dr. 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 b.i.d. * ACHS bedside glucose checks * he does not use insulin at home <BRYCE Dash - Last Filed: 11/02/19 13:03> (3) CKD (chronic kidney disease): Code(s): N18.9 - Chronic kidney disease, unspecified <BRYCE Dash - Last Filed: 11/02/19 13:03> Status: Acute <BRYCE Dash - Last Filed: 11/02/19 13:03> Assessment and Plan: * creatinine is currently 2.0 * renal dose medication * contact Luna [employer]ATOR OF EDUCATION, informed her of patient's worsening renal function. Will repeat labs on Thursday before his appointment. Also discontinue metformin she will adjust medications his doctor's visit. 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, unspecified with opioid-induced psychotic disorder, unspecified <BRYCE Dash Cristine Last Filed: 11/02/19 13:03> Status: Acute <BRYCE Dash Cristine Last Filed: 11/02/19 13:03> Assessment and Plan: * resolved * October 16, found to have altered mental status, lethargy, disorientation, confusion, dizziness, nausea vomiting, garbled and delayed speech * avoid Percocet due to adverse reaction * October 16 CT scan of the head was normal * patient removed from narcotics and orthopedic surgeon advised no further narcotics * patient's poor renal function may have also contributed to poor clearance of narcotic pain medicine <BRYCE Dash - Last Filed: 11/02/19 13:03> DS: Summary Time Spent with Patient Time attestation: Total time spent providing and/or coordinating discharge services:60 <BRYCE Dash Cristine Last Filed: 11/02/19 13:03> Exam Const: General: comfortable, no acute distress, in distress mild and uncomfortable; No confusion <BRYCE Dash Last Filed: 11/02/19 13:03> Orientation/consciousness: No confusion
--- NOTE | 2019-11-02 12:58 | PM.DS ---
DS: Admitting Diagnosis Admitting Diagnosis Admitting Diagnosis: Presence of right artificial hip joint <BRYCE Dash - Last Filed: 11/02/19 13:03> DS: Discharge Diagnosis Discharge Diagnosis (1) Status post right hip replacement: Code(s): Z96.641 - Presence of right artificial hip joint <NIDIA DashC - Last Filed: 11/02/19 13:03> Status: Acute <BRYCE Dash - Last Filed: 11/02/19 13:03> Assessment and Plan: October 14 fall with fracture of right hip admitted to [facility] after evaluation initially done at [facility] October 16 right hip replacement by Dr. 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 b.i.d. ACHS bedside glucose checks he does not use insulin at home <BRYCE Dash - Last Filed: 11/02/19 13:03> (3) CKD (chronic kidney disease): Code(s): N18.9 - Chronic kidney disease, unspecified <BRYCE Dash - Last Filed: 11/02/19 13:03> Status: Acute <BRYCE Dash Cristine Last Filed: 11/02/19 13:03> Assessment and Plan: creatinine is currently 2.0 renal dose medication contact Luna [employer]AR[employer], informed her of patient's worsening renal function. Will repeat labs on Thursday before his appointment. Also discontinue metformin she will adjust medications his doctor's visit. 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, unspecified with opioid-induced psychotic disorder, unspecified <BRYCE Dash - Last Filed: 11/02/19 13:03> Status: Acute <BRYCE Dash Cristine Last Filed: 11/02/19 13:03> Assessment and Plan: resolved October 16, found to have altered mental status, lethargy, disorientation, confusion, dizziness, nausea vomiting, garbled and delayed speech avoid Percocet due to adverse reaction October 16 CT scan of the head was normal patient removed from narcotics and orthopedic surgeon advised no further narcotics patient's poor renal function may have also contributed to poor clearance of narcotic pain medicine <BRYCE Dash - Last Filed: 11/02/19 13:03> DS: Summary Time Spent with Patient Time attestation: Total time spent providing and/or coordinating discharge services:60 <BRYCE Dash - Last Filed: 11/02/19 13:03> Exam Const: General: comfortable, no acute distress, in distress mild and uncomfortable; No confusion <BRYCE Dash - Last Filed: 11/02/19 13:03> Orientation/consciousness: No confusion <BRYCE Dash - Last Filed: 11/02/19 13:03> HENMT: General nose exam: Normal nares present and no epistaxis <BRYCE Dash - Last Filed: 11/02/19 13:03> Eyes: General: appearance normal, both eyes and all related structures <BRYCE Dash - Last Filed: 11/02/19 13:03> Pupils: Equal, round and reactive pupils present <Son
[2019-11-03 09:35] LABS: Glucose Point of Care 229 (65-105)
--- NOTE | 2019-11-08 14:32 | PCOTNOTE ---
Patient is discharged from skilled OT services as he has returned home with his spouse. See last treatment note for level of function. MS
== END 2019-11-02 13:05 | disposition home or self-care (01) | DRG 560 ==
PROVIDERS: Nurse Practitioner; Admitting Provider Emergency Medicine; PCP Nurse Practitioner Family; Visit Provider Emergency Medicine
DX: S72.011D Unspecified intracapsular fracture of right femur, subsequent encounter for closed fracture with routine healing (principal); I13.0 Hypertensive heart and chronic kidney disease with heart failure and stage 1 through stage 4 chronic kidney disease, or unspecified chronic kidney disease; Z47.1 Aftercare following joint replacement surgery; I50.9 Heart failure, unspecified; N18.9 Chronic kidney disease, unspecified; E11.22 Type 2 diabetes mellitus with diabetic chronic kidney disease; I25.10 Atherosclerotic heart disease of native coronary artery without angina pectoris; J44.9 Chronic obstructive pulmonary disease, unspecified; N40.0 Benign prostatic hyperplasia without lower urinary tract symptoms; G47.33 Obstructive sleep apnea (adult) (pediatric); H81.09 Meniere's disease, unspecified ear; W19.XXXD Unspecified fall, subsequent encounter; F41.1 Generalized anxiety disorder; Z96.641 Presence of right artificial hip joint; Z95.5 Presence of coronary angioplasty implant and graft
CPT/HCPCS: 36415; 80053; 83735; 83880; 85025; 97110; 97161; 97165; 97530; 97535; A9270; J1815

== ENCOUNTER 2019-11-07 12:33 | Outpatient (CLI) | payer MEDICARE, OTHER, SELFPAY ==
[2019-11-07 13:56] LABS: Alanine Aminotransferase 26 U/L (16-63); Alkaline Phosphatase 150 U/L (46-116); Anion Gap 8 mmol/L (8-16); Aspartate Amino Transferase 17 U/L (15-37); Bilirubin,Total 0.4 mg/dL (0.00-1.00); Blood Urea Nitrogen 23 mg/dL (7-18); Calcium 8.3 mg/dL (8.5-10.1); Carbon Dioxide 27 mmol/L (21-32); Chloride 102 mmol/L (98-108); Estimated Glomerular Filt Rate 35; Glucose 236 mg/dL (70-99); Osmolality Calculated 295 mOsm/kg (285-295); Potassium 5.2 mmol/L (3.5-5.1); Sodium 137 mmol/L (136-145)
== END 2019-11-07 12:34 | disposition home or self-care (01) ==
LOC: CHSLAB 12:35
PROVIDERS: PCP Nurse Practitioner Family; Visit Provider Nurse Practitioner
DX: N18.9 Chronic kidney disease, unspecified (principal)
CPT/HCPCS: 36415; 80053; 97110; 97161

== ENCOUNTER 2019-11-07 14:55 | Outpatient (RCR) | payer MEDICARE, OTHER, SELFPAY ==
--- NOTE | 2019-11-07 16:11 | PTOPEVAL ---
Thank you for referring Davis Hunter to [facility]. Please review, sign, date and return this plan of care TRI. I agree with and certify that the following plan of care is medically necessary. Referring Physician Date Admitting Provider: Attending Provider: Luna Bhagat NP Referring Provider: *PT Outpatient Evaluation Start: 11/07/19 15:08 Freq: Status: Active Protocol: Document 11/07/19 15:08 TRISTON (Rec: 11/07/19 15:36 TRISTON [email or web address]) Therapy Assessment Status Assessment Status Assessment Status Evaluation Outpatient Past Medical History Neurological History Hx Neurological Disorders No Significant History Cardiovascular History Hx Cardiac Catheterization Yes Hx Chest Pain Yes Hx Congestive Heart Failure Yes Hx Coronary Artery Disease Yes Hx Coronary Stent Yes Hx Hypercholesterolemia Yes Hx Hypertension Yes Respiratory History Hx Asthma Yes Hx Chronic Obstructive Pulmonary Disease Yes (COPD) Hx Pneumonia Yes Hx Sleep Apnea Yes Gastrointestinal History Hx Gastrointestinal Disorders No Significant History Genitourinary History Hx Genitourinary Disorders No Significant History Musculoskeletal History Hx Arthritis Yes Hx Fractures Yes: R hip Hx Orthopedic Surgery Yes: R hip, R knee Hematological History Hx Hematological Disorders No Significant History Endocrine History Hx Diabetes Yes HEENT History Hx Cataracts Yes: karis removed Integumentary History Hx Skin Disorders No Significant History Reproductive History Hx Reproductive Disorders No Significant History Psychosocial History Hx Anxiety Yes Hx Depression Yes Pain History History of Any Previous or Ongoing No Significant History Instance of Pain Anesthesia History Hx Anesthesia Reactions No Significant History Evaluation Information Problem Diagnosis weakness Onset 10/15/19 Subjective Information Pt. reports that he fell and Query Text:As Reported By Patient/ suffered a hip fx on 10/15/19. Family He states that he has fallen 4 times in the past year. He was in the hospital till last week participating in rehab. He reports that he is currently using a walker, but was using a cane prior to his fall. He reports that he was
--- NOTE | 2019-12-15 09:09 | PTOPEVAL ---
Thank you for referring Davis Kristen Hunter Jr. to [facility].? The patient is scheduled to be seen for therapy? __2__x/week for 8 visits. Please review, sign, date and return this plan of care TRI. I agree with and certify that the following plan of care is medically necessary. Referring Physician Date Admitting Provider: Attending Provider: Luna Bhagat NP Referring Provider: *PT Outpatient Evaluation Start: 11/07/19 15:08 Freq: Status: Active Protocol: Document 12/09/19 14:00 TRISTON (Rec: 12/15/19 09:08 TRISTON [id number]) Outpatient Past Medical History Neurological History Hx Neurological Disorders No Significant History Cardiovascular History Hx Cardiac Catheterization Yes Hx Chest Pain Yes Hx Congestive Heart Failure Yes Hx Coronary Artery Disease Yes Hx Coronary Stent Yes Hx Hypercholesterolemia Yes Hx Hypertension Yes Respiratory History Hx Asthma Yes Hx Chronic Obstructive Pulmonary Disease Yes (COPD) Hx Pneumonia Yes Hx Sleep Apnea Yes Gastrointestinal History Hx Gastrointestinal Disorders No Significant History Genitourinary History Hx Genitourinary Disorders No Significant History Musculoskeletal History Hx Arthritis Yes Hx Fractures Yes: R hip Hx Orthopedic Surgery Yes: R hip, R knee Hematological History Hx Hematological Disorders No Significant History Endocrine History Hx Diabetes Yes HEENT History Hx Cataracts Yes: karis removed Integumentary History Hx Skin Disorders No Significant History Reproductive History Hx Reproductive Disorders No Significant History Psychosocial History Hx Anxiety Yes Hx Depression Yes Pain History History of Any Previous or Ongoing No Significant History Instance of Pain Anesthesia History Hx Anesthesia Reactions No Significant History Evaluation Information Problem Subjective Information Pt. reports that he is walking Query Text:As Reported By Patient/ and moving much better. He Family states that he still uses his walker outdoors and is still limited by pain. He has not returned to community activities and his goal remains to ambulate with a cane in the community. Pt. request to continue therapy, as he believes he is beginning to show better progress
--- NOTE | 2019-12-29 09:59 | PCPTNOTE ---
The patients contacted the clinic on 12/28/19 by phone stating that the pt. has requested to be discharged and will continue with exercise on this own. Refer to the last daily treatment note for pt. discharge status. Raj Solis, MPT
== END 2019-12-20 10:30 | disposition home or self-care (01) ==
LOC: CHSPT 14:55
PROVIDERS: PCP Nurse Practitioner Family; Visit Provider Nurse Practitioner Family
DX: R53.1 Weakness (principal); S72.001D Fracture of unspecified part of neck of right femur, subsequent encounter for closed fracture with routine healing
CPT/HCPCS: 97110; 97116; 97161; 97530

== ENCOUNTER 2019-12-09 09:47 | Outpatient (CLI) | payer MEDICARE, OTHER, SELFPAY ==
--- NOTE | ~2019-12-09 | US_ITS ---
EXAMINATION: US retroperitoneal comp EXAM DATE: 12/09/2019 10:43 INDICATION: Abnormal kidney functions. TECHNIQUE: Multiple grayscale and Doppler images of the kidneys were obtained (by a technologist who performed the scan) and subsequently reviewed. There is no prior study for comparison. FINDINGS: There is bilateral renal cortical thinning. Right kidney: There is normal contour and echogenicity. It measures 9.1 x 5.1 x 4.5 centimeters. The re is a cyst measuring 2.3 cm. There is no hydronephrosis. Left kidney: There is normal contour and echogenicity. It measures 9.3 x 4.8 x 4.9 centimeters. Anec hoic lesion with increased through transmission, echogenic posterior wall with a cyst measuring 1.5 c m. There is no hydronephrosis. Bladder unremarkable. IMPRESSION: 1. Bilateral renal cortical thinning. 2. Renal lesion consistent with cyst in each kidney. Reviewed, dictated and finalized at location A.
[2019-12-09 10:18] LABS: Basophils Absolute Auto 0.03 K/mm3 (0.00-0.10); Basophils Percent Auto 0.4 % (0.0-1.0); Eosinophils Absolute Auto 0.23 K/mm3 (0.02-0.50); Eosinophils Percent Auto 2.8 % (1.0-6.0); Hematocrit 32.4 % (37.0-46.0); Immature Granulocyte Absolute 0.05 K/mm3 (0.00-0.00); Immature Granulocyte Percent A 0.6 % (0.0-0.0); Lymphocytes Absolute Auto 0.94 K/mm3 (1.10-4.50); Lymphocytes Percent Auto 11.6 % (18.0-42.0); Mean Corpuscular HGB Conc 30.9 g/dL (32.0-36.0); Mean Corpuscular Hemoglobin 28.5 pg (27.0-31.0); Mean Corpuscular Volume 92.3 fL (78.0-102.0); Mean Platelet Volume 8.2 fl (8.7-11.0); Monocytes Absolute Auto 0.72 K/mm3 (0.10-0.90); Monocytes Percent Auto 8.9 % (2.0-11.0); Neutrophils Absolute Auto 6.1 K/mm3 (1.7-7.2); Neutrophils Percent Auto 75.7 % (50.0-70.0); Platelet Count Result 263 K/mm3 (150-420); Red Blood Count 3.51 M/mm3 (4.70-6.10); Red Cell Distribution Width 13.4 % (11.6-14.4); White Blood Count 8.1 K/mm3 (4.8-10.8)
[2019-12-09 10:33] LABS: Add Urine Microscopic? YES; Appearance Urine Clear (Clear); Bilirubin Urine Negative (Negative); Blood Urine Negative (Negative); Color Urine Yellow (Yellow); Glucose Urine UA 1+ (Negative); Ketones Urine Negative (Negative); Leukocyte Esterase Ur Negative LEU/UL (Negative); Nitrate Urine Negative (Negative); Protein Urine Negative (Negative); Urobilinogen Urine 0.2 mg/dL (0.2-1.0)
[2019-12-09 10:47] LABS: RBC Urine 0-2 /hpf (0-2); WBC Urine 0-3 /hpf (0-3)
[2019-12-09 10:48] LABS: Bacteria Urine Trace /hpf; Squamous Epithelial Cell Urine Occasional /hpf (Few)
[2019-12-09 10:49] LABS: Mucus Urine Rare /lpf
[2019-12-09 10:51] LABS: Creatinine Urine 142.34 mg/dL (40-278); Total Protein Urine Random 24.5 mg/dL (0.0-11.9)
[2019-12-09 10:52] LABS: Albumin Level 3.4 g/dL (3.4-5.0); Anion Gap 8 mmol/L (8-16); Blood Urea Nitrogen 24 mg/dL (7-18); Calcium 8.4 mg/dL (8.5-10.1); Carbon Dioxide 28 mmol/L (21-32); Chloride 102 mmol/L (98-108); Estimated Glomerular Filt Rate 35; Glucose 176 mg/dL (70-99); Osmolality Calculated 294 mOsm/kg (285-295); Phosphorus 3.8 mg/dL (2.6-4.7); Potassium 4.4 mmol/L (3.5-5.1); Sodium 138 mmol/L (136-145)
[2019-12-09 11:33] LABS: Erythrocyte Sedimentation Rate 25 mm/hr (0-20)
[2019-12-13 13:13] LABS: Parathyroid Intact 64 pg/mL (14-64)
[2019-12-13 16:21] LABS: Complement Total CH50 >60 U/mL (31-60)
[2019-12-13 18:26] LABS: Vitamin D 25 Hydroxy 33 ng/mL (30-100)
[2019-12-13 20:51] LABS: Kappa\\Lambda Light Chains 0.92 (0.26-1.65); Lambda Light Chain 30.7 mg/L (5.7-26.3)
[2019-12-13 21:19] LABS: Complement C3 130 mg/dL (82-185)
== END 2019-12-09 09:48 | disposition home or self-care (01) ==
PROVIDERS: PCP Nurse Practitioner Family; Visit Provider Internal Medicine Nephrology
DX: R94.4 Abnormal results of kidney function studies (principal); I12.9 Hypertensive chronic kidney disease with stage 1 through stage 4 chronic kidney disease, or unspecified chronic kidney disease; N18.3 Chronic kidney disease, stage 3 (moderate)
CPT/HCPCS: 36415; 76770; 80069; 81001; 82306; 82570; 83883; 83970; 84156; 85025; 85652; 86038; 86160; 86162; 86334; 86335

== ENCOUNTER 2020-02-24 11:05 | Outpatient (CLI) | payer MEDICARE, SELFPAY ==
[2020-02-27 11:07] LABS: Creatinine Urine 130.52 mg/dL (40-278); Total Protein Urine Random 22.9 mg/dL (0.0-11.9)
[2020-02-27 11:19] LABS: Albumin Level 3.4 g/dL (3.4-5.0); Anion Gap 12 mmol/L (8-16); Blood Urea Nitrogen 23 mg/dL (7-18); Calcium 8.8 mg/dL (8.5-10.1); Carbon Dioxide 26 mmol/L (21-32); Chloride 101 mmol/L (98-108); Estimated Glomerular Filt Rate 33; Glucose 365 mg/dL (70-99); Osmolality Calculated 306 mOsm/kg (285-295); Phosphorus 4.2 mg/dL (2.6-4.7); Potassium 4.8 mmol/L (3.5-5.1); Sodium 139 mmol/L (136-145)
== END 2020-02-24 11:06 | disposition home or self-care (01) ==
LOC: CHSLAB 11:07
PROVIDERS: PCP Nurse Practitioner Family; Visit Provider Internal Medicine Nephrology
DX: I12.9 Hypertensive chronic kidney disease with stage 1 through stage 4 chronic kidney disease, or unspecified chronic kidney disease (principal); N18.32 Chronic kidney disease, stage 3b
CPT/HCPCS: 36415; 80069; 82570; 84156

== ENCOUNTER 2020-02-28 13:21 | Outpatient (CLI) | payer MEDICARE, OTHER, SELFPAY | END 2020-02-28 13:22 | disposition home or self-care (01) | PROVIDERS: PCP Nurse Practitioner Family; Visit Provider Specialist | DX: C44.529 Squamous cell carcinoma of skin of other part of trunk (principal) | CPT/HCPCS: 88305 ==

== ENCOUNTER 2020-05-17 14:30 | Outpatient (CLI) | payer MEDICARE, SELFPAY ==
[2020-05-17 15:04] LABS: Creatinine Urine 95.65 mg/dL (40-278); Total Protein Urine Random 31.4 mg/dL (0.0-11.9); Ur Ttl Prot Creatinine Ratio 0.33 mg/mg (0-0.20)
[2020-05-17 15:43] LABS: Albumin Level 3.5 g/dL (3.4-5.0); Anion Gap 13 mmol/L (8-16); Blood Urea Nitrogen 24 mg/dL (7-18); Calcium 8.8 mg/dL (8.5-10.1); Carbon Dioxide 26 mmol/L (21-32); Chloride 102 mmol/L (98-108); Estimated Glomerular Filt Rate 37; Glucose 182 mg/dL (70-99); Osmolality Calculated 301 mOsm/kg (285-295); Phosphorus 4.7 mg/dL (2.6-4.7); Potassium 5.3 mmol/L (3.5-5.1); Sodium 141 mmol/L (136-145)
== END 2020-05-17 14:31 | disposition home or self-care (01) ==
LOC: CHSLAB 14:33
PROVIDERS: PCP Nurse Practitioner Family; Visit Provider Specialist
DX: E87.5 Hyperkalemia (principal); N28.9 Disorder of kidney and ureter, unspecified; N18.32 Chronic kidney disease, stage 3b
CPT/HCPCS: 36415; 80069; 82570; 84156

== ENCOUNTER 2020-05-24 12:21 | Outpatient (CLI) | payer MEDICARE, OTHER, SELFPAY | END 2020-05-24 12:22 | disposition home or self-care (01) | LOC: CHSIMG 12:22 | PROVIDERS: PCP Specialist; Visit Provider Specialist | DX: R53.83 Other fatigue (principal); R60.9 Edema, unspecified | CPT/HCPCS: 93306 ==

== ENCOUNTER 2020-06-13 14:27 | Outpatient (CLI) | payer MEDICARE, SELFPAY ==
[2020-06-13 15:49] LABS: Anion Gap 9 mmol/L (8-16); Blood Urea Nitrogen 25 mg/dL (7-18); Calcium 8.8 mg/dL (8.5-10.1); Carbon Dioxide 30 mmol/L (21-32); Chloride 100 mmol/L (98-108); Estimated Glomerular Filt Rate 33; Glucose 205 mg/dL (70-99); Osmolality Calculated 298 mOsm/kg (285-295); Potassium 5.1 mmol/L (3.5-5.1); Sodium 139 mmol/L (136-145)
== END 2020-06-13 14:28 | disposition home or self-care (01) ==
LOC: CHSLAB 14:30
PROVIDERS: PCP Nurse Practitioner Family; Visit Provider Specialist
DX: R53.83 Other fatigue (principal); R60.9 Edema, unspecified
CPT/HCPCS: 36415; 80048

== ENCOUNTER 2020-10-30 11:39 | Outpatient (CLI) | payer MEDICARE, SELFPAY ==
[2020-10-30 11:58] LABS: Basophils Absolute Auto 0.06 K/mm3 (0.00-0.10); Basophils Percent Auto 0.7 % (0.0-1.0); Eosinophils Absolute Auto 0.15 K/mm3 (0.02-0.50); Eosinophils Percent Auto 1.8 % (1.0-6.0); Hemoglobin 13.1 g/dL (12.4-15.3); Immature Granulocyte Absolute 0.07 K/mm3 (0.00-0.00); Immature Granulocyte Percent A 0.8 % (0.0-0.0); Lymphocytes Absolute Auto 1.41 K/mm3 (1.10-4.50); Lymphocytes Percent Auto 16.7 % (18.0-42.0); Mean Corpuscular HGB Conc 29.8 g/dL (32.0-36.0); Mean Corpuscular Hemoglobin 24.5 pg (27.0-31.0); Mean Corpuscular Volume 82.4 fL (78.0-102.0); Mean Platelet Volume 8.1 fl (8.7-11.0); Monocytes Absolute Auto 0.88 K/mm3 (0.10-0.90); Monocytes Percent Auto 10.4 % (2.0-11.0); Neutrophils Absolute Auto 5.9 K/mm3 (1.7-7.2); Neutrophils Percent Auto 69.6 % (50.0-70.0); Platelet Count Result 235 K/mm3 (150-420); Red Blood Count 5.34 M/mm3 (4.70-6.10); Red Cell Distribution Width 15.7 % (11.6-14.4); White Blood Count 8.4 K/mm3 (4.8-10.8)
[2020-10-30 12:49] LABS: Alanine Aminotransferase 20 U/L (16-63); Albumin Level 3.6 g/dL (3.4-5.0); Alkaline Phosphatase 86 U/L (46-116); Anion Gap 8 mmol/L (8-16); Aspartate Amino Transferase < 10 U/L (15-37); Bilirubin,Total 0.4 mg/dL (0.00-1.00); Blood Urea Nitrogen 22 mg/dL (7-18); Carbon Dioxide 29 mmol/L (21-32); Chloride 106 mmol/L (98-108); Cholesterol 168 mg/dL (0-200); Estimated Glomerular Filt Rate 36; Glucose 165 mg/dL (70-99); HDL Direct 49 mg/dL (40-60); LDL Cholesterol Calculated 98 mg/dL (<130); Magnesium 2.2 mg/dL (1.8-2.4); Osmolality Calculated 303 mOsm/kg (285-295); Potassium 5.7 mmol/L (3.5-5.1); Prostate Specific Antigen 2.3 ng/mL (< OR = 4.0); Sodium 143 mmol/L (136-145); Total Protein 6.5 g/dL (6.4-8.2); Triglycerides 107 mg/dL (0-150); Vitamin B12 324 pg/mL (193-986)
[2020-11-01 17:46] LABS: Vitamin D 25 Hydroxy 31 ng/mL (30-100)
== END 2020-10-30 11:40 | disposition home or self-care (01) ==
LOC: CHSLAB 11:43
PROVIDERS: PCP Nurse Practitioner Family; Visit Provider Nurse Practitioner Family
DX: N40.0 Benign prostatic hyperplasia without lower urinary tract symptoms (principal); I10 Essential (primary) hypertension; E53.8 Deficiency of other specified B group vitamins; Z79.899 Other long term (current) drug therapy
CPT/HCPCS: 36415; 80053; 80061; 82306; 82607; 83735; 84153; 85025

== ENCOUNTER 2020-11-29 10:51 | Outpatient (CLI) | payer MEDICARE, SELFPAY ==
[2020-11-29 11:09] LABS: Basophils Absolute Auto 0.07 K/mm3 (0.00-0.10); Basophils Percent Auto 0.7 % (0.0-1.0); Eosinophils Absolute Auto 0.14 K/mm3 (0.02-0.50); Eosinophils Percent Auto 1.4 % (1.0-6.0); Hematocrit 43.8 % (37.0-46.0); Hemoglobin 13.8 g/dL (12.4-15.3); Immature Granulocyte Absolute 0.12 K/mm3 (0.00-0.00); Immature Granulocyte Percent A 1.2 % (0.0-0.0); Lymphocytes Absolute Auto 1.45 K/mm3 (1.10-4.50); Lymphocytes Percent Auto 14.7 % (18.0-42.0); Mean Corpuscular HGB Conc 31.5 g/dL (32.0-36.0); Mean Corpuscular Hemoglobin 25.9 pg (27.0-31.0); Mean Corpuscular Volume 82.3 fL (78.0-102.0); Mean Platelet Volume 8.3 fl (8.7-11.0); Monocytes Absolute Auto 0.88 K/mm3 (0.10-0.90); Monocytes Percent Auto 8.9 % (2.0-11.0); Neutrophils Absolute Auto 7.2 K/mm3 (1.7-7.2); Neutrophils Percent Auto 73.1 % (50.0-70.0); Platelet Count Result 250 K/mm3 (150-420); Red Blood Count 5.32 M/mm3 (4.70-6.10); Red Cell Distribution Width 15.9 % (11.6-14.4); White Blood Count 9.9 K/mm3 (4.8-10.8)
[2020-11-29 11:25] LABS: Creatinine Urine 114.58 mg/dL (40-278); Total Protein Urine Random 18.1 mg/dL (0.0-11.9); Ur Ttl Prot Creatinine Ratio 0.16 mg/mg (0-0.20)
[2020-11-29 11:37] LABS: Albumin Level 3.7 g/dL (3.4-5.0); Anion Gap 7 mmol/L (8-16); Blood Urea Nitrogen 27 mg/dL (7-18); Calcium 8.9 mg/dL (8.5-10.1); Carbon Dioxide 30 mmol/L (21-32); Chloride 103 mmol/L (98-108); Estimated Glomerular Filt Rate 31; Glucose 215 mg/dL (70-99); Osmolality Calculated 301 mOsm/kg (285-295); Phosphorus 4.1 mg/dL (2.6-4.7); Potassium 5.6 mmol/L (3.5-5.1); Sodium 140 mmol/L (136-145)
[2020-12-02 17:00] LABS: Parathyroid Intact 53 pg/mL (14-64)
== END 2020-11-29 10:52 | disposition home or self-care (01) ==
LOC: CHSLAB 10:53
PROVIDERS: PCP Nurse Practitioner Family; Visit Provider Internal Medicine Nephrology
DX: N18.32 Chronic kidney disease, stage 3b (principal)
CPT/HCPCS: 36415; 80069; 82570; 83970; 84156; 85025

== ENCOUNTER 2021-01-01 11:54 | Outpatient (CLI) | payer MEDICARE, OTHER, SELFPAY | END 2021-01-01 11:55 | disposition home or self-care (01) | LOC: CHSLAB 11:57 | PROVIDERS: PCP Nurse Practitioner Family; Visit Provider Specialist | DX: C44.42 Squamous cell carcinoma of skin of scalp and neck (principal) | CPT/HCPCS: 88305 ==

== ENCOUNTER 2021-03-28 10:43 | Outpatient (CLI) | payer MEDICARE, SELFPAY ==
[2021-03-28 11:09] LABS: Hematocrit 45.4 % (37.0-46.0); Hemoglobin 13.7 g/dL (12.4-15.3); Mean Corpuscular HGB Conc 30.2 g/dL (32.0-36.0); Mean Corpuscular Hemoglobin 25.5 pg (27.0-31.0); Mean Corpuscular Volume 84.5 fL (78.0-102.0); Mean Platelet Volume 8.7 fl (8.7-11.0); Platelet Count Result 255 K/mm3 (150-420); Red Blood Count 5.37 M/mm3 (4.70-6.10); Red Cell Distribution Width 15.2 % (11.6-14.4)
[2021-03-28 11:15] LABS: Creatinine Urine 122.58 mg/dL (40-278); Total Protein Urine Random 25.1 mg/dL (0.0-11.9)
[2021-03-28 11:57] LABS: Albumin Level 3.5 g/dL (3.4-5.0); Anion Gap 8 mmol/L (8-16); Blood Urea Nitrogen 26 mg/dL (7-18); Calcium 9.1 mg/dL (8.5-10.1); Carbon Dioxide 30 mmol/L (21-32); Chloride 103 mmol/L (98-108); Estimated Glomerular Filt Rate 38; Glucose 257 mg/dL (70-99); Osmolality Calculated 305 mOsm/kg (285-295); Phosphorus 4.1 mg/dL (2.6-4.7); Potassium 5.2 mmol/L (3.5-5.1); Sodium 141 mmol/L (136-145)
[2021-04-01 11:33] LABS: Parathyroid Intact 68 pg/mL (14-64)
== END 2021-03-28 10:44 | disposition home or self-care (01) ==
LOC: CHSLAB 10:45
PROVIDERS: PCP Nurse Practitioner Family; Visit Provider Internal Medicine Nephrology
DX: N18.32 Chronic kidney disease, stage 3b (principal)
CPT/HCPCS: 36415; 80069; 82570; 83970; 84156; 85027

== ENCOUNTER 2021-08-15 09:46 | Outpatient (CLI) | payer MEDICARE, OTHER, SELFPAY ==
--- NOTE | ~2021-08-15 | XR_ITS ---
XR lumbar spine 2-3V 08/15/2021 10:12 Indication: Low back pain Procedure: 3 views lumbar spine Comparison: No prior studies for comparison. Findings: There is disc narrowing at all lumbar levels. There is mild wedge shaped appearance to L1 a nd T12, likely chronic. There is atherosclerosis of the aorta. There is advanced multilevel facet hyp ertrophy. No acute fracture or traumatic malalignment. No evidence for spondylolisthesis. Sacral fora men are symmetric. There is a right hip arthroplasty. Impression: 1: Moderate-severe lumbar spondylosis. Reviewed, dictated and finalized at location B. Impression: 1: Moderate-severe lumbar spondylosis.
== END 2021-08-15 09:47 | disposition home or self-care (01) ==
LOC: CHSIMG 09:49
PROVIDERS: PCP Nurse Practitioner Family; Visit Provider Nurse Practitioner Family
DX: M54.9 Dorsalgia, unspecified (principal)
CPT/HCPCS: 72100

== ENCOUNTER 2021-09-19 10:39 | Outpatient (CLI) | payer MEDICARE, SELFPAY ==
[2021-09-19 11:36] LABS: Albumin Level 3.5 g/dL (3.4-5.0); Anion Gap 8 mmol/L (8-16); Blood Urea Nitrogen 28 mg/dL (7-18); Calcium 8.8 mg/dL (8.5-10.1); Carbon Dioxide 30 mmol/L (21-32); Chloride 103 mmol/L (98-108); Estimated Glomerular Filt Rate 32; Glucose 260 mg/dL (70-99); Osmolality Calculated 306 mOsm/kg (285-295); Phosphorus 4.7 mg/dL (2.6-4.7); Potassium 4.9 mmol/L (3.5-5.1); Sodium 141 mmol/L (136-145)
[2021-09-19 13:33] LABS: Creatinine Urine 29.81 mg/dL (40-278); Total Protein Urine Random < 6.0 mg/dL (0.0-11.9)
[2021-09-22 12:11] LABS: Parathyroid Intact 111 pg/mL (14-64)
[2021-09-23 20:57] LABS: Vitamin D 25 Hydroxy 31 ng/mL (30-100)
== END 2021-09-19 10:40 | disposition home or self-care (01) ==
LOC: CHSLAB 10:40
PROVIDERS: PCP Nurse Practitioner Family; Visit Provider Internal Medicine Nephrology
DX: N18.32 Chronic kidney disease, stage 3b (principal)
CPT/HCPCS: 36415; 80069; 82306; 82570; 83970; 84156

== ENCOUNTER 2022-04-25 13:25 | Outpatient (CLI) | payer MEDICARE, SELFPAY ==
[2022-04-25 13:58] LABS: Creatinine Urine 33.66 mg/dL (40-278); Total Protein Urine Random < 6.0 mg/dL (0.0-11.9); Ur Ttl Prot Creatinine Ratio 0.18 mg/mg (0-0.20)
[2022-04-25 14:11] LABS: Albumin Level 3.5 g/dL (3.4-5.0); Anion Gap 9 mmol/L (8-16); Blood Urea Nitrogen 25 mg/dL (7-18); Calcium 8.6 mg/dL (8.5-10.1); Carbon Dioxide 32 mmol/L (21-32); Chloride 102 mmol/L (98-108); Estimated Glomerular Filt Rate 38; Glucose 258 mg/dL (70-99); Osmolality Calculated 309 mOsm/kg (285-295); Phosphorus 4.7 mg/dL (2.6-4.7); Potassium 4.6 mmol/L (3.5-5.1); Sodium 143 mmol/L (136-145)
[2022-04-29 19:20] LABS: Parathyroid Intact 131 pg/mL (14-64)
== END 2022-04-25 13:26 | disposition home or self-care (01) ==
LOC: CHSLAB 13:27
PROVIDERS: PCP Nurse Practitioner Family; Visit Provider Internal Medicine Nephrology
DX: N18.5 Chronic kidney disease, stage 5 (principal)
CPT/HCPCS: 36415; 80069; 82570; 83970; 84156

== ENCOUNTER 2022-08-28 14:17 | Emergency (ER) | payer MEDICARE, OTHER, SELFPAY ==
--- NOTE | ~2022-08-28 | XR_ITS ---
EXAMINATION: XR chest 1V portable INDICATION: Cough and dizziness TECHNIQUE: Portable AP chest at 1509 hours COMPARISON: 10/16/2019 FINDINGS: There is mild atelectasis of the lung bases. No pleural effusion or pneumothorax. There is a moderate-sized sliding hiatal hernia. The heart size is normal. IMPRESSION: 1. Mild atelectasis of the lung bases. Reviewed, dictated and finalized at location L.
[2022-08-28 14:20] VITALS: BP 113/72; PULSE 94; TEMP 36.6; O2SAT 94
--- NOTE | 2022-08-28 14:43 | ECG_ITS ---
Measurements Intervals [place] Rate: 98 P: 4 KS: 154 QRS: -8 QRSD: 94 T: 29 QT: 339 QTc: 434 Interpretive Statements SINUS RHYTHM NORMAL ECG COMPARED TO ECG 10/16/2019 11:28:23 NO SIGNIFICANT CHANGES Electronically Signed On 09-01-2022 9:14:42 CDT by Jc Quintero M.D.
[2022-08-28 15:09] VITALS: PULSE 102; RESP 20; O2SAT 90
[2022-08-28] MEDS: IPRATROPIUM 0.5 MG/ALBUTEROL SULFATE 2.5 MG AMPUL.NEB 3 ML INHALATION (15:09)
[2022-08-28 15:12] LABS: Basophils Absolute Auto 0.05 K/mm3 (0.00-0.10); Basophils Percent Auto 0.6 % (0.0-1.0); Eosinophils Absolute Auto 0.03 K/mm3 (0.02-0.50); Eosinophils Percent Auto 0.3 % (1.0-6.0); Hematocrit 46.6 % (37.0-46.0); Hemoglobin 15.3 g/dL (12.4-15.3); Immature Granulocyte Absolute 0.11 K/mm3 (0.00-0.00); Immature Granulocyte Percent A 1.3 % (0.0-0.0); Immature Platelet Fraction Pct 0.7 % (1.0-7.0); Lymphocytes Absolute Auto 0.28 K/mm3 (1.10-4.50); Lymphocytes Percent Auto 3.2 % (18.0-42.0); Mean Corpuscular HGB Conc 32.8 g/dL (32.0-36.0); Mean Corpuscular Hemoglobin 29.8 pg (27.0-31.0); Mean Corpuscular Volume 90.8 fL (78.0-102.0); Mean Platelet Volume 8.3 fl (8.7-11.0); Monocytes Absolute Auto 0.61 K/mm3 (0.10-0.90); Neutrophils Absolute Auto 7.6 K/mm3 (1.7-7.2); Neutrophils Percent Auto 87.6 % (50.0-70.0); Platelet Count Result 163 K/mm3 (150-420); Red Blood Count 5.13 M/mm3 (4.70-6.10); Red Cell Distribution Width 14.3 % (11.6-14.4); White Blood Count 8.7 K/mm3 (4.8-10.8)
[2022-08-28 15:18] VITALS: PULSE 98; RESP 18; O2SAT 99
[2022-08-28 15:20] VITALS: BP 134/60; PULSE 89; RESP 18; O2SAT 96
[2022-08-28] MEDS: methylPREDNISolone SOD SUCC 125 MG VIAL IV PUSH (15:22)
[2022-08-28 15:27] LABS: INR 0.9; Partial Thromboplastin Time 26.9 SEC (23.90-30.70); Prothrombin Time 10.3 Seconds (9.50-12.10)
[2022-08-28 15:31] LABS: Lactic Acid Reflex 1.4 mmol/L (0.4-2.0)
[2022-08-28 15:33] LABS: Alanine Aminotransferase 22 U/L (16-63); Albumin Level 3.2 g/dL (3.4-5.0); Alkaline Phosphatase 89 U/L (46-116); Anion Gap 8 mmol/L (8-16); Aspartate Amino Transferase 14 U/L (15-37); Bilirubin,Total 0.8 mg/dL (0.00-1.00); Blood Urea Nitrogen 18 mg/dL (7-18); Calcium 8.8 mg/dL (8.5-10.1); Carbon Dioxide 28 mmol/L (21-32); Chloride 101 mmol/L (98-108); Estimated CRCL calculation 34 ml/min; Estimated Glomerular Filt Rate 42; Glucose 208 mg/dL (70-99); NT Pro B Type Natriuretic Pept 75 pg/mL (0-450); Osmolality Calculated 291 mOsm/kg (285-295); Potassium 4.6 mmol/L (3.5-5.1); Sodium 137 mmol/L (136-145); Total Protein 7.2 g/dL (6.4-8.2); Troponin I 4.9 ng/L (0.00-60.4)
[2022-08-28 15:57] LABS: Influenza A QL RT-PCR Negative (Negative); Influenza B QL RT-PCR Negative (Negative); SARS-CoV-2 RNA PCR Negative (Negative)
[2022-08-28 16:00] VITALS: BP 125/65; PULSE 71; RESP 18; O2SAT 96
[2022-08-28 16:05] LABS: RSV RNA, RT-PCR Negative (Negative)
[2022-08-28 16:21] LABS: Appearance Urine Clear (Clear); Bilirubin Urine Negative (Negative); Blood Urine Negative (Negative); Color Urine Yellow (Yellow); Glucose Urine UA 3+ (Negative); Ketones Urine 1+ (Negative); Leukocyte Esterase Ur Negative LEU/UL (Negative); Nitrate Urine Negative (Negative); Protein Urine Negative (Negative); Urobilinogen Urine 0.2 mg/dL (0.2-1.0); pH Urine 5.5 (5.0-8.0)
[2022-08-28 16:27] LABS: Add Urine Microscopic? NO
--- NOTE | 2022-08-28 16:43 | ED.WEAKNESS ---
HPI - Weakness General Chief complaint: Weakness Stated complaint: cough/lethargic Time Seen by Provider: 08/28/22 14:18 Source: patient Mode of arrival: ambulatory Limitations: no limitations History of Present Illness HPI Narrative: this is a 77-year-old gentleman presents with generalized weakness with a history of COPD and cigar use presents with some chest tightness and shortness of breath with cough that is nonproductive with no fever chills no chest pain no abdominal pain no dysuria no flank pain no nausea vomiting no diarrhea or constipation. Complaint: generalized weakness Related Data Home Medications Medication Instructions Recorded Confirmed furosemide 40 mg tablet 20 mg PO QAM 10/17/20 08/28/22 calcium carbonate 200 mg calcium 200 mg PO TID 05/12/22 08/28/22 (500 mg) chewable tablet ([employer]) metoprolol succinate 50 mg 100 mg PO BID 05/12/22 08/28/22 tablet,extended release 24 hr Allergies Allergy/AdvReac Type Severity Reaction Status Date / Time No Known Allergies Allergy Verified 08/28/22 14:43 Review of Systems Review of Systems: All systems reviewed & are unremarkable except as noted in HPI and below PMFSH Past Medical History Medical History Arthritis Asthma Benign prostate hyperplasia CHF (congestive heart failure) COPD (chronic obstructive pulmonary disease) Coronary artery disease Depression PAUL (generalized anxiety disorder) HTN (hypertension) Hypercholesterolemia Meniere disease MARLENA (obstructive sleep apnea) Primary generalized (osteo)arthritis Type 2 diabetes mellitus Surgical History Surgical History History of coronary artery stent placement Status post hip surgery 10/15/19 Right bipolar hemiarthroplasty, Dr. Braxton Family History Family History Mother Family history of coronary artery disease Social History Social History Smoking status: Former smoker Tobacco type: cigars Second hand tobacco smoke exposure: Yes Additional smoking assessment comments: Pt reports smoking a cigar approximately once a week. Alcohol intake: former Drinks per week: 1 Substance use: never Gender identity (if verbalized by the patient): Male Spiritual care concerns: No Exam Const: Nutritional Appearance: well nourished Orientation/consciousness: patient oriented x3 Limitations: no limitations HENMT: Head: normal to inspection Eyes: Conjunctivae: conjunctivae normal Neck: Neck: normal visual inspection Chest: Chest palpation & inspection: normal inspection of the chest Resp: Effort & Inspection: normal respiratory effort Cardio: Rate: regular rate Rhythm: regular rhythm GI: GI Palp: Yes Soft to palpation Auscultation: normal bowel sounds : General: Yes bladder normal to palpation Urinary Catheter: Urinary Catheter: patent and draining Back/Spine/Pelvis: Back: no CVA tenderness Skin: General skin exam: normal color Neuro: General: patient oriented x3 Cranial nerves: Yes Nystagmus not present Psych: Mental Status: mental status grossly normal Affect: normal affect Course Course Emergency Course: Patient received DuoNebs and IV Solu-Medrol on reassessment patient is doing much better labs chest x-ray reviewed and everything within normal limits. Vital Signs Vital signs: Vital Signs Temperature 36.6 C 08/28/22 14:20 Pulse Rate 94 08/28/22 14:20 Blood Pressure 113/72 08/28/22 14:20 Pulse Oximetry 94 08/28/22 14:20 Oxygen Delivery Room Air 08/28/22 14:20 Temperature 36.6 C 08/28/22 14:20 Pulse Rate 71 08/28/22 16:00 Respiratory Rate 18 08/28/22 16:00 Blood Pressure 125/65 08/28/22 16:00 Pulse Oximetry 96 08/28/22 16:00 Oxygen Delivery Room Air 08/28/22 16:00
[2022-08-28 16:51] VITALS: BP 134/67; PULSE 75; RESP 18; TEMP 36.6; O2SAT 96
--- NOTE | 2022-09-03 12:57 | PC.NURSE ---
Final blood culture x 2 show no growth. No change in treatment plan.
== END 2022-08-28 17:00 | disposition home or self-care (01) ==
PROVIDERS: Emergency Provider Emergency Medicine; PCP Nurse Practitioner Family
DX: J44.9 Chronic obstructive pulmonary disease, unspecified (principal); J06.9 Acute upper respiratory infection, unspecified; I11.0 Hypertensive heart disease with heart failure; I50.9 Heart failure, unspecified; E11.9 Type 2 diabetes mellitus without complications; Z87.891 Personal history of nicotine dependence; Z20.822 Contact with and (suspected) exposure to COVID-19
CPT/HCPCS: 36415; 71045; 80053; 81003; 83605; 83735; 83880; 84484; 85025; 85055; 85380; 85610; 85730; 87040; 87637; 93005; 94640; 96374; 99284; J2930

== ENCOUNTER 2022-10-30 13:34 | Outpatient (CLI) | payer MEDICARE, SELFPAY ==
[2022-10-30 13:47] LABS: Hematocrit 49.2 % (37.0-46.0); Hemoglobin 15.9 g/dL (12.4-15.3); Mean Corpuscular HGB Conc 32.3 g/dL (32.0-36.0); Mean Corpuscular Hemoglobin 30.1 pg (27.0-31.0); Mean Platelet Volume 8.4 fl (8.7-11.0); Platelet Count Result 201 K/mm3 (150-420); Red Blood Count 5.29 M/mm3 (4.70-6.10); Red Cell Distribution Width 14.4 % (11.6-14.4); White Blood Count 9.7 K/mm3 (4.8-10.8)
[2022-10-30 14:16] LABS: Albumin Level 3.5 g/dL (3.4-5.0); Anion Gap 11 mmol/L (8-16); Blood Urea Nitrogen 27 mg/dL (7-18); Carbon Dioxide 30 mmol/L (21-32); Chloride 103 mmol/L (98-108); Estimated Glomerular Filt Rate 35; Glucose 226 mg/dL (70-99); Osmolality Calculated 310 mOsm/kg (285-295); Phosphorus 4.3 mg/dL (2.6-4.7); Potassium 5.2 mmol/L (3.5-5.1); Sodium 144 mmol/L (136-145)
[2022-11-02 20:28] LABS: Vitamin D 25 Hydroxy 33 ng/mL (30-100)
[2022-11-03 19:47] LABS: Parathyroid Intact 104 pg/mL (14-64)
== END 2022-10-30 13:35 | disposition home or self-care (01) ==
LOC: CHSLAB 13:35
PROVIDERS: PCP Nurse Practitioner Family; Visit Provider Internal Medicine Nephrology
DX: N18.9 Chronic kidney disease, unspecified (principal); E21.1 Secondary hyperparathyroidism, not elsewhere classified; E11.9 Type 2 diabetes mellitus without complications; Z79.4 Long term (current) use of insulin
CPT/HCPCS: 36415; 80069; 82306; 83970; 85027

== ENCOUNTER 2022-11-03 13:29 | Outpatient (CLI) | payer MEDICARE, SELFPAY ==
[2022-11-03 13:57] LABS: Creatinine Urine 69.75 mg/dL (40-278); Sodium Urine Random 24 mmol/L (20-110)
[2022-11-05 20:26] LABS: Parathyroid Intact 94 pg/mL (14-64)
== END 2022-11-03 13:30 | disposition home or self-care (01) ==
LOC: CHSLAB 13:31
PROVIDERS: PCP Nurse Practitioner Family; Visit Provider Internal Medicine Nephrology
DX: N18.9 Chronic kidney disease, unspecified (principal); E21.1 Secondary hyperparathyroidism, not elsewhere classified; E11.9 Type 2 diabetes mellitus without complications; Z79.4 Long term (current) use of insulin
CPT/HCPCS: 36415; 82570; 83970; 84300

== ENCOUNTER 2023-03-13 13:19 | Outpatient (CLI) | payer MEDICARE, OTHER, SELFPAY ==
--- NOTE | ~2023-03-13 | CT_ITS ---
EXAMINATION: CT abdomen pelvis w con DATE: 03/13/2023 15:05 INDICATION: Right lower quadrant abdominal pain. Nausea and vomiting. TECHNIQUE: Computed tomography (CT) of the abdomen and pelvis was performed with 100 mL Omnipaque 350 intravenous contrast. Automated exposure control and iterative reconstruction technique were employe d. The dose-length product was 671.65 mGy-cm. COMPARISON: CT pelvis 02/06/2015 FINDINGS: The visualized portions of the lung bases demonstrate peripheral reticular opacities, consi stent with chronic interstitial lung disease. A calcified right lung nodule is consistent with old gr anulomatous disease. No pleural effusion. The heart size is normal. There are coronary artery calcifi cations. No pericardial effusion. There is a large sliding hiatal hernia. The liver, gallbladder, spl een, pancreas, and adrenal glands are normal. There are cysts in the kidneys measuring up to 3.0 cm o n the right. There is calcified atherosclerosis of the aorta and many of the other arteries. The blad chikis is distended. The prostate is moderately enlarged. There is diverticulosis of the colon without e vidence of diverticulitis. The appendix is dilated to 2.4 cm with wall thickening and discontinuous m ucosa, consistent with ruptured appendicitis. There is a small volume of ascites in the right paracol ic gutter and the inferior peritoneum with peritoneal thickening and enhancement. There are no pathol ogically enlarged lymph nodes. There is a bipolar right hip hemiarthroplasty. There are chronic compr ession fractures of L1 and L2. There is severe thoracic spondylosis and moderate lumbar spondylosis. IMPRESSION: 1. Ruptured acute appendicitis with ascites in the right paracolic gutter and inferior peritoneum wit h peritoneal thickening and enhancement, consistent with peritonitis. 2. Large sliding hiatal hernia. Reviewed, dictated and finalized at location A. UNICATION MANAGER IMPRESSION: 1. Ruptured acute appendicitis with ascites in the right paracolic gutter and i nferior peritoneum with peritoneal thickening and enhancement, consistent with peritonitis. 2. Large sliding hiatal hernia.
[2023-03-13 13:44] LABS: Basophils Absolute Auto 0.03 K/mm3 (0.00-0.10); Basophils Percent Auto 0.2 % (0.0-1.0); Eosinophils Absolute Auto 0.08 K/mm3 (0.02-0.50); Eosinophils Percent Auto 0.7 % (1.0-6.0); Hematocrit 42.9 % (37.0-46.0); Hemoglobin 14.1 g/dL (12.4-15.3); Immature Granulocyte Absolute 0.11 K/mm3 (0.00-0.00); Immature Granulocyte Percent A 0.9 % (0.0-0.0); Lymphocytes Absolute Auto 0.53 K/mm3 (1.10-4.50); Lymphocytes Percent Auto 4.3 % (18.0-42.0); Mean Corpuscular HGB Conc 32.9 g/dL (32.0-36.0); Mean Corpuscular Hemoglobin 29.7 pg (27.0-31.0); Mean Corpuscular Volume 90.5 fL (78.0-102.0); Mean Platelet Volume 8.3 fl (8.7-11.0); Monocytes Absolute Auto 0.86 K/mm3 (0.10-0.90); Neutrophils Absolute Auto 10.6 K/mm3 (1.7-7.2); Neutrophils Percent Auto 86.9 % (50.0-70.0); Platelet Count Result 201 K/mm3 (150-420); Red Blood Count 4.74 M/mm3 (4.70-6.10); Red Cell Distribution Width 13.5 % (11.6-14.4); White Blood Count 12.2 K/mm3 (4.8-10.8)
[2023-03-13 14:17] LABS: Hemoglobin A1C 9.2 % (<5.7)
[2023-03-13 14:18] LABS: Prothrombin Time 10.8 Seconds (9.50-12.10)
[2023-03-13 14:27] LABS: Alanine Aminotransferase 23 U/L (16-63); Albumin Level 2.4 g/dL (3.4-5.0); Alkaline Phosphatase 95 U/L (46-116); Anion Gap 9 mmol/L (8-16); Aspartate Amino Transferase 17 U/L (15-37); Bilirubin,Total 0.5 mg/dL (0.00-1.00); Blood Urea Nitrogen 23 mg/dL (7-18); Calcium 8.4 mg/dL (8.5-10.1); Carbon Dioxide 28 mmol/L (21-32); Chloride 97 mmol/L (98-108); Estimated Glomerular Filt Rate 34; Glucose 269 mg/dL (70-99); Lipase 36 U/L (16-77); Osmolality Calculated 290 mOsm/kg (285-295); Potassium 4.3 mmol/L (3.5-5.1); Sodium 134 mmol/L (136-145); Total Protein 5.7 g/dL (6.4-8.2)
[2023-03-13 14:42] LABS: CRP > 25.0 mg/dL (0.0-0.9)
== END 2023-03-13 13:20 | disposition home or self-care (01) ==
LOC: CHSLAB 13:21
PROVIDERS: PCP Family Medicine; Visit Provider Family Medicine
DX: E11.9 Type 2 diabetes mellitus without complications (principal); R10.9 Unspecified abdominal pain; K35.80 Unspecified acute appendicitis; K44.9 Diaphragmatic hernia without obstruction or gangrene
CPT/HCPCS: 36415; 74177; 80053; 83036; 83690; 85025; 85610; 86140; Q9967

== ENCOUNTER 2023-03-13 16:46 | Inpatient (IN) | payer MEDICARE, OTHER, SELFPAY ==
[2023-03-13] VITALS (12 sets, daily range): BP systolic 106–148; BP diastolic 69–92; PULSE 84–99; RESP 13–20; TEMP 36.4–36.8; O2SAT 91–99
--- NOTE | 2023-03-13 17:00 | ED.ABDPAIN ---
HPI - Abdominal Pain General Chief Complaint: Abdominal Pain Stated Complaint: ruptured appendix Time Seen by Provider: 03/13/23 16:54 Source: patient, RN notes reviewed and old records reviewed Mode of arrival: ambulatory Limitations: no limitations History of Present Illness HPI narrative: This is a 77 year old male who presents for evaluation of ruptured appendicitis. PAtient has been having abdominal pain for 3-4 days. He states his pain initially started in his right lower abdomen. He also had nausea and vomiting at onset. HE reports diffuse abdominal pain at times. He states he has minimal pain at rest but worse with movement. He was evaluated by his PCP today as outpatient. He had CT abdomen and pelvis today that shows ruptured appendicitis. He denies fever or chills. HE denies taking anticoagulation. He last ate at 1130 am today. Related Data Home Medications Medication Instructions Recorded Confirmed furosemide 40 mg tablet 20 mg PO QAM 10/17/20 01/29/23 calcium carbonate 200 mg calcium 200 mg PO TID 05/12/22 01/29/23 (500 mg) chewable tablet ([employer]) metoprolol succinate 50 mg 100 mg PO BID 05/12/22 01/29/23 tablet,extended release 24 hr Allergies Allergy/AdvReac Type Severity Reaction Status Date / Time No Known Allergies Allergy Verified 03/13/23 07:38 Review of Systems Constitutional: Constitutional: Denies weakness Cardiovascular: Cardiovascular: Denies syncope, Denies rapid heart rate, Denies irregular heart rhythm, Denies leg edema and Denies dyspnea Respiratory: Respiratory: Denies chest congestion, Denies hemoptysis, Denies excessive phlegm production and Denies dyspnea Gastrointestinal: Gastrointestinal: Reports abdominal pain, Denies hematochezia, Denies diarrhea and Reports vomiting Genitourinary: Genitourinary: Denies hematuria, Denies dysuria, Denies penile discharge and Denies testicular pain Musculoskeletal: Musculoskeletal: Denies joint swelling, Denies loss of height and Denies muscle weakness Neurologic: Denies syncope, Denies focal weakness and Denies weakness PMFSH Past Medical History Medical History Arthritis Asthma Benign prostate hyperplasia CHF (congestive heart failure) COPD (chronic obstructive pulmonary disease) Coronary artery disease Depression PAUL (generalized anxiety disorder) HTN (hypertension) Hypercholesterolemia Meniere disease MARLENA (obstructive sleep apnea) Primary generalized (osteo)arthritis Type 2 diabetes mellitus Surgical History Surgical History History of coronary artery stent placement Status post hip surgery 10/15/19 Right bipolar hemiarthroplasty, Dr. Braxton Family History Family History Mother Family history of coronary artery disease Social History Social History Smoking status: Former smoker Tobacco type: cigars Second hand tobacco smoke exposure: Yes Additional smoking assessment comments: Pt reports smoking a cigar approximately once a week. Alcohol intake: former Drinks per week: 1 Substance use: never Lack of Transportation: No Lack of Food: Never True Current Housing: I Have Housing Concerned About Future Housing: No Difficulty Paying Gas/Electric Bills: No Difficulty Paying for Meds: No Currently Unemployed: No Education: High School Diploma/GED Difficulty w/ Childcare or Family Care: No Gender identity (if verbalized by the patient): Male Spiritual care concerns: No Exam Const: General: no acute distress and alert Nutritional Appearance: well nourished Orientation/consciousness: patient oriented x3 Limitations: no limitations HENMT: Head: normal to inspection Eyes: EOM: EOMs intact bilaterally Resp: Effort & Inspection: normal respiratory effort Aus
--- NOTE | 2023-03-13 17:39 | WPDANESEPPF ---
Anes - Initial Pre Proc Eval Procedure: Operation Date: 03/13/23 18:30 Proposed Procedures p Laparoscopic Appendectomy - Dav Westbrook MD Date/Time: 03/13/23 17:39 Surgeon: Dav Westbrook MD Pre Op Diagnosis: ruptured appendix Patient Data Age: 77 Gender: M Height: 1.75 m Weight: 70.3 kg Last Vital Signs Temp 36.7 C 03/13/23 16:52 Pulse 97 03/13/23 17:36 Resp 15 03/13/23 17:36 BP 148/92 H 03/13/23 16:52 Pulse Ox 99 03/13/23 17:36 O2 Del Method Room Air 03/13/23 16:52 Allergies Allergy/AdvReac Type Severity Reaction Status Date / Time No Known Allergies Allergy Verified 03/13/23 07:38 Home Medications Medication Instructions Recorded Confirmed Type acetaminophen 650 mg 650 mg PO Q8H 30 days #90 tabs 10/20/19 01/29/23 Rx tablet,extended release (Tylenol Arthritis Pain) ranolazine 500 mg tablet,extended See Rx Instructions .Route 08/15/20 01/29/23 Rx release,12 hr .COMPLEX #180 tabs furosemide 40 mg tablet 20 mg PO QAM 10/17/20 01/29/23 History pen needle, diabetic 32 gauge x #100 ea 03/08/21 01/29/23 Rx 1/6 pen needle, diabetic 32 gauge x #100 ea 03/17/22 01/29/23 Rx 1/4 (BD Ultra-Fine Micro Pen Needle) calcium carbonate 200 mg calcium 200 mg PO TID 05/12/22 01/29/23 History (500 mg) chewable tablet ([employer]) metoprolol succinate 50 mg 100 mg PO BID 05/12/22 01/29/23 History tablet,extended release 24 hr budesonide-formoterol HFA 160 See Rx Instructions .Route 07/14/22 01/29/23 Rx mcg-4.5 mcg/actuation aerosol .COMPLEX #30.6 ea inhaler (Symbicort) omeprazole 20 mg capsule,delayed See Rx Instructions .Route 07/21/22 01/29/23 Rx release .COMPLEX #90 caps nitroglycerin 0.4 mg sublingual See Rx Instructions .Route 08/04/22 01/29/23 Rx tablet .COMPLEX #25 tabs dapagliflozin propanediol 5 mg See Rx Instructions .Route 10/06/22 01/29/23 Rx tablet (Farxiga) .COMPLEX #90 tabs atorvastatin 20 mg tablet See Rx Instructions .Route 12/04/22 01/29/23 Rx .COMPLEX #90 tabs duloxetine 30 mg capsule,delayed See Rx Instructions .Route 01/19/23 01/29/23 Rx release .COMPLEX #90 caps dulaglutide 0.75 mg/0.5 mL 0.75 mg (0.5 mL) subcut WEEKLY #2 01/21/23 01/29/23 Rx subcutaneous pen injector mL (Trulicity) insulin degludec 100 unit/mL (3 15 unit (0.15 mL) subcut QHS #15 mL 01/29/23 01/29/23 Rx mL) subcutaneous pen (Tresiba FlexTouch U-100 insulin) blood sugar diagnostic (True #100 strips 03/09/23 Rx Metrix Glucose Test Strip) meclizine 25 mg tablet See Rx Instructions .Route 03/09/23 Rx .COMPLEX #90 tabs Patient hx anesthesia problems: none Family hx anesthesia problems: none Results Review: All pre-operative results and documents have been reviewed as part of the pre-operative evaluation. [facility] Past Medical History Medical History Arthritis Asthma Benign prostate hyperplasia CHF (congestive heart failure) COPD (chronic obstructive pulmonary disease) Coronary artery disease Depression PAUL (generalized anxiety disorder) HTN (hypertension) Hypercholesterolemia Meniere disease MARLENA (obstructive sleep apnea) Primary generalized (osteo)arthritis Type 2 diabetes mellitus Surgical History Surgical History History of coronary artery stent placement Status post hip surgery 10/15/19 Right bipolar hemiarthroplasty, Dr. Braxton Family History Family History Mother Family history of coronary artery disease Social History Social History Smoking status: Former smoker Tobacco type: cigars Second hand tobacco smoke exposure: Yes Additional smoking assessment comments: Pt reports smoking a cigar approximately once a week. Alcohol intake: former Drinks per week: 1 Substance use: never
--- NOTE | 2023-03-13 18:01 | WPDHPUPDATE1 ---
History and Physical Update Update Date/Time: 03/13/23 18:01 History and Physical has been reviewed, including an updated exam of the patient. There are NO changes in the patient's condition. Risks, benefits, and alternatives have been discussed and questions answered. Patient agrees to proceed with procedure.
--- NOTE | 2023-03-13 18:01 | PM.IMHP ---
H&P: HPI History of Present Illness Date/Time: 03/13/23 18:01 Chief Complaint: Right lower quadrant pain Narrative: Patient is a 77-year-old man who has had for at least 4 days abdominal pain in the right lower quadrant. He has had some nausea and 1 episode of vomiting. It has not gone away and in fact has been more severe. He saw his primary care doctor today. He was noted to have tenderness to palpation in both lower quadrants right greater than left. There was guarding as well. [place] [id number]. His creatinine was 1.9. He had a CT scan of the abdomen and pelvis as an outpatient. This showed acute appendicitis with ruptured appendix and some local ascites. He came to the emergency room at [place]. His exam there was also consistent with appendicitis. He is taken to surgery now for laparoscopic appendectomy for ruptured appendicitis Review of Systems Review of Systems: All systems reviewed & are unremarkable except as noted in HPI and below (HPI and those items noted below) Constitutional: Constitutional: Denies chills and Denies fever(s) Cardiovascular: Cardiovascular: Denies chest pain, Denies diaphoresis, Denies dyspnea and Denies paroxysmal nocturnal dyspnea Respiratory: Respiratory: Denies chest congestion, Denies cough and Denies dyspnea Integumentary/Breasts: Skin/Breast: Denies lesions and Denies rash PMFSH Past Medical History Medical History Arthritis Asthma Benign prostate hyperplasia CHF (congestive heart failure) COPD (chronic obstructive pulmonary disease) Coronary artery disease Depression PAUL (generalized anxiety disorder) HTN (hypertension) Hypercholesterolemia Meniere disease MARLENA (obstructive sleep apnea) Primary generalized (osteo)arthritis Type 2 diabetes mellitus Surgical History Surgical History History of coronary artery stent placement Status post hip surgery 10/15/19 Right bipolar hemiarthroplasty, Dr. Braxton Family History Family History Mother Family history of coronary artery disease Social History Social History Smoking status: Former smoker Tobacco type: cigars Second hand tobacco smoke exposure: Yes Additional smoking assessment comments: Pt reports smoking a cigar approximately once a week. Alcohol intake: former Drinks per week: 1 Substance use: never Lack of Transportation: No Lack of Food: Never True Current Housing: I Have Housing Concerned About Future Housing: No Difficulty Paying Gas/Electric Bills: No Difficulty Paying for Meds: No Currently Unemployed: No Education: High School Diploma/GED Difficulty w/ Childcare or Family Care: No Gender identity (if verbalized by the patient): Male Spiritual care concerns: No Meds Home Medications and Allergies Home Medications Medication Instructions Recorded Confirmed Type acetaminophen 650 mg 650 mg PO Q8H 30 days #90 tabs 10/20/19 01/29/23 Rx tablet,extended release (Tylenol Arthritis Pain) ranolazine 500 mg tablet,extended See Rx Instructions .Route 08/15/20 01/29/23 Rx release,12 hr .COMPLEX #180 tabs furosemide 40 mg tablet 20 mg PO QAM 10/17/20 01/29/23 History pen needle, diabetic 32 gauge x #100 ea 03/08/21 01/29/23 Rx 1/6 pen needle, diabetic 32 gauge x #100 ea 03/17/22 01/29/23 Rx 1/4 (BD Ultra-Fine Micro Pen Needle) calcium carbonate 200 mg calcium 200 mg PO TID 05/12/22 01/29/23 History (500 mg) chewable tablet (Tums [employer]) metoprolol succinate 50 mg 100 mg PO BID 05/12/22 01/29/23 History tablet,extended release 24 hr budesonide-formoterol HFA 160 See Rx Instructions .Route 07/14/22 01/29/23 Rx mcg-4.5 mcg/actuation aerosol .COMPLEX #30.6 ea inhaler (Symbicort) omeprazole 20 mg caps
[2023-03-13] MEDS: metroNIDAZOLE 500 MG/ISO 100ML 500 MG/100 ML BAG 100 MG IVPB (18:11)
[2023-03-13] MEDS: LACTATED RINGERS 1,000 ML 30 ML IV CONT ×2 (18:15→21:00)
[2023-03-13] MEDS: BUPIVACAINE/EPINEPHRINE 0.5% 10 ML VIAL 30 ML INFILTRATE (18:31)
--- NOTE | 2023-03-13 21:43 | W.PM.PROC2 ---
Procedure Note - Detailed Date of Procedure 03/13/23 Pre-op Diagnosis ruptured appendix Post-op Diagnosis Other (Ruptured appendicitis with generalized peritonitis and multiple intra-abdominal abscesses) Procedure Performed Attempted laparoscopic appendectomy, converted to open appendectomy Surgeon Dav Westbrook MD Composition Tile Layer Sanya LEIGH Anesthesia General and Local Indications Patient id has been having right lower quadrant abdominal pain with some nausea and vomiting for 4-5 days. He had an outpatient CT which showed ruptured appendicitis. He came to the emergency room at [place] where he was noted to have a white blood cell count of over 12,000 and peritonitis on physical exam. After discussion, he is taken to surgery now for laparoscopic appendectomy. Findings The degree of inflammation was very severe. Identification of the appendix verses the distal ileum verses epiploica and cecum in itself was quite difficult. Any degree of mobilization where there is the blunt or sharp was met with significant oozing of blood. The appendix was found and was very dilated at its origin. There were abscesses associated with the appendix the appendix was severed shortly beyond its origin. Then an intermediary segment of appendix also was severed and the distal appendix was most likely obliterated an eye severe inflammatory process in the right lower quadrant on the lateral pelvic wall. We converted to open as with the bleeding and difficulty identifying different structures, even though we tried to persist with laparoscopic appendectomy for at least an hour and a half, it was felt to not be safe to persist and it was converted open. I should also point out that on 1st entering the abdomen laparoscopically there was diffuse fibrin is exudate and the omentum was attached to the anterior abdominal wall. There were inflammatory adhesions as well as exudate primarily in the right lower quadrant but there was evidence of diffuse peritonitis. Description of Procedure The patient was taken to surgery and induced into general anesthesia. The abdomen is prepped and draped. Trocars were placed in the usual fashion using [employer] optical trocars and a 5 mm camera. The left upper quadrant and left mid abdominal ports were 5 mm ports. The left lower quadrant was a 10 11 port. After adequate insufflation we performed laparoscopy and found the diffuse inflammation mentioned above. Adhesions of the omentum and some of the fibrin is exudate were taken down and exudate was removed were possible. Eventually we worked our way towards the right lower quadrant. This was an area with severe inflammation and no organ was easily manipulated as they were all fairly stuck together. It was also difficult to identify the structures of the right lower quadrant such as cecum appendix distal ileum, ligament of trebes. None the less, we persevered and were able to break up some of these adhesions mostly using blunt dissection and a lot of times using the suction. It was still very hard to definitely determine what was the appendix. There was diffuse oozing with all dissection as mention. No severe bleeding occurred it was all oozing associated with severe inflammation. We did break up several adhesions and were able to follow the ascending colon proximally to where what appeared to be the appendix was located. This was quite a dilated structure. In dissecting it we found quite a large abscess which we suctioned away. Another abscess was found on the right lower lateral peritoneal wall. A 3rd abscess was found more posterior on the peritoneal wall. All of these were broken up and suctioned away. The largest abscess was just beyond the proximal appendix and looked to be responsible for the disconnection of the proximal appendix from the next segment of appendix. It seemed this inflammatory process then went to the lower right lateral pelvic wall and was very much stuck to ther
--- NOTE | 2023-03-13 21:49 | SUR.PHASEI ---
2148: Simple mask removed.
[2023-03-13 21:57] LABS: Glucose Point of Care 209 mg/dl (65-105)
[2023-03-13] MEDS: ONDANSETRON INJ 4 MG/2 ML VIAL IV PUSH (22:38)
[2023-03-13] MEDS: LACTATED RINGERS 1,000 ML 100 ML IV CONT (22:42)
[2023-03-14] VITALS (8 sets, daily range): BP systolic 110–127; BP diastolic 70–80; PULSE 80–100; RESP 16–20; TEMP 36.4–36.8; O2SAT 91–99; BMI 22.8
--- NOTE | 2023-03-14 01:54 | PM.IMCN ---
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 of insulin Code(s): E11.9 - Type 2 diabetes mellitus without complications Status: Chronic (4) HTN (hypertension): Qualifiers: Hypertension type: unspecified Qualified Code(s): I10 - Essential (primary) hypertension Code(s): I10 - Essential (primary) hypertension Status: Chronic (5) CKD (chronic kidney disease): Qualifiers: Chronic kidney disease stage: stage 3 (moderate) Chronic kidney disease stage 3 subtype: unspecified whether 3a or 3b Qualified Code(s): N18.30 - Chronic kidney disease, stage 3 unspecified Code(s): N18.9 - Chronic kidney disease, unspecified Status: Chronic Plan Patient is postop open laparotomy due to ruptured appendicitis with generalized peritonitis with abscess. Postop management per Surgical Service. Patient is on Zosyn with pharmacy to dose for renal function. Patient does have chronic kidney disease but creatinine appears to be at baseline. Patient is having fair urine output. Will monitor urine output closely and monitor. Coles catheter remains in place. Postoperative pain management and nausea management per primary service. Patient does have history of COPD will continue patient's home inhalers and will initiate nebulizers if needed for shortness of breaths but currently no symptoms. Patient's blood pressure is currently stable will resume patient's home antihypertensives. The patient is already tolerating a clear liquid diet without vomiting. He does have persistent hyperglycemia and has history of uncontrolled diabetes mellitus with an A1c of 9.2. Will resume the patient's home long-acting insulin and oral medications. Will add moderate dose sliding scale insulin with Accu-Cheks a.c. HS and hypoglycemia protocol as needed. Will continue omeprazole and specially in the setting of acute stress febrile stress ulcer prophylaxis and treatment the patient has underlying GERD. Will continue patient's home antihypertensives and antianginal medications. Will repeat CBC and electrolyte panel in a.m. DVT prophylaxis per primary service. HPI Date of Consult Consult date: 03/14/23 Requesting Physician: Dav Westbrook MD Primary Care Provider: Robbin Garcia, Consult Narrative Narrative: Davis Hunter is a 77 year old male with a past medical history of uncontrolled diabetes, diabetic peripheral neuropathy, COPD, essential hypertension and coronary artery disease who presented to the clinic in [place] due to 4 days of abdominal pain. Patient had outpatient labs performed an outpatient CT which demonstrated ruptured acute appendicitis with ascites in the right pericolic gutter and inferior peritoneum with peritoneal thickening and enhancement consistent with peritonitis. CT also demonstrated large sliding hiatal hernia. Outpatient labs demonstrate white count 12.2 with 86% neutrophils. Patient denies history of kidney disease put his CMP demonstrated BUN of 23 creatinine 1.9 and glucose of 296. Patient's A1c was 9.2. The patient states that is unusual for his glucoses to be below 200. His CRP was greater than 25 and total protein was 5.7 and 2.4. The radiologist contacted the patient regarding his CT results the patient's drove him to [facility] for evaluation and treatment. Patient was taken directly to the OR by General surgery.
[2023-03-14] MEDS: PIPERACILLIN/TAZ 2.25G/NS 50ML 2.25 GM/50 ML BAG IVPB ×5 (02:16→23:56)
[2023-03-14] MEDS: ONDANSETRON INJ 4 MG/2 ML VIAL IV PUSH (02:18)
[2023-03-14] MEDS: MORPHINE SULFATE (*CRX) 2 MG/ML INJ 1 MG IV PUSH (02:18)
--- NOTE | 2023-03-14 02:28 | ADMGEN ---
This patient, Davis Hunter, was admitted to [facility] Room 324-01 via stretcher from PACU. Patient/family oriented to hospital policies and general routines including ID bracelet, bed and alarms, visiting hours, pain management, procedures, bathroom and other care routines, personal items, smoking policy, room service/diet, and visiting hours. Information on how to activate the Rapid Response Team has been discussed. Patient/Family are encouraged to report perceived risks to care and to ask questions if they do not understand what they are told or what they should do.
[2023-03-14] MEDS: MORPHINE SULFATE (*CRX) 4 MG/ML INJ 2 MG IV PUSH (05:40)
[2023-03-14 06:27] LABS: Basophils Absolute Auto 0.1 K/mm3 (0.0-0.1); Basophils Percent Auto 0.3 % (0.2-1.2); Eosinophils Percent Auto 0.1 % (0-4.4); Hematocrit 40.2 % (42.0-52.0); Hemoglobin 12.9 g/dL (14.0-18.0); Immature Granulocyte Absolute 0.14 K/mm3 (0.00-0.031); Lymphocytes Absolute Auto 0.51 K/mm3 (0.9-3.2); Lymphocytes Percent Auto 3.5 % (18.3-44.2); Mean Corpuscular HGB Conc 32.1 g/dl (32-36); Mean Corpuscular Hemoglobin 29.3 pg (26-34); Mean Corpuscular Volume 91.2 fl (80-100); Mean Platelet Volume 8.5 fl (7.4-10.4); Neutrophils Absolute Auto 12.9 K/mm3 (1.3-6.7); Neutrophils Percent Auto 88.1 % (45.5-73.1); Platelet Count Result 205 k/mm3 (150-375); Red Blood Count 4.41 M/mm3 (4.6-6.20); Red Cell Distribution Width 13.9 % (11.5-14.5); White Blood Count 14.7 K/mm3 (4.5-10.0)
[2023-03-14 06:38] LABS: Alanine Aminotransferase 15 U/L (6-50); Albumin Level 2.6 g/dL (3.5-5.1); Alkaline Phosphatase 77 U/L (38-126); Anion Gap 7 mmol/L (8-16); Aspartate Amino Transferase 20 U/L (17-59); Bilirubin,Total 0.7 mg/dL (0.2-1.3); Blood Urea Nitrogen 21 mg/dL (9-20); Calcium 7.6 mg/dL (8.4-10.2); Carbon Dioxide 22 mmol/L (22-30); Chloride 104 mmol/L (98-107); Estimated CRCL calculation 41 ml/min; Estimated Glomerular Filt Rate 53; Glucose 180 mg/dL (65-110); Potassium 3.9 mmol/L (3.4-5.0); Sodium 133 mmol/L (137-145)
[2023-03-14 08:24] LABS: Glucose Point of Care 155 mg/dl (65-105)
[2023-03-14] MEDS: MECLIZINE HCL 25 MG TABLET PO ×2 (08:29→17:21)
[2023-03-14] MEDS: PANTOPRAZOLE 40 MG TABLET PO (08:29)
[2023-03-14] MEDS: ENOXAPARIN 30 MG/0.3 ML SYRINGE SUB-Q (08:29)
[2023-03-14] MEDS: DULoxetine HCL 30 MG CAPSULE.DR PO (08:29)
[2023-03-14] MEDS: HYDROcodone/acetaminophen (*CRX) 7.5-325 MG TABLET 1 TAB PO ×2 (08:29→21:19)
[2023-03-14] MEDS: METOPROLOL SUCCINATE EXT REL 50 MG TABCR 150 MG PO (08:30)
[2023-03-14] MEDS: RANOLAZINE 500 MG TAB.ER.12H PO ×2 (08:43→21:14)
[2023-03-14] MEDS: LACTATED RINGERS 1,000 ML 100 ML IV CONT (08:48)
[2023-03-14] MEDS: FLUTICASONE/SALMETEROL 115-21 MCG INHALER 1 PUFF 2 PUFF INHALATION ×2 (09:05→22:10)
[2023-03-14 11:40] LABS: Glucose Point of Care 255 mg/dl (65-105)
[2023-03-14] MEDS: KCL 20MEQ/0.9% SOD CHL 1,000 ML 100 ML IV CONT (13:54)
[2023-03-14] MEDS: HYDROcodone/acetaminophen (*CRX) 5-325 MG TABLET 1 TAB PO (15:04)
--- NOTE | 2023-03-14 15:39 | PM.IMPN ---
Progress Note: A&P Assessment and Plan (1) Acute appendicitis with rupture: Code(s): K35.32 - Acute appendicitis with perforation, localized peritonitis, and gangrene, without abscess Status: Acute Assessment and Plan: status post open laparotomy managed by General surgery continue on IV antibiotics (2) Peritonitis (acute) generalized: Code(s): K65.0 - Generalized (acute) peritonitis Status: Acute Assessment and Plan: see 1. (3) Type 2 diabetes mellitus: Qualifiers: Diabetes mellitus long-term insulin use: with joint terminal attack controller use Diabetes mellitus complication status: without complication Qualified Code(s): E11.9 - Type 2 diabetes mellitus without complications; Z79.4 - terminal operator (current) use of insulin Code(s): E11.9 - Type 2 diabetes mellitus without complications Status: Chronic Assessment and Plan: ACHS fingerstick glucose With moderate dose SSI (4) HTN (hypertension): Qualifiers: Hypertension type: unspecified Qualified Code(s): I10 - Essential (primary) hypertension Code(s): I10 - Essential (primary) hypertension Status: Chronic Assessment and Plan: blood pressure reviewed 03/14, stable without the need for immediate intervention (5) CKD (chronic kidney disease): Qualifiers: Chronic kidney disease stage: stage 3 (moderate) Chronic kidney disease stage 3 subtype: unspecified whether 3a or 3b Qualified Code(s): N18.30 - Chronic kidney disease, stage 3 unspecified Code(s): N18.9 - Chronic kidney disease, unspecified Status: Chronic Assessment and Plan: baseline estimated GFR 30s-40s range (6) Hyponatremia: Code(s): E87.1 - Hypo-osmolality and hyponatremia Status: Acute Assessment and Plan: mild hyponatremia sodium 133 likely related to acute stress / infection, continue to monitor. If sodium continues to decrease will need to add on urine sodium, urine creatinine, urine urea. If decreases rapidly, consider Nephrology consult. Plan Patient is postop open laparotomy due to ruptured appendicitis with generalized peritonitis with abscess. Postop management per Surgical Service. Patient is on Zosyn with pharmacy to dose for renal function. Patient does have chronic kidney disease but creatinine appears to be at baseline. Patient is having fair urine output. Will monitor urine output closely and monitor. Coles catheter remains in place. Postoperative pain management and nausea management per primary service. Patient does have history of COPD will continue patient's home inhalers and will initiate nebulizers if needed for shortness of breaths but currently no symptoms. Patient's blood pressure is currently stable will resume patient's home antihypertensives. The patient is already tolerating a clear liquid diet without vomiting. He does have persistent hyperglycemia and has history of uncontrolled diabetes mellitus with an A1c of 9.2. Will resume the patient's home long-acting insulin and oral medications. Will add moderate dose sliding scale insulin with Accu-Cheks a.c. HS and hypoglycemia protocol as needed. Will continue omeprazole and specially in the setting of acute stress febrile stress ulcer prophylaxis and treatment the patient has underlying GERD. Will continue patient's home antihypertensives and antianginal medications. Time Spent With Patient Time with patient: 15 - 25 minutes Subjective Date/time seen: 03/14/23 15:50 Interval history: 03/13 Hospitalist Consult Note: Davis Hunter is a 77 year old male with a past medical history of uncontrolled diabetes, diabetic peripheral neuropathy, COPD, essential hypertension and coronary artery disease who presented to the clinic in [place] due to 4 days of abdominal pain.? Patient had outpatient labs performed an outpatient CT which demonstrated ruptured acute appendicitis with ascites in the right pericolic gutter an
--- NOTE | 2023-03-14 16:50 | PM.PNGS ---
Progress Note: A&P Assessment and Plan (1) Acute appendicitis with rupture: Code(s): K35.32 - Acute appendicitis with perforation, localized peritonitis, and gangrene, without abscess Status: Acute Assessment and Plan: Status post difficult appendectomy with breakdown and drainage of intra-abdominal abscesses. He is still very uncomfortable and has severe pain when tries to move. I do not hear any bowel sounds today. Will keep him on clear liquids. Labs and vital signs look good. Continue Zosyn IV antibiotics (2) Peritonitis (acute) generalized: Code(s): K65.0 - Generalized (acute) peritonitis Status: Acute Assessment and Plan: Improving but still quite a bit of abdominal pain (3) CKD (chronic kidney disease): Qualifiers: Chronic kidney disease stage: stage 3 (moderate) Chronic kidney disease stage 3 subtype: unspecified whether 3a or 3b Qualified Code(s): N18.30 - Chronic kidney disease, stage 3 unspecified Code(s): N18.9 - Chronic kidney disease, unspecified Status: Chronic Assessment and Plan: Typical creatinine is 1.8-2.0. His is down to 1.3 today. Continue to monitor closely. Hospitalist consultation appreciated. Subjective Subjective Date/Time Seen: 03/14/23 16:50 Post Op day: 1 Patient reports: still having pain (Incisional and right lower quadrant pain), no flatus, no bowel movement and afebrile Interval history: Patient reluctant to take pain medications as it has made him hallucinate and alter his mental status in the past. His is present this morning and also prefers that he avoid narcotics unless absolutely necessary. Exam Const: General: no acute distress, awake and uncomfortable GI: Inspection: non-distended and incision (Dressing dry and intact, serosanguineous drain output) GI Palp: Yes abdominal tenderness (Diffuse, extremely painful when changes position), Yes Soft to palpation, Yes Tenderness to palpation present (GI), No Hernia present and No Palpable mass present Auscultation: absent bowel sounds Objective Data Vital Signs Vital Signs: Vital Signs - 24 hr 03/13/23 16:52 03/13/23 17:36 03/13/23 21:00 Temperature 36.7 C 36.8 C Pulse Rate 99 97 84 Respiratory Rate 19 15 16 Blood Pressure 148/92 H 121/74 Pulse Oximetry 99 99 98 Oxygen Delivery Room Air Simple Face Mask Oxygen Flow Rate 6 03/13/23 21:15 03/13/23 21:30 03/13/23 21:40 Temperature Pulse Rate 88 88 92 Respiratory Rate 16 14 18 Blood Pressure 126/69 129/77 138/77 Pulse Oximetry 99 99 99 Oxygen Delivery Room Air Simple Face Mask Simple Face Mask Oxygen Flow Rate 8 8 03/13/23 21:45 03/13/23 22:00 03/13/23 22:15 Temperature Pulse Rate 89 91 90 Respiratory Rate 13 15 15 Blood Pressure 141/80 H 137/78 129/78 Pulse Oximetry 99 91 92 Oxygen Delivery Simple Face Mask Room Air Room Air Oxygen Flow Rate 8 03/13/23 22:50 03/13/23 22:43 03/13/23 22:58 Temperature 36.6 C 36.4 C Pulse Rate 89 91 Respiratory Rate 16 18 Blood Pressure 106/72 108/73 Pulse Oximetry 96 94 Oxygen Delivery Room Air Oxygen Flow Rate 03/13/23 23:25 03/14/23 00:06 03/14/23 04:06 Temperature 36.4 C 36.4 C 36.5 C Pulse Rate 90 90 92 Respiratory Rate 20 20 20 Blood Pressure 116/74 110/72 111/71 Pulse Oximetry 95 96 96 Oxygen Delivery Oxygen Flow Rate 03/14/23 08:30 03/14/23 09:10 03/14/23 08:00 Temperature 36.4 C Pulse Rate 80 100 Respiratory Rate 16 Blood Pressure 113/70 Pulse Oximetry 94 98 Oxygen Delivery Room Air Oxygen Flow Rate 03/14/23 08:30 Temperature Pulse Rate Respiratory Rate Blood Pressure Pulse Oximetry Oxygen Delivery Room Air Oxygen Flow Rate Intake/Output Intake/Output: Intake & Output 03/11/23 03/12/23 03/13/23 03/14/23 23:59 23:59 23:59 23:59 Intake Total 350 1690 Output Total 120 475 Balance 230 1215 Meds/Results Medications: Active Medications Ge
[2023-03-14 17:05] LABS: Glucose Point of Care 230 mg/dl (65-105)
[2023-03-14] MEDS: INSULIN ASPART (*BKC) 100 UNITS/ML SUB-Q ×2 (17:22→21:16)
[2023-03-14] MEDS: EMPAGLIFLOZIN 10 MG TABLET 5 MG BY MOUTH (17:29)
[2023-03-14 20:21] LABS: Glucose Point of Care 207 mg/dl (65-105)
[2023-03-14] MEDS: METOPROLOL SUCCINATE EXT REL 100 MG TABCR PO (21:14)
[2023-03-14] MEDS: ATORVASTATIN 20 MG TABLET PO (21:15)
[2023-03-14] MEDS: INSULIN GLARGINE (*BKC) 100 UNITS/ML 15 UNITS SUB-Q (21:16)
[2023-03-15] VITALS (8 sets, daily range): BP systolic 98–127; BP diastolic 57–71; PULSE 88–100; RESP 16–20; TEMP 36.1–37; O2SAT 90–97
[2023-03-15] MEDS: KCL 20MEQ/0.9% SOD CHL 1,000 ML 100 ML IV CONT (00:04)
[2023-03-15] MEDS: PIPERACILLIN/TAZ 2.25G/NS 50ML 2.25 GM/50 ML BAG IVPB ×4 (05:41→22:48)
[2023-03-15] MEDS: HYDROcodone/acetaminophen (*CRX) 7.5-325 MG TABLET 1 TAB PO (05:41)
[2023-03-15 06:26] LABS: Hematocrit 39.3 % (42.0-52.0); Hemoglobin 12.3 g/dL (14.0-18.0); Mean Corpuscular HGB Conc 31.3 g/dl (32-36); Mean Corpuscular Hemoglobin 29.4 pg (26-34); Mean Platelet Volume 8.4 fl (7.4-10.4); Platelet Count Result 204 k/mm3 (150-375); Red Blood Count 4.18 M/mm3 (4.6-6.20); Red Cell Distribution Width 14.2 % (11.5-14.5); White Blood Count 13.2 K/mm3 (4.5-10.0)
[2023-03-15 06:41] LABS: Anion Gap 8 mmol/L (8-16); Blood Urea Nitrogen 17 mg/dL (9-20); Calcium 7.6 mg/dL (8.4-10.2); Carbon Dioxide 22 mmol/L (22-30); Chloride 108 mmol/L (98-107); Estimated CRCL calculation 36 ml/min; Estimated Glomerular Filt Rate 45; Glucose 138 mg/dL (65-110); Sodium 138 mmol/L (137-145)
[2023-03-15] MEDS: METOPROLOL SUCCINATE EXT REL 50 MG TABCR 150 MG PO (09:25)
[2023-03-15] MEDS: DULoxetine HCL 30 MG CAPSULE.DR PO (09:25)
[2023-03-15] MEDS: RANOLAZINE 500 MG TAB.ER.12H PO ×2 (09:26→20:49)
[2023-03-15] MEDS: MECLIZINE HCL 25 MG TABLET PO ×2 (09:26→17:09)
[2023-03-15] MEDS: PANTOPRAZOLE 40 MG TABLET PO (09:26)
[2023-03-15] MEDS: ENOXAPARIN 40 MG/0.4 ML SYRINGE SUB-Q (09:29)
[2023-03-15] MEDS: FLUTICASONE/SALMETEROL 115-21 MCG INHALER 1 PUFF 2 PUFF INHALATION ×2 (10:34→20:33)
[2023-03-15 11:37] LABS: Glucose Point of Care 151 mg/dl (65-105)
[2023-03-15] MEDS: HYDROcodone/acetaminophen (*CRX) 5-325 MG TABLET 1 TAB PO (13:00)
--- NOTE | 2023-03-15 15:10 | PM.PNGS ---
Progress Note: A&P Assessment and Plan (1) Acute appendicitis with rupture: Code(s): K35.32 - Acute appendicitis with perforation, localized peritonitis, and gangrene, without abscess Status: Acute Assessment and Plan: Doing well after attempted laparoscopic appendectomy converted to open appendectomy with drainage abdominal abscesses. Tolerating clear liquids well. Will advance to fulls today. Wound healing well and having less pain. (2) Peritonitis (acute) generalized: Code(s): K65.0 - Generalized (acute) peritonitis Status: Acute Assessment and Plan: Improved, continue Zosyn (3) CKD (chronic kidney disease): Qualifiers: Chronic kidney disease stage: stage 3 (moderate) Chronic kidney disease stage 3 subtype: unspecified whether 3a or 3b Qualified Code(s): N18.30 - Chronic kidney disease, stage 3 unspecified Code(s): N18.9 - Chronic kidney disease, unspecified Status: Chronic Assessment and Plan: Creatinine 1.5 today, still below baseline Subjective Subjective Date/Time Seen: 03/15/23 15:10 Post Op day: 2 Patient reports: feels better, pain is less, tolerating liquids well, no bowel movement and afebrile Exam Const: General: comfortable, alert and awake GI: Inspection: non-distended and incision (Healing well) GI Palp: Yes Soft to palpation and Yes Tenderness to palpation present (GI) Auscultation: Hypoactive bowel sounds present Objective Data Vital Signs Vital Signs: Vital Signs - 24 hr 03/14/23 16:00 03/14/23 21:14 03/14/23 20:00 Temperature 36.6 C 36.8 C Pulse Rate 93 96 100 Respiratory Rate 18 20 Blood Pressure 110/74 127/80 Pulse Oximetry 99 91 Oxygen Delivery 03/14/23 21:20 03/15/23 00:00 03/15/23 04:00 Temperature 37.0 C 36.5 C Pulse Rate 100 100 Respiratory Rate 18 18 Blood Pressure 111/66 127/71 Pulse Oximetry 90 90 Oxygen Delivery Room Air 03/15/23 06:10 03/15/23 09:25 03/15/23 08:00 Temperature 37.0 C 36.1 C L Pulse Rate 100 88 94 Respiratory Rate 18 20 Blood Pressure 111/66 114/66 Pulse Oximetry 90 97 Oxygen Delivery 03/15/23 09:30 Temperature Pulse Rate Respiratory Rate Blood Pressure Pulse Oximetry Oxygen Delivery Room Air Intake/Output Intake/Output: Intake & Output 03/12/23 03/13/23 03/14/23 03/15/23 23:59 23:59 23:59 23:59 Intake Total 350 3630 980 Output Total 120 1255 632 Balance 230 4890 438 Meds/Results Medications: Active Medications Generic Name Dose Route Start Last Admin Trade Name Freq PRN Reason Stop Dose Admin Acetaminophen 500 mg 03/13/23 22:21 Acetaminophen 500 Mg Tablet PO Q6H PRN Mild Pain (1-3) or Fever Hydrocodone Bitart/Acetaminophen 1 tab 03/13/23 22:21 03/15/23 13:00 Hydrocodone/Acetaminophen (*Crx) 5-325 Mg Tablet PO 1 tab Q4H PRN Administration Pain Rated 4-6 Hydrocodone Bitart/Acetaminophen 1 tab 03/13/23 22:21 03/15/23 05:41 Hydrocodone/Acetaminophen (*Crx) 7.5-325 Mg Tablet PO 1 tab Q4H PRN Administration Pain Rated 7-10 Albuterol 2.5 mg 03/14/23 03:34 Albuterol Sulfate Neb 2.5 Mg/3 Ml Inh INHALATION Q6HRT PRN Shortness Of Breath Atorvastatin Calcium 20 mg 03/14/23 21:00 03/14/23 21:15 Atorvastatin 20 Mg Tablet PO 20 mg HS ELEAZAR Administration Dextrose 12.5 gm 03/14/23 00:53 Dextrose 50% 25 Gm/50 Ml Syringe IV PUSH PRN PRN Hypoglycemia Protocol Duloxetine HCl 30 mg 03/14/23 09:00 03/15/23 09:25 Duloxetine Hcl 30 Mg Capsule.Dr PO 30 mg DAILY ELEAZAR Administration Empagliflozin 5 mg 03/14/23 17:00 03/14/23 17:29 Empagliflozin 10 Mg Tablet BY MOUTH 5 mg 1700 ELEAZAR Administration Enoxaparin Sodium 40 mg 03/15/23 09:00 03/15/23 09:29 Enoxaparin 40 Mg/0.4 Ml Syringe SUB-Q 40 mg DAILY ELEAZAR Administration Glucagon 1 mg 03/14/23 00:53 Glucagon For Inj 1 Mg Vial IM PRN PRN Hypoglycemi
--- NOTE | 2023-03-15 15:15 | PM.IMPN ---
Progress Note: A&P Assessment and Plan (1) Acute appendicitis with rupture: Code(s): K35.32 - Acute appendicitis with perforation, localized peritonitis, and gangrene, without abscess Status: Acute Assessment and Plan: status post open laparotomy managed by General surgery continue on IV antibiotics (2) Peritonitis (acute) generalized: Code(s): K65.0 - Generalized (acute) peritonitis Status: Acute Assessment and Plan: see 1. 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 Diabetes mellitus complication status: without complication Qualified Code(s): E11.9 - Type 2 diabetes mellitus without complications; Z79.4 - nursing home (current) use of insulin Code(s): E11.9 - Type 2 diabetes mellitus without complications Status: Chronic Assessment and Plan: ACHS fingerstick glucose With moderate dose SSI (4) HTN (hypertension): Qualifiers: Hypertension type: unspecified Qualified Code(s): I10 - Essential (primary) hypertension Code(s): I10 - Essential (primary) hypertension Status: Chronic Assessment and Plan: blood pressure reviewed 03/14, stable without the need for immediate intervention (5) CKD (chronic kidney disease): Qualifiers: Chronic kidney disease stage: stage 3 (moderate) Chronic kidney disease stage 3 subtype: unspecified whether 3a or 3b Qualified Code(s): N18.30 - Chronic kidney disease, stage 3 unspecified Code(s): N18.9 - Chronic kidney disease, unspecified Status: Chronic Assessment and Plan: baseline estimated GFR 30s-40s range (6) Hyponatremia: Code(s): E87.1 - Hypo-osmolality and hyponatremia Status: Acute Assessment and Plan: Sodium 138 today Plan Patient is postop open laparotomy due to ruptured appendicitis with generalized peritonitis with abscess. Postop management per Surgical Service. Patient is on Zosyn with pharmacy to dose for renal function. Patient does have chronic kidney disease but creatinine appears to be at baseline. Patient is having fair urine output. Will monitor urine output closely and monitor. Coles catheter remains in place. Postoperative pain management and nausea management per primary service. Patient does have history of COPD will continue patient's home inhalers and will initiate nebulizers if needed for shortness of breaths but currently no symptoms. Patient's blood pressure is currently stable will resume patient's home antihypertensives. The patient is already tolerating a clear liquid diet without vomiting. He does have persistent hyperglycemia and has history of uncontrolled diabetes mellitus with an A1c of 9.2. Will resume the patient's home long-acting insulin and oral medications. Will add moderate dose sliding scale insulin with Accu-Cheks a.c. HS and hypoglycemia protocol as needed. Will continue omeprazole and specially in the setting of acute stress febrile stress ulcer prophylaxis and treatment the patient has underlying GERD. Will continue patient's home antihypertensives and antianginal medications. Time Spent With Patient Time with patient: less than 15 minutes Subjective Date/time seen: 03/15/23 1030 Interval history: 03/13 Hospitalist Consult Note: Davis Hunter is a 77 year old male with a past medical history of uncontrolled diabetes, diabetic peripheral neuropathy, COPD, essential hypertension and coronary artery disease who presented to the clinic in [place] due to 4 days of abdominal pain.? Patient had outpatient labs performed an outpatient CT which demonstrated ruptured acute appendicitis with ascites in the right pericolic gutter and inferior peritoneum with peritoneal thickening and enhancement consistent with peritonitis.? CT also demonstrated large sliding hiatal hernia.? Outpatient labs demonstrate white count 12.2 with 86% neutrophils.? Ivette
[2023-03-15 16:48] LABS: Glucose Point of Care 175 mg/dl (65-105)
[2023-03-15] MEDS: EMPAGLIFLOZIN 10 MG TABLET 5 MG BY MOUTH (17:09)
[2023-03-15 20:47] LABS: Glucose Point of Care 223 mg/dl (65-105)
[2023-03-15] MEDS: INSULIN ASPART (*BKC) 100 UNITS/ML SUB-Q (20:47)
[2023-03-15] MEDS: INSULIN GLARGINE (*BKC) 100 UNITS/ML 15 UNITS SUB-Q (20:47)
[2023-03-15] MEDS: METOPROLOL SUCCINATE EXT REL 100 MG TABCR PO (20:49)
[2023-03-15] MEDS: ATORVASTATIN 20 MG TABLET PO (20:49)
[2023-03-16] VITALS (7 sets, daily range): BP systolic 114–122; BP diastolic 67–74; PULSE 80–95; RESP 16–20; TEMP 35.7–36.7; O2SAT 95–100
--- NOTE | 2023-03-16 04:10 | PC.NURSE ---
pt called to let RN know that pt called them at 0400 and thought that it was 4pm, this RN went into room and pt was confused but could tell RN where they were, and why they were here, but didn't know the time and what day it was
[2023-03-16] MEDS: PIPERACILLIN/TAZ 2.25G/NS 50ML 2.25 GM/50 ML BAG IVPB ×4 (04:33→23:24)
[2023-03-16] MEDS: KCL 20MEQ/0.9% SOD CHL 1,000 ML 100 ML IV CONT (05:50)
--- NOTE | 2023-03-16 06:28 | PM.PNGS ---
Progress Note: A&P Assessment and Plan (1) Acute appendicitis with rupture: Code(s): K35.32 - Acute appendicitis with perforation, localized peritonitis, and gangrene, without abscess Status: Acute Assessment and Plan: Tolerating liquids well. Will advance to soft diet. DC Coles. Possibly DC JORDYN drain tomorrow. Doing well. (2) Peritonitis (acute) generalized: Code(s): K65.0 - Generalized (acute) peritonitis Status: Acute Assessment and Plan: Continue IV antibiotics with Zosyn (3) CKD (chronic kidney disease): Qualifiers: Chronic kidney disease stage: stage 3 (moderate) Chronic kidney disease stage 3 subtype: unspecified whether 3a or 3b Qualified Code(s): N18.30 - Chronic kidney disease, stage 3 unspecified Code(s): N18.9 - Chronic kidney disease, unspecified Status: Chronic Assessment and Plan: Pending today's labs. Good urine output. Subjective Subjective Date/Time Seen: 03/16/23 06:28 Post Op day: 3 Patient reports: no new complaints, pain is less, tolerating liquids well, no bowel movement, afebrile and other (Trouble sleeping) Exam Const: General: comfortable, no acute distress, alert and awake GI: Inspection: non-distended and incision (Dry and healing well) GI Palp: Yes Soft to palpation, Yes Tenderness to palpation present (GI) (Minimal, appropriate tenderness), No Guarding due to palpation present (GI) and No Rebound tenderness present Auscultation: normal bowel sounds Neuro: General: no focal motor deficits Extrem: General: no calf tenderness and no edema Objective Data Vital Signs Vital Signs: Vital Signs - 24 hr 03/15/23 09:25 03/15/23 08:00 03/15/23 09:30 Temperature 36.1 C L Pulse Rate 88 94 Respiratory Rate 20 Blood Pressure 114/66 Pulse Oximetry 97 Oxygen Delivery Room Air 03/15/23 16:00 03/15/23 20:49 03/15/23 20:00 Temperature 36.3 C L 36.6 C Pulse Rate 95 95 95 Respiratory Rate 16 18 Blood Pressure 98/57 L Pulse Oximetry 94 94 Oxygen Delivery 03/16/23 00:00 Temperature 36.6 C Pulse Rate 95 Respiratory Rate 18 Blood Pressure 117/70 Pulse Oximetry 97 Oxygen Delivery Intake/Output Intake/Output: Intake & Output 03/13/23 03/14/23 03/15/23 03/16/23 23:59 23:59 23:59 23:59 Intake Total 350 3630 2370 Output Total 120 2705 657 20 Balance 230 9045 1713 -20 Meds/Results Medications: Active Medications Generic Name Dose Route Start Last Admin Trade Name Freq PRN Reason Stop Dose Admin Acetaminophen 500 mg 03/13/23 22:21 Acetaminophen 500 Mg Tablet PO Q6H PRN Mild Pain (1-3) or Fever Hydrocodone Bitart/Acetaminophen 1 tab 03/13/23 22:21 03/15/23 13:00 Hydrocodone/Acetaminophen (*Crx) 5-325 Mg Tablet PO 1 tab Q4H PRN Administration Pain Rated 4-6 Hydrocodone Bitart/Acetaminophen 1 tab 03/13/23 22:21 03/15/23 05:41 Hydrocodone/Acetaminophen (*Crx) 7.5-325 Mg Tablet PO 1 tab Q4H PRN Administration Pain Rated 7-10 Albuterol 2.5 mg 03/14/23 03:34 Albuterol Sulfate Neb 2.5 Mg/3 Ml Inh INHALATION Q6HRT PRN Shortness Of Breath Atorvastatin Calcium 20 mg 03/14/23 21:00 03/15/23 20:49 Atorvastatin 20 Mg Tablet PO 20 mg HS ELEAZAR Administration Dextrose 12.5 gm 03/14/23 00:53 Dextrose 50% 25 Gm/50 Ml Syringe IV PUSH PRN PRN Hypoglycemia Protocol Duloxetine HCl 30 mg 03/14/23 09:00 03/15/23 09:25 Duloxetine Hcl 30 Mg Capsule.Dr PO 30 mg DAILY ELEAZAR Administration Empagliflozin 5 mg 03/14/23 17:00 03/15/23 17:09 Empagliflozin 10 Mg Tablet BY MOUTH 5 mg 1700 ELEAZAR Administration Enoxaparin Sodium 40 mg 03/15/23 09:00 03/15/23 09:29 Enoxaparin 40 Mg/0.4 Ml Syringe SUB-Q 40 mg DAILY ELEAZAR Administration Glucagon 1 mg 03/14/23 00:53 Glucagon For Inj 1 Mg Vial IM PRN PRN Hypoglycemia Protocol Glucose 15 gm 03/14/23 00:53 Glucos
[2023-03-16 06:49] LABS: Hematocrit 35.6 % (42.0-52.0); Hemoglobin 11.1 g/dL (14.0-18.0); Mean Corpuscular HGB Conc 31.2 g/dl (32-36); Mean Corpuscular Hemoglobin 29.4 pg (26-34); Mean Corpuscular Volume 94.4 fl (80-100); Mean Platelet Volume 8.3 fl (7.4-10.4); Platelet Count Result 212 k/mm3 (150-375); Red Blood Count 3.77 M/mm3 (4.6-6.20); Red Cell Distribution Width 14.3 % (11.5-14.5); White Blood Count 11.3 K/mm3 (4.5-10.0)
[2023-03-16 07:07] LABS: Anion Gap 5 mmol/L (8-16); Blood Urea Nitrogen 16 mg/dL (9-20); Calcium 7.7 mg/dL (8.4-10.2); Carbon Dioxide 23 mmol/L (22-30); Chloride 109 mmol/L (98-107); Estimated CRCL calculation 33 ml/min; Estimated Glomerular Filt Rate 42; Glucose 114 mg/dL (65-110); Potassium 4.3 mmol/L (3.4-5.0); Sodium 137 mmol/L (137-145)
[2023-03-16 08:07] LABS: Glucose Point of Care 110 mg/dl (65-105)
[2023-03-16] MEDS: HYDROcodone/acetaminophen (*CRX) 7.5-325 MG TABLET 1 TAB PO (08:10)
[2023-03-16] MEDS: ENOXAPARIN 40 MG/0.4 ML SYRINGE SUB-Q (08:11)
[2023-03-16] MEDS: PANTOPRAZOLE 40 MG TABLET PO (08:11)
[2023-03-16] MEDS: DULoxetine HCL 30 MG CAPSULE.DR PO (08:11)
[2023-03-16] MEDS: RANOLAZINE 500 MG TAB.ER.12H PO ×2 (08:11→20:51)
[2023-03-16] MEDS: MECLIZINE HCL 25 MG TABLET PO ×2 (08:11→16:44)
[2023-03-16] MEDS: METOPROLOL SUCCINATE EXT REL 50 MG TABCR 150 MG PO (08:12)
--- NOTE | 2023-03-16 08:22 | PM.IMPN ---
Progress Note: A&P Assessment and Plan (1) Acute appendicitis with rupture: Code(s): K35.32 - Acute appendicitis with perforation, localized peritonitis, and gangrene, without abscess Status: Acute Assessment and Plan: status post open laparotomy managed by General surgery continue on IV antibiotics (2) Peritonitis (acute) generalized: Code(s): K65.0 - Generalized (acute) peritonitis Status: Acute Assessment and Plan: see 1. (3) Type 2 diabetes mellitus: Qualifiers: Diabetes mellitus prison insulin use: with intermission coordinator use Diabetes mellitus complication status: without complication Qualified Code(s): E11.9 - Type 2 diabetes mellitus without complications; Z79.4 - halfway (current) use of insulin Code(s): E11.9 - Type 2 diabetes mellitus without complications Status: Chronic Assessment and Plan: ACHS fingerstick glucose With moderate dose SSI (4) HTN (hypertension): Qualifiers: Hypertension type: unspecified Qualified Code(s): I10 - Essential (primary) hypertension Code(s): I10 - Essential (primary) hypertension Status: Chronic Assessment and Plan: Stable on metoprolol-home dose (5) CKD (chronic kidney disease): Qualifiers: Chronic kidney disease stage: stage 3 (moderate) Chronic kidney disease stage 3 subtype: unspecified whether 3a or 3b Qualified Code(s): N18.30 - Chronic kidney disease, stage 3 unspecified Code(s): N18.9 - Chronic kidney disease, unspecified Status: Chronic Assessment and Plan: baseline estimated GFR 30s-40s range (6) Hyponatremia: Code(s): E87.1 - Hypo-osmolality and hyponatremia Status: Acute Assessment and Plan: Sodium 137 today Plan Patient has improved pain and walked to the bathroom with a walker and sat in the chair. Will order PT/OT. Diet was increased to GI soft and is tolerating well. Still has some mild confusion after pain mediations. Is passing gas but has not had a BM. Zosyn continues per surgery. Time Spent With Patient Time with patient: 15 - 25 minutes Subjective Date/time seen: 03/16/23 08:22 Interval history: 03/13 Hospitalist Consult Note: Davis Hunter is a 77 year old male with a past medical history of uncontrolled diabetes, diabetic peripheral neuropathy, COPD, essential hypertension and coronary artery disease who presented to the clinic in [place] due to 4 days of abdominal pain.? Patient had outpatient labs performed an outpatient CT which demonstrated ruptured acute appendicitis with ascites in the right pericolic gutter and inferior peritoneum with peritoneal thickening and enhancement consistent with peritonitis.? CT also demonstrated large sliding hiatal hernia.? Outpatient labs demonstrate white count 12.2 with 86% neutrophils.? Patient denies history of kidney disease put his CMP demonstrated BUN of 23 creatinine 1.9 and glucose of 296.? Patient's A1c was 9.2.? The patient states that is unusual for his glucoses to be below 200.? His CRP was greater than 25 and total protein was 5.7 and 2.4.? The radiologist contacted the patient regarding his CT results the patient's drove him to [facility] for evaluation and treatment.? Patient was taken directly to the OR by General surgery.? Patient had laparoscopic appendectomy that was converted to open appendectomy during procedure the patient was noted to have ruptured appendicitis with generalized peritonitis and multiple intra-abdominal abscesses. Patient had a Demarcus drain placed.? Since returning from the ER the patient denies having any nausea.? He reports that his pain is moderate in relatively controlled.? He has tolerated Jell-O. Patient seems somewhat recalcitrant to give much information regarding his symptoms prior to admission.? He reports he was having symptoms ?of appendicitis?.? He has evidently having some right lower quadrant abdominal pain and according
[2023-03-16] MEDS: HYDROcodone/acetaminophen (*CRX) 5-325 MG TABLET 1 TAB PO (14:41)
--- NOTE | 2023-03-16 14:56 | PCRCNOTE ---
Window of time for administration has passed. See next scheduled administration.
[2023-03-16 16:37] LABS: Glucose Point of Care 192 mg/dl (65-105)
[2023-03-16] MEDS: EMPAGLIFLOZIN 10 MG TABLET 5 MG BY MOUTH (16:45)
[2023-03-16] MEDS: INSULIN GLARGINE (*BKC) 100 UNITS/ML 15 UNITS SUB-Q (20:50)
[2023-03-16] MEDS: METOPROLOL SUCCINATE EXT REL 100 MG TABCR PO (20:51)
[2023-03-16] MEDS: ATORVASTATIN 20 MG TABLET PO (20:51)
[2023-03-16] MEDS: INSULIN ASPART (*BKC) 100 UNITS/ML SUB-Q (20:51)
[2023-03-16] MEDS: FLUTICASONE/SALMETEROL 115-21 MCG INHALER 1 PUFF 2 PUFF INHALATION (21:49)
[2023-03-16 22:26] LABS: Glucose Point of Care 259 mg/dl (65-105)
[2023-03-17 05:03] LABS: Glucose Point of Care 169 mg/dl (65-105)
[2023-03-17] MEDS: PIPERACILLIN/TAZ 2.25G/NS 50ML 2.25 GM/50 ML BAG IVPB ×4 (05:16→23:45)
[2023-03-17 06:00] VITALS: BP 118/71; PULSE 80; RESP 18; TEMP 35.8; O2SAT 98
[2023-03-17 06:57] LABS: Hematocrit 35.5 % (42.0-52.0); Hemoglobin 11.4 g/dL (14.0-18.0); Mean Corpuscular HGB Conc 32.1 g/dl (32-36); Mean Corpuscular Hemoglobin 29.8 pg (26-34); Mean Corpuscular Volume 92.9 fl (80-100); Mean Platelet Volume 8.4 fl (7.4-10.4); Platelet Count Result 212 k/mm3 (150-375); Red Blood Count 3.82 M/mm3 (4.6-6.20); Red Cell Distribution Width 14.2 % (11.5-14.5); White Blood Count 8.8 K/mm3 (4.5-10.0)
[2023-03-17 07:08] LABS: Anion Gap 3 mmol/L (8-16); Blood Urea Nitrogen 18 mg/dL (9-20); Carbon Dioxide 24 mmol/L (22-30); Chloride 109 mmol/L (98-107); Estimated CRCL calculation 38 ml/min; Estimated Glomerular Filt Rate 49; Glucose 121 mg/dL (65-110); Potassium 4.8 mmol/L (3.4-5.0); Sodium 136 mmol/L (137-145)
[2023-03-17 07:37] LABS: Glucose Point of Care 154 mg/dl (65-105)
--- NOTE | 2023-03-17 09:30 | PM.PNGS ---
Progress Note: A&P Assessment and Plan (1) Acute appendicitis with rupture: Code(s): K35.32 - Acute appendicitis with perforation, localized peritonitis, and gangrene, without abscess Status: Acute Assessment and Plan: Bowel function has returned. Patient tolerating solid food. JORDYN drain will be removed today. Continue antibiotics intravenously for 1-2 more days. Continue PT and OT. Patient plans to return home with his after discharge. (2) Peritonitis (acute) generalized: Code(s): K65.0 - Generalized (acute) peritonitis Status: Acute Assessment and Plan: Improving. Continue IV antibiotics (3) CKD (chronic kidney disease): Qualifiers: Chronic kidney disease stage: stage 3 (moderate) Chronic kidney disease stage 3 subtype: unspecified whether 3a or 3b Qualified Code(s): N18.30 - Chronic kidney disease, stage 3 unspecified Code(s): N18.9 - Chronic kidney disease, unspecified Status: Chronic Assessment and Plan: Creatinine remains lower than baseline Subjective Subjective Date/Time Seen: 03/17/23 09:30 Post Op day: 4 Patient reports: pain is less, tolerating a regular diet, no bowel movement and afebrile Interval history: Complains that his days and nights are backwards. He thinks it is night time and it is actually daytime and vice versa. No complaints of pain or feelings of nausea. Exam Const: General: comfortable, no acute distress, alert and awake Nutritional Appearance: thin GI: Inspection: non-distended, incision (All are healing well) and other (JORDYN output serous and volume decreasing significantly.) GI Palp: Yes Soft to palpation and Yes Tenderness to palpation present (GI) (Mild appropriate incisional tenderness) Auscultation: normal bowel sounds Objective Data Vital Signs Vital Signs: Vital Signs - 24 hr 03/16/23 14:00 03/16/23 20:51 03/16/23 22:00 Temperature 36.7 C 35.7 C L Pulse Rate 86 88 90 Respiratory Rate 20 16 Blood Pressure 117/67 122/72 Pulse Oximetry 100 98 03/17/23 06:00 Temperature 35.8 C L Pulse Rate 80 Respiratory Rate 18 Blood Pressure 118/71 Pulse Oximetry 98 Intake/Output Intake/Output: Intake & Output 03/14/23 03/15/23 03/16/23 03/17/23 23:59 23:59 23:59 23:59 Intake Total 3630 2370 1510 300 Output Total 5731 875 617 710 Balance 2375 1713 820 -410 Meds/Results Medications: Active Medications Generic Name Dose Route Start Last Admin Trade Name Freq PRN Reason Stop Dose Admin Acetaminophen 500 mg 03/13/23 22:21 Acetaminophen 500 Mg Tablet PO Q6H PRN Mild Pain (1-3) or Fever Hydrocodone Bitart/Acetaminophen 1 tab 03/13/23 22:21 03/16/23 14:41 Hydrocodone/Acetaminophen (*Crx) 5-325 Mg Tablet PO 1 tab Q4H PRN Administration Pain Rated 4-6 Hydrocodone Bitart/Acetaminophen 1 tab 03/13/23 22:21 03/16/23 08:10 Hydrocodone/Acetaminophen (*Crx) 7.5-325 Mg Tablet PO 1 tab Q4H PRN Administration Pain Rated 7-10 Albuterol 2.5 mg 03/14/23 03:34 Albuterol Sulfate Neb 2.5 Mg/3 Ml Inh INHALATION Q6HRT PRN Shortness Of Breath Atorvastatin Calcium 20 mg 03/14/23 21:00 03/16/23 20:51 Atorvastatin 20 Mg Tablet PO 20 mg HS ELEAZAR Administration Dextrose 12.5 gm 03/14/23 00:53 Dextrose 50% 25 Gm/50 Ml Syringe IV PUSH PRN PRN Hypoglycemia Protocol Duloxetine HCl 30 mg 03/14/23 09:00 03/16/23 08:11 Duloxetine Hcl 30 Mg Capsule.Dr PO 30 mg DAILY ELEAZAR Administration Empagliflozin 5 mg 03/14/23 17:00 03/16/23 16:45 Empagliflozin 10 Mg Tablet BY MOUTH 5 mg 1700 ELEAZAR Administration Enoxaparin Sodium 40 mg 03/15/23 09:00 03/16/23 08:11 Enoxaparin 40 Mg/0.4 Ml Syringe SUB-Q 40 mg DAILY ELEAZAR Administration Glucagon 1 mg 03/14/23 00:53 Glucagon For Inj 1 Mg Vial IM PRN PRN Hypoglycemia Protocol Glucose 15 gm 03/14/23 00:53 Glucose Oral Gel 15 Gm Of
[2023-03-17] MEDS: DULoxetine HCL 30 MG CAPSULE.DR PO (09:58)
[2023-03-17 09:59] VITALS: PULSE 89
[2023-03-17] MEDS: PANTOPRAZOLE 40 MG TABLET PO (09:59)
[2023-03-17] MEDS: METOPROLOL SUCCINATE EXT REL 50 MG TABCR 150 MG PO (09:59)
[2023-03-17] MEDS: MECLIZINE HCL 25 MG TABLET PO ×2 (10:02→16:26)
[2023-03-17] MEDS: RANOLAZINE 500 MG TAB.ER.12H PO ×2 (10:02→21:22)
[2023-03-17] MEDS: ENOXAPARIN 40 MG/0.4 ML SYRINGE SUB-Q (10:03)
--- NOTE | 2023-03-17 10:14 | PCOTNOTE ---
The patient treatment was not able to be completed. Patient is with PT. Will plan to continue treatment per plan of care.
[2023-03-17 10:48] VITALS: O2SAT 98
[2023-03-17] MEDS: FLUTICASONE/SALMETEROL 115-21 MCG INHALER 1 PUFF 2 PUFF INHALATION ×2 (10:48→21:03)
[2023-03-17 11:21] LABS: Glucose Point of Care 151 mg/dl (65-105)
[2023-03-17] MEDS: ACETAMINOPHEN 500 MG TABLET PO ×2 (12:18→21:22)
--- NOTE | 2023-03-17 12:44 | PM.IMPN ---
Progress Note: A&P Assessment and Plan (1) Acute appendicitis with rupture: Code(s): K35.32 - Acute appendicitis with perforation, localized peritonitis, and gangrene, without abscess Status: Acute Assessment and Plan: status post open laparotomy managed by General surgery continue on IV antibiotics (2) Peritonitis (acute) generalized: Code(s): K65.0 - Generalized (acute) peritonitis Status: Acute Assessment and Plan: see 1. (3) Type 2 diabetes mellitus: Qualifiers: Diabetes mellitus residential insulin use: with rat exterminator use Diabetes mellitus complication status: without complication Qualified Code(s): E11.9 - Type 2 diabetes mellitus without complications; Z79.4 - custodial (current) use of insulin Code(s): E11.9 - Type 2 diabetes mellitus without complications Status: Chronic Assessment and Plan: ACHS fingerstick glucose With moderate dose SSI (4) HTN (hypertension): Qualifiers: Hypertension type: unspecified Qualified Code(s): I10 - Essential (primary) hypertension Code(s): I10 - Essential (primary) hypertension Status: Chronic Assessment and Plan: Stable on metoprolol-home dose (5) CKD (chronic kidney disease): Qualifiers: Chronic kidney disease stage: stage 3 (moderate) Chronic kidney disease stage 3 subtype: unspecified whether 3a or 3b Qualified Code(s): N18.30 - Chronic kidney disease, stage 3 unspecified Code(s): N18.9 - Chronic kidney disease, unspecified Status: Chronic Assessment and Plan: baseline estimated GFR 30s-40s range (6) Hyponatremia: Code(s): E87.1 - Hypo-osmolality and hyponatremia Status: Acute Assessment and Plan: Sodium 137 today Plan Patient has improved pain and walked to the bathroom with a walker and sat in the chair. Diet was increased to GI soft and is tolerating well. Still has some mild confusion after pain mediations. Is passing gas but has not had a BM. Zosyn continues per surgery. Time Spent With Patient Time with patient: 15 - 25 minutes Subjective Date/time seen: 03/17/23 12:44 Interval history: 03/13 Hospitalist Consult Note: Davis Hunter is a 77 year old male with a past medical history of uncontrolled diabetes, diabetic peripheral neuropathy, COPD, essential hypertension and coronary artery disease who presented to the clinic in [place] due to 4 days of abdominal pain.? Patient had outpatient labs performed an outpatient CT which demonstrated ruptured acute appendicitis with ascites in the right pericolic gutter and inferior peritoneum with peritoneal thickening and enhancement consistent with peritonitis.? CT also demonstrated large sliding hiatal hernia.? Outpatient labs demonstrate white count 12.2 with 86% neutrophils.? Patient denies history of kidney disease put his CMP demonstrated BUN of 23 creatinine 1.9 and glucose of 296.? Patient's A1c was 9.2.? The patient states that is unusual for his glucoses to be below 200.? His CRP was greater than 25 and total protein was 5.7 and 2.4.? The radiologist contacted the patient regarding his CT results the patient's drove him to [facility] ER for evaluation and treatment.? Patient was taken directly to the OR by General surgery.? Patient had laparoscopic appendectomy that was converted to open appendectomy during procedure the patient was noted to have ruptured appendicitis with generalized peritonitis and multiple intra-abdominal abscesses. Patient had a Demarcus drain placed.? Since returning from the ER the patient denies having any nausea.? He reports that his pain is moderate in relatively controlled.? He has tolerated Jell-O. Patient seems somewhat recalcitrant to give much information regarding his symptoms prior to admission.? He reports he was having symptoms ?of appendicitis?.? He has evidently having some right lower quadrant abdominal pain and according to the H&P this
[2023-03-17 14:00] VITALS: BP 117/66; PULSE 86; RESP 16; TEMP 36.3; O2SAT 96
[2023-03-17] MEDS: EMPAGLIFLOZIN 10 MG TABLET 5 MG BY MOUTH (16:26)
[2023-03-17] MEDS: INSULIN ASPART (*BKC) 100 UNITS/ML SUB-Q (16:31)
[2023-03-17 16:36] LABS: Glucose Point of Care 228 mg/dl (65-105)
[2023-03-17 20:42] LABS: Glucose Point of Care 192 mg/dl (65-105)
[2023-03-17] MEDS: METOPROLOL SUCCINATE EXT REL 100 MG TABCR PO (21:22)
[2023-03-17] MEDS: ATORVASTATIN 20 MG TABLET PO (21:22)
[2023-03-17] MEDS: INSULIN GLARGINE (*BKC) 100 UNITS/ML 15 UNITS SUB-Q (21:22)
[2023-03-17 21:39] VITALS: BP 124/78; PULSE 83; RESP 19; TEMP 36.6; O2SAT 98
[2023-03-18] MEDS: PIPERACILLIN/TAZ 2.25G/NS 50ML 2.25 GM/50 ML BAG IVPB ×4 (05:25→22:01)
[2023-03-18] MEDS: ACETAMINOPHEN 500 MG TABLET PO ×3 (05:32→16:33)
[2023-03-18 06:00] VITALS: BP 123/75; PULSE 79; RESP 15; TEMP 36.2; O2SAT 98
[2023-03-18 07:27] LABS: Glucose Point of Care 101 mg/dl (65-105)
[2023-03-18] MEDS: FLUTICASONE/SALMETEROL 115-21 MCG INHALER 1 PUFF 2 PUFF INHALATION ×2 (09:00→22:01)
[2023-03-18] MEDS: ENOXAPARIN 40 MG/0.4 ML SYRINGE SUB-Q (09:48)
--- NOTE | 2023-03-18 09:48 | PM.IMPN ---
Progress Note: A&P Assessment and Plan (1) Acute appendicitis with rupture: Code(s): K35.32 - Acute appendicitis with perforation, localized peritonitis, and gangrene, without abscess Status: Acute Assessment and Plan: status post open laparotomy managed by General surgery continue on IV antibiotics 03/18: Surgery transitioning to oral antibiotics (2) Peritonitis (acute) generalized: Code(s): K65.0 - Generalized (acute) peritonitis Status: Resolved Assessment and Plan: see 1. (3) Type 2 diabetes mellitus: Qualifiers: Diabetes mellitus assisted insulin use: with intermediate manager use Diabetes mellitus complication status: without complication Qualified Code(s): E11.9 - Type 2 diabetes mellitus without complications; Z79.4 - penitentiary (current) use of insulin Code(s): E11.9 - Type 2 diabetes mellitus without complications Status: Chronic Assessment and Plan: ACHS fingerstick glucose With moderate dose SSI (4) HTN (hypertension): Qualifiers: Hypertension type: unspecified Qualified Code(s): I10 - Essential (primary) hypertension Code(s): I10 - Essential (primary) hypertension Status: Chronic Assessment and Plan: Stable on metoprolol-home dose (5) CKD (chronic kidney disease): Qualifiers: Chronic kidney disease stage: stage 3 (moderate) Chronic kidney disease stage 3 subtype: unspecified whether 3a or 3b Qualified Code(s): N18.30 - Chronic kidney disease, stage 3 unspecified Code(s): N18.9 - Chronic kidney disease, unspecified Status: Chronic Assessment and Plan: baseline estimated GFR 30s-40s range 03/18: Estimated GFR 49 (6) Hyponatremia: Code(s): E87.1 - Hypo-osmolality and hyponatremia Status: Acute Assessment and Plan: 03/18: Sodium 136 today Plan No BM yet, passing gas and no N/V, tolerating diet well. Time Spent With Patient Time with patient: 15 - 25 minutes Subjective Date/time seen: 03/18/23 09:48 Interval history: 03/13 Hospitalist Consult Note: Davis Hunter is a 77 year old male with a past medical history of uncontrolled diabetes, diabetic peripheral neuropathy, COPD, essential hypertension and coronary artery disease who presented to the clinic in [place] due to 4 days of abdominal pain.? Patient had outpatient labs performed an outpatient CT which demonstrated ruptured acute appendicitis with ascites in the right pericolic gutter and inferior peritoneum with peritoneal thickening and enhancement consistent with peritonitis.? CT also demonstrated large sliding hiatal hernia.? Outpatient labs demonstrate white count 12.2 with 86% neutrophils.? Patient denies history of kidney disease put his CMP demonstrated BUN of 23 creatinine 1.9 and glucose of 296.? Patient's A1c was 9.2.? The patient states that is unusual for his glucoses to be below 200.? His CRP was greater than 25 and total protein was 5.7 and 2.4.? The radiologist contacted the patient regarding his CT results the patient's drove him to [facility] ER for evaluation and treatment.? Patient was taken directly to the OR by General surgery.? Patient had laparoscopic appendectomy that was converted to open appendectomy during procedure the patient was noted to have ruptured appendicitis with generalized peritonitis and multiple intra-abdominal abscesses. Patient had a Demarcus drain placed.? Since returning from the ER the patient denies having any nausea.? He reports that his pain is moderate in relatively controlled.? He has tolerated Jell-O. Patient seems somewhat recalcitrant to give much information regarding his symptoms prior to admission.? He reports he was having symptoms ?of appendicitis?.? He has evidently having some right lower quadrant abdominal pain and according to the H&P this was ongoing for about 4 days.? It was accompanied by 1 episode of nonbilious vomiting.? The patient's abdominal pain is become
[2023-03-18 09:50] VITALS: PULSE 85
[2023-03-18] MEDS: METOPROLOL SUCCINATE EXT REL 50 MG TABCR 150 MG PO (09:50)
[2023-03-18] MEDS: MECLIZINE HCL 25 MG TABLET PO ×2 (09:51→16:08)
[2023-03-18] MEDS: RANOLAZINE 500 MG TAB.ER.12H PO ×2 (09:51→20:58)
[2023-03-18] MEDS: PANTOPRAZOLE 40 MG TABLET PO (09:51)
[2023-03-18] MEDS: DULoxetine HCL 30 MG CAPSULE.DR PO (09:51)
[2023-03-18 11:39] LABS: Glucose Point of Care 147 mg/dl (65-105)
--- NOTE | 2023-03-18 11:58 | PM.PNGS ---
Progress Note: A&P Assessment and Plan (1) Acute appendicitis with rupture: Code(s): K35.32 - Acute appendicitis with perforation, localized peritonitis, and gangrene, without abscess Status: Acute Assessment and Plan: Pathology pending. Patient improving almost every day. Will change to oral antibiotics. Continue ambulation. Hopefully home soon. (2) Peritonitis (acute) generalized: Code(s): K65.0 - Generalized (acute) peritonitis Status: Resolved Assessment and Plan: As above (3) CKD (chronic kidney disease): Qualifiers: Chronic kidney disease stage: stage 3 (moderate) Chronic kidney disease stage 3 subtype: unspecified whether 3a or 3b Qualified Code(s): N18.30 - Chronic kidney disease, stage 3 unspecified Code(s): N18.9 - Chronic kidney disease, unspecified Status: Chronic Assessment and Plan: Creatinine stable. Recheck again tomorrow Subjective Subjective Date/Time Seen: 03/18/23 11:58 Post Op day: 5 Patient reports: feels better, pain is less, tolerating a regular diet, no bowel movement and afebrile Exam Const: General: comfortable, alert, awake and well nourished GI: Inspection: non-distended and incision (Dry and healing well) GI Palp: Yes Soft to palpation, Yes Tenderness to palpation present (GI) (Minimal), No Guarding due to palpation present (GI), No Hernia present, No Palpable mass present and No Rebound tenderness present Auscultation: normal bowel sounds Objective Data Vital Signs Vital Signs: Vital Signs - 24 hr 03/17/23 14:00 03/17/23 21:39 03/17/23 20:00 Temperature 36.3 C L 36.6 C Pulse Rate 86 83 Respiratory Rate 16 19 Blood Pressure 117/66 124/78 Pulse Oximetry 96 98 Oxygen Delivery Room Air 03/18/23 06:00 03/18/23 09:50 Temperature 36.2 C L Pulse Rate 79 85 Respiratory Rate 15 Blood Pressure 123/75 Pulse Oximetry 98 Oxygen Delivery Intake/Output Intake/Output: Intake & Output 03/15/23 03/16/23 03/17/23 03/18/23 23:59 23:59 23:59 23:59 Intake Total 2370 1510 1390 390 Output Total 149 756 9058 Balance 1713 820 330 390 Meds/Results Medications: Active Medications Generic Name Dose Route Start Last Admin Trade Name Freq PRN Reason Stop Dose Admin Acetaminophen 500 mg 03/13/23 22:21 03/18/23 11:03 Acetaminophen 500 Mg Tablet PO 500 mg Q6H PRN Administration Mild Pain (1-3) or Fever Hydrocodone Bitart/Acetaminophen 1 tab 03/13/23 22:21 03/16/23 14:41 Hydrocodone/Acetaminophen (*Crx) 5-325 Mg Tablet PO 1 tab Q4H PRN Administration Pain Rated 4-6 Hydrocodone Bitart/Acetaminophen 1 tab 03/13/23 22:21 03/16/23 08:10 Hydrocodone/Acetaminophen (*Crx) 7.5-325 Mg Tablet PO 1 tab Q4H PRN Administration Pain Rated 7-10 Albuterol 2.5 mg 03/14/23 03:34 Albuterol Sulfate Neb 2.5 Mg/3 Ml Inh INHALATION Q6HRT PRN Shortness Of Breath Atorvastatin Calcium 20 mg 03/14/23 21:00 03/17/23 21:22 Atorvastatin 20 Mg Tablet PO 20 mg HS ELEAZAR Administration Dextrose 12.5 gm 03/14/23 00:53 Dextrose 50% 25 Gm/50 Ml Syringe IV PUSH PRN PRN Hypoglycemia Protocol Duloxetine HCl 30 mg 03/14/23 09:00 03/18/23 09:51 Duloxetine Hcl 30 Mg Capsule.Dr PO 30 mg DAILY ELEAZAR Administration Empagliflozin 5 mg 03/14/23 17:00 03/17/23 16:26 Empagliflozin 10 Mg Tablet BY MOUTH 5 mg 1700 ELEAZAR Administration Enoxaparin Sodium 40 mg 03/15/23 09:00 03/18/23 09:48 Enoxaparin 40 Mg/0.4 Ml Syringe SUB-Q 40 mg DAILY ELEAZAR Administration Glucagon 1 mg 03/14/23 00:53 Glucagon For Inj 1 Mg Vial IM PRN PRN Hypoglycemia Protocol Glucose 15 gm 03/14/23 00:53 Glucose Oral Gel 15 Gm Of Glucse In 37.5 Gm Tube PO PRN PRN Hypoglycemia Protocol Ibuprofen 800 mg in 200 mls @ 400 mls/hr 03/13/23 22:21 Caldolor 800 Mg/200 Ml IVPB Q6H PRN Pain Rated 1-3
[2023-03-18 14:00] VITALS: BP 113/71; PULSE 86; RESP 18; TEMP 36.4; O2SAT 99
[2023-03-18] MEDS: EMPAGLIFLOZIN 10 MG TABLET 5 MG BY MOUTH (16:07)
[2023-03-18 16:47] LABS: Glucose Point of Care 154 mg/dl (65-105)
[2023-03-18 20:35] LABS: Glucose Point of Care 183 mg/dl (65-105)
[2023-03-18 20:58] VITALS: PULSE 88
[2023-03-18] MEDS: INSULIN GLARGINE (*BKC) 100 UNITS/ML 15 UNITS SUB-Q (20:58)
[2023-03-18] MEDS: ATORVASTATIN 20 MG TABLET PO (20:58)
[2023-03-18] MEDS: METOPROLOL SUCCINATE EXT REL 100 MG TABCR PO (20:58)
[2023-03-18 21:57] VITALS: BP 129/73; PULSE 87; RESP 16; TEMP 36.2; O2SAT 98
[2023-03-19] MEDS: PIPERACILLIN/TAZ 2.25G/NS 50ML 2.25 GM/50 ML BAG IVPB ×2 (04:06→10:46)
[2023-03-19 06:00] VITALS: BP 124/75; PULSE 83; RESP 16; TEMP 36.3; O2SAT 99
[2023-03-19 06:00] LABS: Hematocrit 37.1 % (42.0-52.0); Hemoglobin 11.7 g/dL (14.0-18.0); Mean Corpuscular HGB Conc 31.5 g/dl (32-36); Mean Corpuscular Hemoglobin 29.1 pg (26-34); Mean Corpuscular Volume 92.3 fl (80-100); Mean Platelet Volume 8.3 fl (7.4-10.4); Platelet Count Result 259 k/mm3 (150-375); Red Blood Count 4.02 M/mm3 (4.6-6.20); Red Cell Distribution Width 13.9 % (11.5-14.5); White Blood Count 7.6 K/mm3 (4.5-10.0)
[2023-03-19 06:06] LABS: Anion Gap 5 mmol/L (8-16); Blood Urea Nitrogen 16 mg/dL (9-20); Calcium 7.8 mg/dL (8.4-10.2); Carbon Dioxide 25 mmol/L (22-30); Chloride 106 mmol/L (98-107); Estimated CRCL calculation 38 ml/min; Estimated Glomerular Filt Rate 49; Glucose 104 mg/dL (65-110); Potassium 4.1 mmol/L (3.4-5.0); Sodium 136 mmol/L (137-145)
[2023-03-19] MEDS: FLUTICASONE/SALMETEROL 115-21 MCG INHALER 1 PUFF 2 PUFF INHALATION (07:47)
[2023-03-19 07:50] VITALS: O2SAT 94
[2023-03-19 08:02] LABS: Glucose Point of Care 95 mg/dl (65-105)
[2023-03-19 09:12] VITALS: PULSE 76
[2023-03-19] MEDS: METOPROLOL SUCCINATE EXT REL 50 MG TABCR 150 MG PO (09:12)
[2023-03-19] MEDS: DULoxetine HCL 30 MG CAPSULE.DR PO (09:12)
[2023-03-19] MEDS: MECLIZINE HCL 25 MG TABLET PO (09:12)
[2023-03-19] MEDS: RANOLAZINE 500 MG TAB.ER.12H PO (09:13)
[2023-03-19] MEDS: ENOXAPARIN 40 MG/0.4 ML SYRINGE SUB-Q (09:13)
[2023-03-19] MEDS: PANTOPRAZOLE 40 MG TABLET PO (09:13)
[2023-03-19 11:40] LABS: Glucose Point of Care 142 mg/dl (65-105)
--- NOTE | 2023-03-19 13:00 | PCNWS ---
Weekly nutritional screen. Patient is tolerating current Diabetic diet with adequate intake at 75-100%. No weight loss reported. Possible discharge today. No nutritional needs at this time.
--- NOTE | 2023-03-19 16:39 | PM.DS ---
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 - Neoplasm of uncertain behavior of appendix Status: Acute (2) Ruptured appendix: Code(s): K35.32 - Acute appendicitis with perforation, localized peritonitis, and gangrene, without abscess Status: Acute (3) Insulin dependent diabetes mellitus: Status: Acute (4) HTN (hypertension): Qualifiers: Hypertension type: unspecified Qualified Code(s): I10 - Essential (primary) hypertension Code(s): I10 - Essential (primary) hypertension Status: Chronic (5) CKD (chronic kidney disease): Qualifiers: Chronic kidney disease stage: stage 3 (moderate) Chronic kidney disease stage 3 subtype: unspecified whether 3a or 3b Qualified Code(s): N18.30 - Chronic kidney disease, stage 3 unspecified Code(s): N18.9 - Chronic kidney disease, unspecified Status: Chronic DS: Summary Hospital Course Reason for hospitalization: This is a 77-year-old man who presented to his primary care doctor with at least 4 days of RLQ abdominal pain. He was sent for outpatient labs and CT scan of the abdomen and pelvis. Labs showed leukocytosis and he had CT evidence of acute appendicitis with ruptured appendix and some local ascites.? He then came to the emergency room at [facility].? He was admitted for surgical evaluation and treated of ruptured appendicitis. Hospital Course: His exam was consistent with appendicitis. He underwent attempted laparoscopic appendectomy, converted to open appendectomy on 03/13/[address] Westbrook. Findings in surgery appeared to be ruptured appendicitis with generalized peritonitis and multiple intra-abdominal abscesses. He was treated with broad-spectrum IV antibiotics. Hospitalist was consulted for medical management. His diet was slowly advanced as tolerated to a soft diet by postop day 3. His Coles catheter was removed postop day 3 as well and he was able to void without difficulties. As his postoperative pain became more controlled, he was able to increase activity and tolerated this well. His chronic kidney disease was monitored and remained stable postoperatively. Bowel function returned by postop day 4. PT and OT was ordered to help increase his activity and evaluate his needs for discharge. Peritonitis improved and leukocytosis resolved with continued IV antibiotics. His WBC count was normal by postop day 4. JORDYN drain output was removed postop day 4. Pathology resulted prior to discharge and showed ruptured low-grade appendiceal mucinous neoplasm. Dr. Westbrook discussed these results with the patient prior to discharge. He will consult with Oncology as an outpatient in the postop period regarding the next steps for the ruptured LAMN. Postop day 6, the patient was tolerating activity and his diet. WBC remained normal and he was afebrile. Pain was well controlled. Discussed the case with Dr. Westbrook who agreed that he appeared stable for discharge today. He recommended to stop antibiotics on discharge. Hospitalist also agreed that the patient was medically stable for discharge today. Plan to follow-up with Dr. Westbrook in 1 week. Status at Discharge Functional status at discharge: independent ambulation Overall status at discharge: patient is progressing back to baseline Time Spent with Patient Time attestation: Total time spent providing and/or coordinating discharge services: Time spent: Greater than 30 minutes Exam Const: General: comfortable and no acute distress Resp: Effort & Inspection: normal respiratory effort Auscultation: clear to auscultation bilaterally Cardio: Rate: regular rate Rhythm: regular rhythm GI: Inspection: non-distended and incision (incisions dry and intact) GI Palp: Yes Soft to palpation, Yes Tenderness to palpation present (GI) (incisional) an
== END 2023-03-19 13:00 | disposition home or self-care (01) | DRG 397 ==
LOC: ANHED 17:28 → ANHSURGERY 17:29 → ANH3MEDSUR 22:24
PROVIDERS: Admitting Provider Surgery; Emergency Provider General Practice; PCP Family Medicine; Visit Provider Surgery
PROC: 0DTJ4ZZ Resection of Appendix, Percutaneous Endoscopic Approach (ICD-10-PCS; CPT 44970; principal; 2023-03-13 18:30)
DX: D37.3 Neoplasm of uncertain behavior of appendix (principal); K35.211 Acute appendicitis with generalized peritonitis, with perforation and abscess; E87.1 Hypo-osmolality and hyponatremia; I50.32 Chronic diastolic (congestive) heart failure; I12.9 Hypertensive chronic kidney disease with stage 1 through stage 4 chronic kidney disease, or unspecified chronic kidney disease; I25.10 Atherosclerotic heart disease of native coronary artery without angina pectoris; J44.9 Chronic obstructive pulmonary disease, unspecified; N18.30 Chronic kidney disease, stage 3 unspecified; E11.22 Type 2 diabetes mellitus with diabetic chronic kidney disease; E11.65 Type 2 diabetes mellitus with hyperglycemia; E11.42 Type 2 diabetes mellitus with diabetic polyneuropathy; E78.00 Pure hypercholesterolemia, unspecified; K21.9 Gastro-esophageal reflux disease without esophagitis; K44.9 Diaphragmatic hernia without obstruction or gangrene; N40.0 Benign prostatic hyperplasia without lower urinary tract symptoms; H81.09 Meniere's disease, unspecified ear; M15.0 Primary generalized (osteo)arthritis; G47.33 Obstructive sleep apnea (adult) (pediatric); F32.A Depression, unspecified; F41.1 Generalized anxiety disorder; F17.290 Nicotine dependence, other tobacco product, uncomplicated; Z79.4 Long term (current) use of insulin; Z79.82 Long term (current) use of aspirin
CPT/HCPCS: 36415; 80048; 80053; 82948; 85025; 85027; 86850; 86900; 86901; 88304; 94640; 96361; 96365; 96367; 97110; 97116; 97161; 97165; 97530; 97535; 99285; A9270; J0330; J0696; J1650; J1815; J1836; J2270; J2405; J2543; J2704; J3010; J3480; J7030; J7120

== ENCOUNTER 2023-04-28 13:18 | Outpatient (CLI) | payer MEDICARE, SELFPAY ==
[2023-04-28 13:31] LABS: Hematocrit 47.7 % (37.0-46.0); Hemoglobin 14.9 g/dL (12.4-15.3); Mean Corpuscular HGB Conc 31.2 g/dL (32.0-36.0); Mean Corpuscular Hemoglobin 28.2 pg (27.0-31.0); Mean Corpuscular Volume 90.3 fL (78.0-102.0); Mean Platelet Volume 8.4 fl (8.7-11.0); Platelet Count Result 213 K/mm3 (150-420); Red Blood Count 5.28 M/mm3 (4.70-6.10); Red Cell Distribution Width 14.1 % (11.6-14.4); White Blood Count 9.9 K/mm3 (4.8-10.8)
[2023-04-28 13:41] LABS: Total Protein Urine Random < 7.0 mg/dL (0.0-11.9); Ur Ttl Prot Creatinine Ratio 0.24 mg/mg (0-0.20)
[2023-04-28 14:10] LABS: Albumin Level 3.4 g/dL (3.4-5.0); Anion Gap 8 mmol/L (8-16); Blood Urea Nitrogen 24 mg/dL (7-18); Calcium 8.4 mg/dL (8.5-10.1); Carbon Dioxide 32 mmol/L (21-32); Chloride 102 mmol/L (98-108); Estimated Glomerular Filt Rate 36; Glucose 206 mg/dL (70-99); Osmolality Calculated 304 mOsm/kg (285-295); Phosphorus 4.6 mg/dL (2.6-4.7); Potassium 4.7 mmol/L (3.5-5.1); Sodium 142 mmol/L (136-145)
[2023-04-30 15:06] LABS: Parathyroid Intact 178 pg/mL (14-64)
[2023-05-02 12:44] LABS: Vitamin D 25 Hydroxy 26 ng/mL (30-100)
== END 2023-04-28 13:19 | disposition home or self-care (01) ==
LOC: CHSLAB 13:19
PROVIDERS: PCP Family Medicine; Visit Provider Internal Medicine Nephrology
DX: E21.1 Secondary hyperparathyroidism, not elsewhere classified (principal); N18.9 Chronic kidney disease, unspecified; E11.9 Type 2 diabetes mellitus without complications; Z79.4 Long term (current) use of insulin
CPT/HCPCS: 36415; 80069; 82306; 82570; 83970; 84156; 85027

== ENCOUNTER 2023-05-05 13:18 | Outpatient (CLI) | payer MEDICARE, SELFPAY ==
[2023-05-05 13:34] LABS: Basophils Absolute Auto 0.05 K/mm3 (0.00-0.10); Basophils Percent Auto 0.5 % (0.0-1.0); Eosinophils Percent Auto 2.1 % (1.0-6.0); Hematocrit 42.8 % (37.0-46.0); Hemoglobin 13.8 g/dL (12.4-15.3); Immature Granulocyte Absolute 0.07 K/mm3 (0.00-0.00); Immature Granulocyte Percent A 0.7 % (0.0-0.0); Lymphocytes Percent Auto 16.7 % (18.0-42.0); Mean Corpuscular HGB Conc 32.2 g/dL (32.0-36.0); Mean Corpuscular Hemoglobin 28.8 pg (27.0-31.0); Mean Corpuscular Volume 89.4 fL (78.0-102.0); Mean Platelet Volume 8.3 fl (8.7-11.0); Monocytes Absolute Auto 0.77 K/mm3 (0.10-0.90); Neutrophils Absolute Auto 6.9 K/mm3 (1.7-7.2); Platelet Count Result 182 K/mm3 (150-420); Red Blood Count 4.79 M/mm3 (4.70-6.10); Red Cell Distribution Width 14.2 % (11.6-14.4); White Blood Count 9.6 K/mm3 (4.8-10.8)
[2023-05-05 14:21] LABS: Alanine Aminotransferase 26 U/L (16-63); Alkaline Phosphatase 96 U/L (46-116); Anion Gap 8 mmol/L (8-16); Aspartate Amino Transferase 17 U/L (15-37); Bilirubin,Total 0.4 mg/dL (0.00-1.00); Blood Urea Nitrogen 19 mg/dL (7-18); Calcium 7.9 mg/dL (8.5-10.1); Carbon Dioxide 28 mmol/L (21-32); Chloride 102 mmol/L (98-108); Estimated Glomerular Filt Rate 43; Glucose 257 mg/dL (70-99); Osmolality Calculated 297 mOsm/kg (285-295); Sodium 138 mmol/L (136-145)
[2023-05-07 03:57] LABS: CA-125 3 U/mL (<35)
[2023-05-07 06:33] LABS: CA 19-9 <3 U/mL (<34); Carcinoembryonic Antigen 5.8 ng/mL (<2.5)
== END 2023-05-05 13:19 | disposition home or self-care (01) ==
LOC: CHSLAB 13:21
PROVIDERS: PCP Family Medicine; Visit Provider Internal Medicine Hematology & Oncology
DX: D37.3 Neoplasm of uncertain behavior of appendix (principal); R97.8 Other abnormal tumor markers
CPT/HCPCS: 36415; 80053; 82378; 85025; 86301; 86304

== ENCOUNTER 2023-05-28 13:04 | Outpatient (CLI) | payer MEDICARE, OTHER, SELFPAY ==
--- NOTE | ~2023-05-28 | XR_ITS ---
EXAMINATION: XR hip LT 2V w AP pelvis INDICATION: Left hip pain TECHNIQUE: AP view the pelvis and two views of the left hip are obtained. 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 Bone alignment is normal. There is no fracture . There are phleboliths of the pelvis. There is mild left hip osteoarthritis. Calcified atheroscleros is is noted. IMPRESSION: 1. Mild left hip osteoarthritis without acute osseous abnormality. Reviewed, dictated and finalized at location [facility]
== END 2023-05-28 13:05 | disposition home or self-care (01) ==
LOC: CHSIMG 13:07
PROVIDERS: PCP Family Medicine; Visit Provider Family Medicine
DX: M25.552 Pain in left hip (principal); M16.12 Unilateral primary osteoarthritis, left hip
CPT/HCPCS: 73502

== ENCOUNTER 2023-05-29 10:24 | Outpatient (CLI) | payer MEDICARE, OTHER, SELFPAY ==
--- NOTE | ~2023-05-29 | CT_ITS ---
CT of the Abdomen and Pelvis: Indication: Low-grade mucinous neoplasm of the appendix Technique: 2.5 mm axial scans were obtained through the abdomen and pelvis following intravenous adm inistration of 100 cc of Omnipaque 350. Dose reduction technique was used on this scan by utilizing a utomated exposure control and iterative reconstruction technique. The dose-length product (DLP) was 4 55.90 mGy-cm. COMPARISON: 03/13/2023 Findings: Scans through the lung bases demonstrate mild bibasilar chronic pulmonary interstitial dis ease. Large hiatal hernia is unchanged, containing nearly entire stomach.. The liver, spleen, pancreas, gallbladder, adrenals and kidneys are within normal limits. There are at herosclerotic calcifications of the aorta. No lymphadenopathy. No bowel obstruction or bowel wall thickening. There is no evidence to suggest acute appendicitis. Images through the pelvis are degraded by streak artifact from right hip arthroplasty. There is proba ble diffuse urinary bladder wall thickening. Possibly gland is enlarged. No ascites. There are stable , chronic mild compression deformities of T12 and L1. Impression: No evidence of malignancy or metastatic disease. Status post presumed interval appendectomy. Stable large hiatal hernia containing essentially entire stomach. Diffuse urinary bladder wall thickening, consistent with cystitis. Correlate clinically. Enlarged prostate gland. Reviewed, dictated and finalized at location M. RONMENTAL ENGINEERING MANAGER Impression: No evidence of malignancy or metastatic disease. Status post presumed interval appendectomy. Stable large hiatal hernia containing essentially entire stomach. Diffuse urinary bladder wall thickening, consistent with cystitis. Correlate cl inically. Enlarged prostate gland.
== END 2023-05-29 10:25 | disposition home or self-care (01) ==
PROVIDERS: PCP Family Medicine; Visit Provider Internal Medicine Hematology & Oncology
DX: D37.3 Neoplasm of uncertain behavior of appendix (principal); Z98.890 Other specified postprocedural states; K44.9 Diaphragmatic hernia without obstruction or gangrene; R93.41 Abnormal radiologic findings on diagnostic imaging of renal pelvis, ureter, or bladder; N40.0 Benign prostatic hyperplasia without lower urinary tract symptoms
CPT/HCPCS: 74177; Q9967

== ENCOUNTER 2023-09-10 09:51 | Outpatient (CLI) | payer MEDICARE, OTHER, SELFPAY ==
--- NOTE | ~2023-09-10 | CT_ITS ---
CT of the Abdomen and Pelvis: Indication: Low-grade mucinous neoplasm of the appendix Technique: 2.5 mm axial scans were obtained through the abdomen and pelvis following intravenous adm inistration of 100 cc of Omnipaque 350. Dose reduction technique was used on this scan by utilizing a utomated exposure control and iterative reconstruction technique. The dose-length product (DLP) was 5 73.26 mGy-cm. COMPARISON: 05/29/2023 Findings: Scans through the lung bases demonstrate stable bibasilar, peripheral chronic interstitial disease. Large hiatal hernia present. The liver, spleen, pancreas, gallbladder, adrenals and kidneys are within normal limits. There are at herosclerotic calcifications of the aorta. No lymphadenopathy. No bowel obstruction or bowel wall thickening. There is no evidence to suggest acute appendicitis. Images through the pelvis were performed. Probable mild diffuse urinary bladder wall thickening. Pros alejandro gland enlarged. There is streak artifact from right hip arthroplasty. No ascites. There are mild chronic compression deformities of T12 and L1. Impression: No evidence of malignancy or metastatic disease. Stable large hiatal hernia. Stable chronic interstitial disease at the lung bases. Probable cystitis. Enlarged prostate gland. Stable compression deformities of the spine, as above. Reviewed, dictated and finalized at location . Impression: No evidence of malignancy or metastatic disease. Stable large hiatal hernia. Stable chronic interstitial disease at the lung bases. Probable cystitis. Enlarged prostate gland. Stable compression deformities of the spine, as above.
[2023-09-10 10:05] LABS: Basophils Absolute Auto 0.03 K/mm3 (0.00-0.10); Basophils Percent Auto 0.3 % (0.0-1.0); Eosinophils Absolute Auto 0.12 K/mm3 (0.02-0.50); Eosinophils Percent Auto 1.4 % (1.0-6.0); Hematocrit 46.4 % (37.0-46.0); Hemoglobin 14.9 g/dL (12.4-15.3); Immature Granulocyte Absolute 0.08 K/mm3 (0.00-0.00); Immature Granulocyte Percent A 0.9 % (0.0-0.0); Lymphocytes Absolute Auto 1.14 K/mm3 (1.10-4.50); Lymphocytes Percent Auto 13.1 % (18.0-42.0); Mean Corpuscular HGB Conc 32.1 g/dL (32-36); Mean Corpuscular Hemoglobin 28.1 pg (27.0-31.0); Mean Corpuscular Volume 87.4 fL (78.0-102.0); Mean Platelet Volume 8.5 fl (8.7-11.0); Monocytes Absolute Auto 0.72 K/mm3 (0.10-0.90); Monocytes Percent Auto 8.3 % (2.0-11.0); Platelet Count Result 177 K/mm3 (150-420); Red Blood Count 5.31 M/mm3 (4.70-6.10); Red Cell Distribution Width 14.9 % (11.6-14.4); White Blood Count 8.7 K/mm3 (4.8-10.8)
[2023-09-10 10:20] LABS: Alanine Aminotransferase 22 U/L (16-63); Albumin Level 3.2 g/dL (3.4-5.0); Alkaline Phosphatase 91 U/L (46-116); Anion Gap 9 mmol/L (4-12); Aspartate Amino Transferase 14 U/L (15-37); Bilirubin,Total 0.4 mg/dL (0.00-1.00); Blood Urea Nitrogen 27 mg/dL (7-18); Calcium 8.5 mg/dL (8.5-10.1); Carbon Dioxide 30 mmol/L (21-32); Chloride 100 mmol/L (98-108); Estimated Glomerular Filt Rate 33; Glucose 320 mg/dL (70-99); Osmolality Calculated 305 mOsm/kg (285-295); Potassium 4.7 mmol/L (3.5-5.1); Sodium 139 mmol/L (136-145); Total Protein 6.8 g/dL (6.4-8.2)
[2023-09-11 22:13] LABS: Carcinoembryonic Antigen 5.7 ng/mL
== END 2023-09-10 09:52 | disposition home or self-care (01) ==
LOC: CHSIMG 09:53
PROVIDERS: PCP Family Medicine; Visit Provider Internal Medicine Hematology & Oncology
DX: D37.3 Neoplasm of uncertain behavior of appendix (principal); K44.9 Diaphragmatic hernia without obstruction or gangrene; J84.9 Interstitial pulmonary disease, unspecified; N40.0 Benign prostatic hyperplasia without lower urinary tract symptoms; M43.8X4 Other specified deforming dorsopathies, thoracic region
CPT/HCPCS: 36415; 74177; 80053; 82378; 85025; Q9967

== ENCOUNTER 2023-11-09 13:14 | Outpatient (CLI) | payer MEDICARE, SELFPAY ==
[2023-11-09 13:27] LABS: Hematocrit 48.8 % (37.0-46.0); Hemoglobin 15.8 g/dL (12.4-15.3); Mean Corpuscular HGB Conc 32.4 g/dL (32-36); Mean Corpuscular Hemoglobin 28.7 pg (27.0-31.0); Mean Corpuscular Volume 88.6 fL (78.0-102.0); Mean Platelet Volume 8.1 fl (8.7-11.0); Platelet Count Result 195 K/mm3 (150-420); Red Blood Count 5.51 M/mm3 (4.70-6.10); Red Cell Distribution Width 14.9 % (11.6-14.4); White Blood Count 9.2 K/mm3 (4.8-10.8)
[2023-11-09 13:34] LABS: Creatinine Urine 33.89 mg/dL (40-278); Total Protein Urine Random 8.9 mg/dL (0.0-11.9); Ur Ttl Prot Creatinine Ratio 0.26 mg/mg (0-0.20)
[2023-11-09 14:11] LABS: Albumin Level 3.4 g/dL (3.4-5.0); Blood Urea Nitrogen 23 mg/dL (7-18); Calcium 8.6 mg/dL (8.5-10.1); Chloride 99 mmol/L (98-108); Estimated Glomerular Filt Rate 37; Glucose 167 mg/dL (70-99); Osmolality Calculated 295 mOsm/kg (285-295); Phosphorus 4.6 mg/dL (2.6-4.7); Potassium 4.2 mmol/L (3.5-5.1); Sodium 139 mmol/L (136-145)
[2023-11-09 14:16] LABS: Anion Gap 8 mmol/L (4-12); Carbon Dioxide 32 mmol/L (21-32)
[2023-11-10 13:13] LABS: Parathyroid Intact 113 pg/mL (16-77)
[2023-11-10 22:19] LABS: Vitamin D 25 Hydroxy 60 ng/mL (30-100)
== END 2023-11-09 13:15 | disposition home or self-care (01) ==
LOC: CHSLAB 13:16
PROVIDERS: PCP Family Medicine; Visit Provider Internal Medicine Nephrology
DX: E11.9 Type 2 diabetes mellitus without complications (principal); E21.1 Secondary hyperparathyroidism, not elsewhere classified; N18.32 Chronic kidney disease, stage 3b; I12.9 Hypertensive chronic kidney disease with stage 1 through stage 4 chronic kidney disease, or unspecified chronic kidney disease
CPT/HCPCS: 36415; 80069; 82306; 82570; 83970; 84156; 85027

== ENCOUNTER 2023-11-19 13:25 | Outpatient (CLI) | payer MEDICARE, OTHER, SELFPAY ==
--- NOTE | 2023-11-19 13:30 | ECG_ITS ---
Test Date: 2023-11-19 13:42:24 Measurements Intervals [place] Rate: 78 P: 51 MO: 170 QRS: 1 QRSD: 97 T: 51 QT: 374 QTc: 428 Interpretive Statements SINUS RHYTHM No previous ECG available for comparison Electronically Signed On 11-19-2023 14:19:36 CDT by Meir Rosario M.D.
== END 2023-11-19 13:26 | disposition home or self-care (01) ==
PROVIDERS: PCP Family Medicine; Visit Provider Internal Medicine Cardiovascular Disease
DX: R07.9 Chest pain, unspecified (principal)
CPT/HCPCS: 93005

== ENCOUNTER 2023-11-24 08:26 | Outpatient (CLI) | payer MEDICARE, SELFPAY ==
[2023-11-24 09:12] LABS: Cholesterol 180 mg/dL (0-200); HDL Direct 47 mg/dL (40-60); LDL Cholesterol Calculated 101 mg/dL (<130); Triglycerides 160 mg/dL (0-150)
== END 2023-11-24 08:27 | disposition home or self-care (01) ==
LOC: CHSLAB 08:28
PROVIDERS: PCP Family Medicine; Visit Provider Internal Medicine Cardiovascular Disease
DX: E78.00 Pure hypercholesterolemia, unspecified (principal)
CPT/HCPCS: 36415; 80061

== ENCOUNTER 2023-12-16 10:59 | Outpatient (CLI) | payer MEDICARE, SELFPAY ==
[2023-12-16 11:21] LABS: Basophils Absolute Auto 0.05 K/mm3 (0.00-0.10); Basophils Percent Auto 0.6 % (0.0-1.0); Eosinophils Absolute Auto 0.11 K/mm3 (0.02-0.50); Eosinophils Percent Auto 1.2 % (1.0-6.0); Hematocrit 46.9 % (37.0-46.0); Hemoglobin 15.3 g/dL (12.4-15.3); Immature Granulocyte Absolute 0.09 K/mm3 (0.00-0.00); Lymphocytes Absolute Auto 1.02 K/mm3 (1.10-4.50); Lymphocytes Percent Auto 11.3 % (18.0-42.0); Mean Corpuscular HGB Conc 32.6 g/dL (32-36); Mean Corpuscular Hemoglobin 28.6 pg (27.0-31.0); Mean Corpuscular Volume 87.7 fL (78.0-102.0); Mean Platelet Volume 8.1 fl (8.7-11.0); Monocytes Absolute Auto 0.71 K/mm3 (0.10-0.90); Monocytes Percent Auto 7.9 % (2.0-11.0); Neutrophils Absolute Auto 7.06 K/mm3 (1.70-7.20); Platelet Count Result 171 K/mm3 (150-420); Red Blood Count 5.35 M/mm3 (4.70-6.10); Red Cell Distribution Width 14.6 % (11.6-14.4)
[2023-12-18 07:49] LABS: Carcinoembryonic Antigen 6.7 ng/mL
== END 2023-12-16 11:00 | disposition home or self-care (01) ==
LOC: CHSLAB 11:01
PROVIDERS: PCP Family Medicine; Visit Provider Internal Medicine Hematology & Oncology
DX: D37.3 Neoplasm of uncertain behavior of appendix (principal)
CPT/HCPCS: 36415; 82378; 85025

== ENCOUNTER 2023-12-22 14:13 | Outpatient (CLI) | payer MEDICARE, OTHER, SELFPAY ==
[2023-12-22 14:35] LABS: Blood Urea Nitrogen 23 mg/dL (8-26); Carbon Dioxide 30 mmol/L (22-30); Chloride 101 mmol/L (98-109); Estimated Glomerular Filt Rate 36; Glucose 210 mg/dL (70-105); Ionized Calcium (POC) 1.16 mmol/L (1.11-1.31); Potassium 4.6 mmol/L (3.5-4.9); Sodium 139 mmol/L (138-146)
[2023-12-22 16:44] LABS: Alanine Aminotransferase 21 U/L (6-50); Albumin Level 4.1 g/dL (3.5-5.1); Alkaline Phosphatase 95 U/L (38-126); Anion Gap 13 mmol/L (4-12); Aspartate Amino Transferase 22 U/L (17-59); Bilirubin,Total 0.5 mg/dL (0.2-1.3); Blood Urea Nitrogen 22 mg/dL (9-20); Calcium 9.1 mg/dL (8.4-10.2); Carbon Dioxide 30 mmol/L (22-30); Chloride 99 mmol/L (98-107); Estimated Glomerular Filt Rate 39; Glucose 212 mg/dL (65-110); Potassium 4.6 mmol/L (3.4-5.0); Sodium 142 mmol/L (137-145)
== END 2023-12-22 14:14 | disposition home or self-care (01) ==
LOC: ANHLAB 14:16
PROVIDERS: PCP Family Medicine; Visit Provider Internal Medicine Hematology & Oncology
DX: D37.3 Neoplasm of uncertain behavior of appendix (principal)
CPT/HCPCS: 36415; 80047; 80053

== ENCOUNTER 2024-01-12 07:55 | Outpatient (CLI) | payer MEDICARE, OTHER, SELFPAY ==
--- NOTE | ~2024-01-12 | NM_ITS ---
EXAMINATION: NM pelon stress w perfusion DATE: 01/12/2024 11:49 INDICATION: Chest pain TECHNIQUE: Rest images were obtained following intravenous administration of 11.0 mCi Tc99m tetrofosm in (Myoview). The patient was infused intravenously with Lexiscan (Regadenoson). Then, 35.0 mCi Tc99m tetrofosmin (Myoview) was administered intravenously, and stress images were obtained. Data was stephanie nstructed into short axis and horizontal and vertical long axis SPECT images. Gated SPECT images were also obtained. COMPARISON: None. FINDINGS: There is no definite reversible or fixed perfusion abnormality to suggest ischemia or infar ction. There is normal left ventricular chamber size, wall motion and ejection fraction. Left ventr icular ejection fraction measures >70%. IMPRESSION: 1. Normal myocardial perfusion at rest and during stress. 2. Left ventricular ejection fraction measuring >70%. Reviewed, dictated and finalized at location A.
--- NOTE | 2024-01-12 08:41 | EST_ITS ---
Patient Info Name: Davis Hunter Age: 78 years : 1945 Gender: Male Ht: 69 in Wt: 160 lbs BSA: 1.88 m2 HR: 86 bpm BP: 143 / 91 mmHg Heart Rhythm: Sinus Rhythm Exam Date: 01/12/2024 10:22 AM Exam Location: Echo Lab Patient Status: Outpatient Admit Date: 01/12/2024 Staff Ordering Physician: Brent Jaffe DO Attending Provider: Brent Jaffe DO Exercise Technologist: Mena Sanchez CT Exercise Physician: Brent Jaffe DO Exam Type: CA stress pelon w NM Study Info Indications R06.09 - Other forms of dyspnea A regadenoson stress test was performed. History/Risk Factors Hypertension: Yes Dyslipidemia: Yes Diabetic Therapy: Insulin Obesity: No Renal Disease: No Coronary Artery Disease (CAD) Yes Diabetes Mellitus: Type II COPD: On Meds Tobacco Use: Never Family History: Coronary Artery Disease DVT Treatment: Warfarin Deep Vein Thrombosis (DVT): None Dialysis: None Frailty Scale (CSHA): 6: Moderately Frail Summary 1. 1. Negative lexiscan stress test for ischemic ST changes by ECG criteria. 2. 2. Baseline hypertension. 3. 3. Nuclear scan to follow and will be reported separately. Please correlate with it. 4. 4. Patient informed of the above results. Protocol: Lexiscan Stress ECG Details Stage: REST Duration (min): 15 min : 40 sec HR (bpm): 82 SBP (mmHg): 143 DBP (mmHg): 91 Stage: STAGE 1 Duration (min): 0 min : 59 sec HR (bpm): 98 SBP (mmHg): 163 DBP (mmHg): 95 Stage: RECOVERY Duration (min): 1 min : 0 sec HR (bpm): 97 SBP (mmHg): 163 DBP (mmHg): 95 Stage: RECOVERY Duration (min): 2 min : 0 sec HR (bpm): 100 SBP (mmHg): 163 DBP (mmHg): 95 Stage: RECOVERY Duration (min): 3 min : 0 sec HR (bpm): 102 SBP (mmHg): 137 DBP (mmHg): 87 Stage: RECOVERY Duration (min): 4 min : 0 sec HR (bpm): 103 SBP (mmHg): 137 DBP (mmHg): 87 Stage: RECOVERY Duration (min): 4 min : 36 sec HR (bpm): 93 SBP (mmHg): 137 DBP (mmHg): 87 Rest HR: 82 bpm Peak HR: 103 bpm Rest Sys BP: 143 mmHg Peak Sys BP: 163 mmHg Max Pred HR: 140 bpm % Max Pred HR: 74 % Target HR: 119 bpm Max RPP: 16,789 bpm*mmHg Termination Reason: Completed protocol Cardiac Symptoms: Shortness of breath Total Time: 1 min : 0 sec Rest [place] BP: 91 mmHg Peak [place] BP: 95 mmHg Total Dose: 0.4 mg Resting ECG Sinus rhythm. Stress ECG No ST changes. Arrhythmias None. Report Signatures
--- NOTE | 2024-01-12 08:41 | ECHO_ITS ---
Patient Info Name: Davis Hunter Age: 78 years : 1945 Gender: Male Ht: 69 in Wt: 160 lbs BSA: 1.88 m2 HR: 80 bpm BP: 150 / 94 mmHg Technical Quality: Good Exam Date: 01/12/2024 8:51 AM Exam Location: Echo Lab Patient Status: Outpatient Admit Date: 01/12/2024 Staff Ordering Physician: Brent Jaffe DO Step Finisher: Abril Tran RDCS Attending Provider: Brent Jaffe DO Referring Physician: Ld HANNAH; Exam Type: CA echo doppler color flow Study Info Indications R06.09 - Other forms of dyspnea Complete two-dimensional, color flow and Doppler transthoracic echocardiogram is performed. History/Risk Factors Hypertension: Yes Dyslipidemia: Yes Diabetic Therapy: Insulin Obesity: No Renal Disease: No Coronary Artery Disease (CAD) Yes Diabetes Mellitus: Type II COPD: On Meds Tobacco Use: Never Family History: Coronary Artery Disease DVT Treatment: Warfarin Deep Vein Thrombosis (DVT): None Dialysis: None Frailty Scale (CSHA): 6: Moderately Frail Summary 1. Complete two-dimensional, color flow and Doppler transthoracic echocardiogram is performed. 2. Left ventricular chamber dimension is normal. 3. Left ventricular systolic function is normal, estimated at 60-65%. 4. The left ventricular diastolic function is grade I diastolic dysfunction. 5. E/e' 14 is mildly elevated. 6. Global longitudinal strain is normal at -17.1%. 7. There is mild aortic valve sclerosis. 8. There is trace mitral valve regurgitation. 9. There is mild tricuspid valve regurgitation. 10. No pulmonary hypertension, estimated pulmonary arterial systolic pressure is 35 mmHg. Recommendations * Continue medical therapy for diabetes. Left Ventricle E/e' 14 is mildly elevated. Global longitudinal strain is normal at -17.1%. Left ventricular chamber dimension is normal. Left ventricular systolic function is normal, estimated at 60-65%. The left ventricular diastolic function is grade I diastolic dysfunction. Right Ventricle Right ventricular chamber dimension is normal. Right ventricular systolic function is normal. Left Atria Left atrial chamber dimension is normal. Right Atria Right atrial chamber dimension is normal. Aortic Valve The aortic valve is trileaflet. There is mild aortic valve sclerosis. There is no aortic valve stenosis. There is no aortic valve regurgitation. Pulmonic Valve There is no pulmonic regurgitation. Mitral Valve There is no mitral valve stenosis. There is trace mitral valve regurgitation. Tricuspid Valve There is mild tricuspid valve regurgitation. No pulmonary hypertension, estimated pulmonary arterial systolic pressure is 35 mmHg. Pericardium/Pleural There is no pericardial effusion. Inferior Vena Cava Normal inferior vena cava with >50% collapse upon inspiration consistent with normal right atrial pressure, 5 mmHg. Aorta The aortic root size at the sinus of Valsalva is normal. Left Ventricular Outflow Tract Name Value Normal LVOT 2D LVOT Diameter 1.9 cm LVOT Doppler LVOT Peak Gradient 4 mmHg LVOT Mean Gradient 2 mmHg LVOT VTI
== END 2024-01-12 07:56 | disposition home or self-care (01) ==
LOC: ANHCARD 07:56
PROVIDERS: PCP Family Medicine; Visit Provider Internal Medicine Cardiovascular Disease
DX: I08.2 Rheumatic disorders of both aortic and tricuspid valves (principal); R07.9 Chest pain, unspecified; R06.09 Other forms of dyspnea
CPT/HCPCS: 78452; 93017; 93306; A9502; J2785

== ENCOUNTER 2024-03-21 08:43 | Outpatient (CLI) | payer MEDICARE, OTHER, SELFPAY ==
--- NOTE | ~2024-03-21 | CT_ITS ---
EXAMINATION: CT abdomen pelvis w con DATE: 03/21/2024 09:37 INDICATION: Low-grade mucinous neoplasm of the appendix TECHNIQUE: Computed tomography (CT) of the abdomen and pelvis was performed with 100 mL Omnipaque-350 intravenous contrast. Automated exposure control and iterative reconstruction technique were employe d. The dose-length product was 516.90 mGy-cm. COMPARISON: 09/10/2023 FINDINGS: Unchanged mild peripheral reticular pattern of chronic interstitial lung disease along with a few sca ttered tiny calcified pulmonary nodules consistent with old granulomatous disease. Heart size is norm al. No pericardial or pleural effusion. Atherosclerotic coronary artery calcium. Aortic valve calcifi cation. Large sliding-type hiatal hernia with organoaxial volvulus. Liver, gallbladder, spleen, pancr eas and bilateral adrenal glands are normal. Bilateral renal cysts the largest on the right measuring 3.1 cm in maximal diameter. There is moderate colonic diverticulosis with a sigmoid predominance. T here is no adjacent inflammatory change to suggest diverticulitis. No bowel obstruction. Appendix is surgically absent. There are multiple small soft tissue density nodules along the greater omentum in the right abdomen, a a few of which are new and a couple of which have increased in size slightly lar chau increased from 8 x 6 mm to currently measuring 1.6 x 1.0 cm and which are concerning for metastat ic disease. No bowel obstruction. Bladder is normal. No free intraperitoneal gas or fluid. No patholo gically enlarged abdominal or pelvic lymphadenopathy. Mild to moderate lumbar and lower thoracic spon dylosis with chronic T12 and L1 compression fractures. Prominent bone island at T10.0 bipolar type ri ght hip hemiarthroplasty. IMPRESSION: 1. 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 2. Large sliding-type hiatal hernia. 3. Moderate diverticulosis. Reviewed, dictated and finalized at location B. CAL TECHNICAL WRITER IMPRESSION: 1. Several small nodular soft tissue densities measuring up to 1.6 x 1.0 cm bill ng the greater omentum in the right abdomen, several which are new and a couple which have increased in size and which are suspicious for metastatic peritonea l implants related to previously resected mucinous neoplasm of the appendix. 2. Large sliding-type hiatal hernia. 3. Moderate diverticulosis.
[2024-03-21 09:08] LABS: Basophils Absolute Auto 0.05 K/mm3 (0.00-0.10); Basophils Percent Auto 0.6 % (0.0-1.0); Eosinophils Absolute Auto 0.14 K/mm3 (0.02-0.50); Eosinophils Percent Auto 1.7 % (1.0-6.0); Hematocrit 46.8 % (37.0-46.0); Hemoglobin 15.3 g/dL (12.4-15.3); Immature Granulocyte Absolute 0.08 K/mm3 (0.00-0.00); Lymphocytes Absolute Auto 1.18 K/mm3 (1.10-4.50); Lymphocytes Percent Auto 14.3 % (18.0-42.0); Mean Corpuscular HGB Conc 32.7 g/dL (32-36); Mean Corpuscular Hemoglobin 28.3 pg (27.0-31.0); Mean Corpuscular Volume 86.7 fL (78.0-102.0); Mean Platelet Volume 8.5 fl (8.7-11.0); Monocytes Absolute Auto 0.71 K/mm3 (0.10-0.90); Monocytes Percent Auto 8.6 % (2.0-11.0); Neutrophils Absolute Auto 6.08 K/mm3 (1.70-7.20); Neutrophils Percent Auto 73.8 % (50.0-70.0); Platelet Count Result 173 K/mm3 (150-420); Red Cell Distribution Width 14.2 % (11.6-14.4); White Blood Count 8.2 K/mm3 (4.8-10.8)
[2024-03-21 09:23] LABS: Alanine Aminotransferase 22 U/L (16-63); Albumin Level 3.3 g/dL (3.4-5.0); Alkaline Phosphatase 113 U/L (46-116); Anion Gap 9 mmol/L (4-12); Aspartate Amino Transferase 14 U/L (15-37); Bilirubin,Total 0.6 mg/dL (0.00-1.00); Blood Urea Nitrogen 24 mg/dL (7-18); Calcium 8.8 mg/dL (8.5-10.1); Carbon Dioxide 31 mmol/L (21-32); Chloride 101 mmol/L (98-108); Estimated Glomerular Filt Rate 42; Glucose 188 mg/dL (70-99); Osmolality Calculated 301 mOsm/kg (285-295); Potassium 4.3 mmol/L (3.5-5.1); Sodium 141 mmol/L (136-145); Total Protein 6.8 g/dL (6.4-8.2)
== END 2024-03-21 08:44 | disposition home or self-care (01) ==
PROVIDERS: PCP Family Medicine; Visit Provider Internal Medicine Hematology & Oncology
DX: D37.3 Neoplasm of uncertain behavior of appendix (principal); K44.9 Diaphragmatic hernia without obstruction or gangrene; K57.30 Diverticulosis of large intestine without perforation or abscess without bleeding
CPT/HCPCS: 36415; 74177; 80053; 82378; 85025; Q9967

== ENCOUNTER 2024-05-10 13:19 | Outpatient (CLI) | payer MEDICARE, OTHER, SELFPAY ==
[2024-05-10 13:41] LABS: Hemoglobin 14.1 g/dL (12.4-15.3); Mean Corpuscular HGB Conc 31.3 g/dL (32-36); Mean Corpuscular Hemoglobin 27.1 pg (27.0-31.0); Mean Corpuscular Volume 86.5 fL (78.0-102.0); Platelet Count Result 173 K/mm3 (150-420); Red Cell Distribution Width 15.2 % (11.6-14.4); White Blood Count 8.2 K/mm3 (4.8-10.8)
[2024-05-10 14:02] LABS: Albumin Level 3.1 g/dL (3.4-5.0); Anion Gap 10 mmol/L (4-12); Blood Urea Nitrogen 21 mg/dL (7-18); Calcium 8.3 mg/dL (8.5-10.1); Carbon Dioxide 29 mmol/L (21-32); Chloride 101 mmol/L (98-108); Estimated Glomerular Filt Rate 39; Glucose 214 mg/dL (70-99); Osmolality Calculated 299 mOsm/kg (285-295); Phosphorus 4.1 mg/dL (2.6-4.7); Potassium 4.7 mmol/L (3.5-5.1); Sodium 140 mmol/L (136-145)
--- OUTSIDE RECORDS SUMMARY | 2024-05-10 14:03 | XMS_ITS | Encounter Summary ---
Author Organization [facility] Address [address] [place] [address] Care Team Providers Care Sales Review Clerk Name Role Phone Bird Castillo MD Primary Care Provider Remi Hess MD, Joshua D MD Primary Care Provider [phone] [facility] Primary Care Provider [phone] Encounter Details Date Type Department Care Team (Late st Contact Info) Description 06/13/2017 Abstract [facility] [address] [place] [address] , Generic MD Brian Social History Tobacco Use Types Packs/Day Years Used Date Smoking Tobacco: Never Alcohol Use Standard Drinks/Week Comments No 0 (1 standard drink = 0.6 oz pur e alcohol) Sex and Gender Information Value Date Recorded Sex Assigned at Not on file Legal Sex Male 2:43 AM CDT Gender Identity Not on file Sexual Orientation Not on file Occupation Industry Job Start Date Job End Date Retired Not on file Not on file Not on file documented as of this encounter Plan of Treatment Not on file documented as of this encounter Visit Diagnoses Not on filedocumented in this encounter Care Teams Sales Review Clerk Relationship Specialty Start Date End Date Bird Castillo MD PCP - General SURGERY 12/12/15 11/16/18 Maged Robertson MD [address] [place] [address] PCP - General FAMILY PRACTICE 11/17/18 05/02/20 Luna Bhagat FNP [address] [place] [address] PCP - General NURSE PRACTITIONER 05/03/20 Remi Galan MD [place] Yield Analyst CARDIOVASCULAR DISEASE 12/12/15 11/11/23 documented as of this encounter
--- OUTSIDE RECORDS SUMMARY | 2024-05-10 14:03 | XMS_ITS | Encounter Summary ---
Author Organization [facility] Address [address] [place] [address] Care Team Providers Care Automation Machine Operator Name Role Phone Bird Castillo MD Primary Care Provider Remi Hess MD, Joshua D MD Primary Care Provider [phone] Luna Bhagat [facility] Primary Care Provider [phone] Encounter Details Date Type Department Care Team (Late st Contact Info) Description 01/11/2015 [facility] [address] [place] [address] Remi Galan MD Social History Tobacco Use Types Packs/Day Years [...] on filedocumented in this encounter Care Teams Automation Machine Operator Relationship Specialty Start Date End Date Bird Castillo MD PCP - General SURGERY 12/12/15 11/16/18 Maged Robertson MD [address] [place] [address] PCP - General FAMILY PRACTICE 11/17/18 05/02/20 Luna Bhagat FNP [address] [place] [address] PCP - General NURSE PRACTITIONER 05/03/20 Remi Galan MD [place] Inside Sales Territory Manager CARDIOVASCULAR DISEASE 12/12/15 11/11/23 documented as of this encounter
--- OUTSIDE RECORDS SUMMARY | 2024-05-10 14:03 | XMS_ITS | Clinical Summary ---
Author Organization [facility] Address [facility] [place] [address] Care Team Providers Care Tractor Expert Name Role Phone Luna Bhagat DOCTOR OF NURSE ANESTHESIA Primary Care Provider [phone] Allergies No known active allergies Medications meclizine 25 MG tablet Take 1 tablet (25 mg total) by mouth 2 (two) times a day. 5 Active nitroglycerin (NITROSTAT) 0.4 MG SL tablet Nitrostat (nitroglycerin) Tablet, Sublingual 0.4 mg; take 1 tablet under tongue, for chest pain as directed; 0; -Jan-2011; Active 1 Active PROAIR HFA 108 (90 BASE) MCG/ACT inhaler INHALE 2 PUFFS BY MOUTH 4 TIMES A DAY NEEDED 3 6 Active budesonide-for moterol 160-4.5 MCG/ACT inhaler Inhale 2 puffs into the lungs 2 (two) times daily. Active atorvastatin 20 MG tablet Take 1 tablet (20 mg total) by mouth every evening. 0 Active DULoxetine 30 MG capsule Take 1 capsule (30 mg total) by mouth daily. 1 Active TRESIBA FLEXTOUCH 100 UNIT/ML Solution Pen-injector injection 15 Units nightly. 1 Active omeprazole 20 MG capsule Take 1 capsule (20 mg total) by mouth daily. 1 Active B-D UF III MINI PEN NEEDLES 31G X 5 MM Misc see administration instructions. 2 Active TRUE METRIX BLOOD GLUCOSE TEST test strip TESTING DAILY DX:E11.9 2 Active FARXIGA 5 MG Tab Take 1 tablet by mouth daily. 2 Active calcium carbonate 1250 (500 Ca) MG chewable tablet Chew 500 mg by mouth. Active OZEMPIC 1 mg/dose injection (PEN) Inject 1 mg into the skin once a week. 3 Active RYBELSUS 7 MG Tab Take 1 tablet by mouth daily. 3 Active traMADol (ULTRAM) 50 MG tablet TAKE 1 TABLET BY MOUTH EVERY 6 HOURS NEEDED FOR PAIN - SEVERE PAIN ONLY 3 Active metoprolol succinate ER (TOPROL-XL) 100 MG 24 hr tablet TAKE 1 1/2 TABLETS IN THE AM AND 1 TABLET IN THE PM 225 tablet 2 4 Active ranolazine ER (RANEXA) 500 MG 12 hr tablet take 1 tablet by mouth every 12 hours 180 tablet 1 4 Active furosemide (LASIX) 20 MG tablet take 1 tablet by mouth every day 90 tablet 4 Active Active Problems Problem Noted Date Diagnosed Date CAD (coronary artery disease) 01/13/2016 S/P coronary artery stent placement 01/13/2016 HTN (hypertension) 01/13/2016 Obstructive sleep apnea on CPAP 01/13/2016 Overview (01/13/2016): CPAP for sleep apnea Depression 01/13/2016 Chest pain syndrome 01/13/2016 GERD (gastroesophageal reflux disease) COPD (chronic obstructive pu lmonary disease) ([facility]) Asthma ([facility]) Arthritis Family History Medical History Relation Comments Coronary artery disease Mother Relation Status Comments Father (Age 74) Mother (Age 94) Social History Tobacco Use Types Packs/Day Years Used Date Smoking Tobacco: Some Days Cigars Smokeless Tobacco: Never Tobacco Cessation:Ready to Q uit: Not Asked; Counseling Given: Not Answered Alcohol Use Standard Drinks/Week Comments No 0 (1 standard drink = 0.6 oz pur e alcohol) Sex and Gender Information Value Date Recorded Sex Assigned at Not on file Legal Sex Male 2:43 AM CDT Gender Identity Not on file Sexual Orientation Not on file Occupation Industry Job Start Date Job End Date Retired Not on file Not on file Not on file Last Filed Vital Signs Vital Sign Reading Time Taken Comments Blood Pressure 137/77 12/11/2022 1:00 PM CDT Pulse 87 12/11/2022 1:00 PM CDT Temperature - - Respiratory Rate 20 12/11/2022 1:00 PM CDT Oxygen Saturation 97% 12/11/2022 1:00 PM CDT Inhaled Oxygen Concentration - - Weight 73 kg (161 lb) 12/11/2022 1:00 PM CDT Height 175.3 cm (5' 9 ) 12/11/2022 1:00 PM CDT Body Mass Index 23.78 12/11/2022 1:00 PM CDT Plan of Treatment Health Maintenance Due Date Last Done Comments ASCVD Statin 1945 Pneumococcal Vaccine: 65+ Years (1 of 2 - PCV) 06/27/1951 11/28/2017 DTaP, Tdap and Td Vaccines ( 1 - Tdap) 06/27/1962 Zoster Vaccines (1 of 2) 06/27/1993 Annual Medicare Wellness Visit 06/27/2008 ASCVD LDL 03/25/2015 03/25/2014 RSV Immunization or 60+ Years (1 - 1-dose 75+ series) 06/27/2018 COVID-19 Vaccine ( - 2023-2 5 season) 2023 Influenza Adult (#1) 2023 01/11/2021, 02/13/2020 Meningococcal B Vaccine Aged Out No l onger eligible based on patient's age to complete this topic Meningococcal Vaccine Aged Out No elijah chau eligible based on patient's age to complete this topic RSV Immunizations Under 20 Months Aged Out No longer eligible b ased on patient's age to complete this topic Procedures Procedure Name Priority Date/Time Associated Diagnosis Comments LIPID PANEL Routine 03/25/2014 12:00 AM TRANSIT BUS DRIVER from Last 3 Months or Most Recently Relevant to Health Maintenance Results * LIPID PANEL (03/25/2014 12:00 AM TRANSIT BUS DRIVER) TRIGLYCERIDES 158 0 - 150 mg/dl MEDINFORMATIX TO EPIC CONVERSION CHOLESTEROL 153 0 - 200 mg/dl MEDINFORMATIX TO EPIC CONVERSION HDL 52 40 - 59 mg/dl MEDINFORMATIX TO EPIC CONVERSION LDL CONVERSION 69 0 - 100 mg/dl MEDINFORMATIX TO EPIC CONVERSION CHOL/HDL RATIO 2.9 <4.0 (Calc) MEDINFORMATIX TO EPIC CONVERSION 03/25/2014 03/25/2014 Narrative MEDINFORMATIX TO EPIC CONVERSION - 03/27/2014 12:56 PM TRANSIT BUS DRIVER Reviewed by DOTTY Mar 27 2014 12:56:51:000PM us Generic Conversion Md [facility] Final R esult MEDINFORMATIX TO EPIC CONVERSION from Last 3 Months or Most Recently Relevant to Health Maintenance Insurance [facility] [place] [id number] MEDICARE [facility] Care Teams Tractor Expert Relationship Specialty Start Date End Date Luna Bhagat, MARINA [address] [place] [address] PCP - General NURSE PRACTITIONER 05/03/20
--- OUTSIDE RECORDS SUMMARY | 2024-05-10 14:03 | XMS_ITS | Encounter Summary ---
Author Organization [facility] Address [address] [place] [address] Care Team Providers Care Fulfillment Associate Name Role Phone Bird Castillo MD Primary Care Provider Remi Hess MD, Joshua D MD Primary Care Provider [phone] Luna Bhagat [facility] Primary Care Provider [phone] Encounter Details Date Type Department Care Team (Late st Contact Info) Description 03/26/2016 Abstract [facility] [address] [place] [address] Remi Galan MD Social History Tobacco Use [...] on filedocumented in this encounter Care Teams Fulfillment Associate Relationship Specialty Start Date End Date Bird Castillo MD PCP - General SURGERY 12/12/15 11/16/18 Maged Robertson MD [address] [place] [address] PCP - General FAMILY PRACTICE 11/17/18 05/02/20 Luna Bhagat FNP [address] [place] [address] PCP - General NURSE PRACTITIONER 05/03/20 Remi Galan MD [place] Inspector Exhaust Emissions CARDIOVASCULAR DISEASE 12/12/15 11/11/23 documented as of this encounter
--- OUTSIDE RECORDS SUMMARY | 2024-05-10 14:03 | XMS_ITS | Clinical Summary ---
Author Organization [facility] Cel[facility] fine Address [address] [place] [id number] Phone Care Team Providers Care Senior Patient Account Representative Name Role Phone JovaniLuna hanson MARINA Primary Care Provider [phone] Allergies No known active allergies Medications Medication Sig Dispensed Refills Start Date End Date Status albuterol HFA (PROVENTIL HFA;VENTOLIN HFA) 108 (90 Base) MCG/ACT inhaler INHALE 1 PUFF BY MOUTH EVERY 4 HOURS 11/24/2019 Active atorvastatin (LIPITOR) 20 MG tablet Take 20 mg by mouth 1 (one) time each day 11/15/2019 Active SYMBICORT 160-4.5 MCG/ACT inhaler INHALE 2 PUFFS BY MOUTH EVERY 12 HOURS 09/12/2019 Active TRUE METRIX BLOOD GLUCOSE TEST test strip USE FOR TESTING DAILY DX E11.9 10/14/2019 Active meclizine (ANTIVERT) 25 MG tablet TAKE 1 TABLET BY MOUTH TWICE A DAY NEEDED FOR DIZZINESS 10/14/2019 Active metoprolol tartrate (LOPRESSOR) 50 MG tablet Take 50 mg by mouth 1 (one) time each day 10/06/2019 Active nitroglycerin (NITROSTAT) 0.[address] 0.4 mg under the tongue 02/17/2011 Active ranolazine (RANEXA) 500 MG 12 hr tablet Take 500 mg by mouth 2 times daily 03/09/2017 Active traMADol (ULTRAM) 50 MG tablet Take 50 mg by mouth every 6 (six) hours if needed for pain 11/02/2019 Active BD Pen Needle Sola U/F 32G X 4 MM misc USE DIRECTED EVERY DAY WITH TRESIBA 05/07/2020 Active DULoxetine (CYMBALTA) [address] capsule Take 30 mg by mouth 1 (one) time each day 04/02/2020 Active Tresiba FlexTouch 100 UNIT/ML injection INJECT 12 UNITS SUBCUTANEOUSLY DAILY 05/01/2020 Active omeprazole (PriLOSEC) [address] capsule Take 20 mg by mouth 1 (one) time each day 04/02/2020 Active metoprolol succinate XL (TOPROL-XL) 50 MG 24 hr tablet Take 50 mg by mouth 1 (one) time each day in the morning 11/21/2020 Active furosemide (LASIX) 20 MG tablet Take 20 mg by mouth 1 (one) time each day Active Trulicity 3 MG/0.5ML solution pen-injector 03/21/2021 Active Farxiga 5 MG tablet Take 1 tablet by mouth 1 (one) time each day 09/07/2021 Active predniSONE (DELTASONE) 20 MG tablet TAKE 2 TABLETS BY MOUTH DAILY IN THE MORNING 08/15/2021 Active calcium carbonate (TUMS) 500 MG chewable tablet Chew 500 mg 2 (two) times a day with meals Activ e Active Problems Problem Noted Date Diagnosed Date Stage 3b chronic kidney disease 12/06/2019 Chronic obstructive pulmonary disease 12/01/2019 Gastroesophageal reflux disease 12/01/2019 Coronary arteriosclerosis 01/13/2016 Hypertensive disorder 01/13/2016 Obstructive sleep apnea syndrome 01/13/2016 Overview (12/01/2019): CPAP for sleep apnea Chest pain 01/13/2016 History of placement of stent for coronary arter y disease 01/13/2016 Immunizations Name Administration Dates Next Due Fluzone High-Dose 02/13/2020 Influenza TIV (IM) 01/11/2021 Pneumococcal Conjugate 11/28/2017 Social History Tobacco Use Types Packs/Day Years Used Date Smoking Tobacco: Never Smokeless Tobacco: Never Alcohol Use Standard Drinks/Week Comments Yes 0 (1 standard drink = 0.6 oz pur e alcohol) every other month Sex and Gender Information Value Date Recorded Sex Assigned at Not on file Gender Identity Not on file Sexual Orientation Not on file Last Filed Vital Signs Vital Sign Reading Time Taken Comments Blood Pressure 118/72 10/02/2021 1:36 PM CDT Pulse 84 10/02/2021 1:36 PM CDT Temperature 35.9 C (96.6 F) 10/02/2021 1:36 PM CDT Respiratory Rate - - Oxygen Saturation - - Inhaled Oxygen Concentration - - Weight 78.9 kg (174 lb) 10/02/2021 1:36 PM CDT Height 175.3 cm (5' 9 ) 10/02/2021 1:36 PM CDT Body Mass Index 25.7 10/02/2021 1:36 PM CDT Plan of Treatment Health Maintenance Due Date Last Done Comments Pneumococcal PPSV23/PCV13 65 + Years / Low and Medium Risk (1 of 4 - PCV) 06/27/2008 Influenza Vaccine (#1) 2023 01/11/2021 Care Teams Senior Patient Account Representative Relationship Specialty Start Date End Date Luna Bhagat FNP PCP - General Family Medicine 11/03/19
--- OUTSIDE RECORDS SUMMARY | 2024-05-10 14:03 | XMS_ITS | Clinical Summary ---
Author Organization [facility] Tori Kangnahid Address [address] [place] [address] Care Team Providers Care Product Development Chemist Name Role Phone Robbin Garcia DO Primary Care Provider [phone] Allergies No known active allergies Medications budesonide-form oteroL (SYMBICORT) 160-4.5 mcg/actuation HFA Aerosol Inhaler Take 2 Puffs by inhalation 2 times daily. Active calcium as carbonate (CALCI-CHEW) 1,250 mg (500 mg elemental) Tablet, Chewable Take 500 mg by mouth. Active dapagliflozin propanediol (Farxiga) 5 mg Tablet Take 1 Tablet by mouth daily. 2 Active furosemide (LASIX) 20 mg tablet Take 1 Tablet by mouth daily. 3 Active metoprolol succinate (TOPROL XL) 100 mg Extended Release 24 hour tablet Take 1 1/2 tablets (150 mg) in the am, 1 tablet (100 mg) in the pm 3 Active dulaglutide (Trulicity) 3 mg/0.5 mL injection 1 Active ranolazine ER (RANEXA) 500 mg Extended Release 12 hour tablet Take 1 Tablet by mouth every 12 hours. 3 Active insulin degludec (Tresiba FlexTouch U-100) 100 unit/mL pen syringe Inject by subcutaneous injection. Active omeprazole (PriLOSEC) 20 mg Capsule, Delayed Release(E.C.) Take 20 mg by mouth daily. Active meclizine (ANTIVERT) 25 mg tablet Take 25 mg by mouth 3 times daily as needed for Dizziness. Active nitroglycerin (NITROSTAT) 0.4 mg Tablet, Sublingual Place 0.4 mg under tongue every 5 minutes as needed for Chest Pain. Active sertraline (ZOLOFT) 100 mg tablet Take 1 Tablet by mouth daily. Active ergocalciferol, vitamin D2, (VITAMIN D ORAL) Take by mouth. Activ e Active Problems Problem Noted Date Diagnosed Date Asthma 05/04/2023 Arthritis 05/04/2023 Stage 3b chronic kidney disease 12/06/2019 Gastroesophageal reflux disease 12/01/2019 Chronic obstructive pulmonary disease 12/01/2019 Obstructive sleep apnea syndrome 01/13/2016 Overview (05/04/2023): CPAP for sleep apnea CPAP for sleep apnea Hypertension 01/13/2016 History of coronary artery stent placement 01/12 Depression 01/13/2016 Chest pain 01/13/2016 Arteriosclerosis of coronary artery 01/13/2016 Encounters Date Type Department Care Team Description 04/21/2024 External Device Data STL ABSTRACTION Provider, Abstract 04/06/2024 1:00 PM BATTERY VENT PLUG INSERTER Office Visit [facility] - [place] [address] [place] [address] Humberto Bray MD 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) 03/25/2024 Orders Only [facility] - [place] [address] [place] [address] Humberto Bray MD 03/21/2024 Orders Only [facility] - [place] [address] [place] [address] Humberto Bray MD from Last 3 Months Family History Medical History Relation Name Comments Diabetes Daughter Cancer Father Diabetes Sister Relation Name Status Comments Daughter Alive Father Mother Sister Alive Son Alive Social History Tobacco Use Types Packs/Day Years Used Date Smoking Tobacco: Some Days Cigars Tobacco Cessation:Ready to Q uit: Not Asked; Counseling Given: Not Answered Alcohol Use Standard Drinks/Week Comments Not Currently 0 (1 standard drink = 0.6 oz pur e alcohol) Sex and Gender Information Value Date Recorded Sex Assigned at Not on file Legal Sex Male 8:25 AM BATTERY VENT PLUG INSERTER Gender Identity Not on file Sexual Orientation Not on file Last Filed Vital Signs Vital Sign Reading Time Taken Comments Blood Pressure 122/74 04/06/2024 1:03 PM BATTERY VENT PLUG INSERTER Pulse 89 04/06/2024 1:03 PM BATTERY VENT PLUG INSERTER Temperature 36.2 C (97.2 F) 04/06/2024 1:03 PM BATTERY VENT PLUG INSERTER Respiratory Rate 16 04/06/2024 1:03 PM BATTERY VENT PLUG INSERTER Oxygen Saturation 92% 04/06/2024 1:03 PM BATTERY VENT PLUG INSERTER Inhaled Oxygen Concentration - - Weight 75.3 kg (166 lb) 04/06/2024 1:03 PM BATTERY VENT PLUG INSERTER Height 175.3 cm (5' 9 ) 05/04/2023 2:53 PM BATTERY VENT PLUG INSERTER Body Mass Index 24.51 05/04/2023 2:53 PM BATTERY VENT PLUG INSERTER Plan of Treatment Upcoming Encounters Date Type Department Care Team (Late st Contact Info) Description 05/23/2024 9:45 AM BATTERY VENT PLUG INSERTER Office Visit [facility] [address] [facility] [address] [place] [address] Humberto Bray MD [address] [facility] [address] [place] [address] Health Maintenance Due Date Last Done Comments DTAP/TDAP/TD VACCINES (1 - Tdap) 06/27/1962 PNEUMOCOCCAL VACCINE 65+ YEARS (1 of 2 - PCV) 06/27/18 61 11/28/2017 ZOSTER VACCINE (1 of 2) 06/27/1993 RSV VACCINE (60+ or ) (1 - 1-dose 75+ series) 06/27/2018 INFLUENZA VACCINE (#1) 2023 01/11/2021 Procedures Procedure Name Priority Date/Time Associated Diagnosis Comments COMPREHENSIVE METABOLIC PANEL Routine 03/21/2024 3:28 PM BATTERY VENT PLUG INS[employer]TER CT CHEST ABDOMEN PELVIS W CONT Routine 03/21/2024 2:32 PM BATTERY VENT PLUG INSERTER CEA Routine 03/21/2024 12:20 PM BATTERY VENT PLUG INSERTER from Last 3 Months Results * COMPREHENSIVE METABOLIC PANEL (03/21/2024 3:28 PM BATTERY VENT PLUG INSERTER) Blood us Humberto Bray MD CHEMISTRY ORDERABLES Final Resu lt * CT CHEST ABDOMEN PELVIS W CONT (03/21/2024 2:32 PM BATTERY VENT PLUG INSERTER) Anatomical Region Laterality Modality Chest Other Humberto Bray MD CT ORDERABLES Final Result * CEA (03/21/2024 12:20 PM BATTERY VENT PLUG INSERTER) Blood Humberto Bray MD CHEMISTRY ORDERABLES Final Resu lt from Last 3 Months Insurance MEDICARE PART A AND B [facility] Care Teams Product Development Chemist Relationship Specialty Start Date End Date Robbin Garcia DO [address] [place] [address] PCP - General Family Practice 04/29/23
[2024-05-10 14:20] LABS: Creatinine Urine 70.61 mg/dL (40-278); Total Protein Urine Random 16.8 mg/dL (0.0-11.9); Ur Ttl Prot Creatinine Ratio 0.24 mg/mg (0-0.20)
[2024-05-11 13:43] LABS: Parathyroid Intact 62 pg/mL (16-77)
[2024-05-12 03:48] LABS: Vitamin D 25 Hydroxy 57 ng/mL (30-100)
== END 2024-05-10 13:20 | disposition home or self-care (01) ==
LOC: CHSLAB 13:22
PROVIDERS: PCP Family Medicine; Visit Provider Internal Medicine Nephrology
DX: N18.32 Chronic kidney disease, stage 3b (principal); E21.1 Secondary hyperparathyroidism, not elsewhere classified; E11.9 Type 2 diabetes mellitus without complications; Z79.4 Long term (current) use of insulin
CPT/HCPCS: 36415; 80069; 82306; 82570; 83970; 84156; 85027

== ENCOUNTER 2024-05-24 11:35 | Emergency (ER) | payer MEDICARE, OTHER, SELFPAY ==
--- NOTE | ~2024-05-24 | XR_ITS ---
EXAMINATION: XR hip LT min 3V w AP pelvis DATE: 05/24/2024 12:36 INDICATION: Left hip pain. TECHNIQUE: An anteroposterior view of the pelvis and 2 views of left hip were obtained. COMPARISON: Pelvis radiographs 05/28/2023 FINDINGS: There is a bipolar right hip hemiarthroplasty in near-anatomic alignment. No fracture. Ther e is mild osteoarthritis of the hips. IMPRESSION: 1. Mild osteoarthritis of the hips. 2. Bipolar right hip hemiarthroplasty in near-anatomic alignment. Reviewed, dictated and finalized at location A. LEADER
--- NOTE | ~2024-05-24 | XR_ITS ---
HISTORY: Upper LT hip pain, NKI COMPARISON: None. Reference is made to CT examination of the abdomen and pelvis dated 09/10/2023 TECHNIQUE: 3 view lumbar spine. FINDINGS: Lumbar vertebral bodies are normally aligned. There are 5 non-rib bearing lumbar vertebral bodies. Compression of the inferior endplate of L1 and the superior endplate of T12, a pattern unchanged dati ng back to 09/10/2023 Disc spaces and remaining vertebral body heights are well maintained. There are no lytic or sclerotic lesions. Densely calcified abdominal aorta. Remaining paraspinal soft tissues are otherwise unremarkable IMPRESSION: Degenerative disease, without acute fracture. Reviewed, dictated and finalized at location A. CIATE EMBALMER/FUNERAL DIRECTOR
[2024-05-24 11:37] VITALS: BP 137/86; PULSE 88; RESP 16; TEMP 36.3; O2SAT 99
--- NOTE | 2024-05-24 11:38 | ED_ITS ---
HPI - Back Pain/Injury General Chief Complaint: Back Pain/Injury Stated Complaint: BACK PAIN Time Seen by Provider: 05/24/24 11:38 Source: patient Mode of arrival: ambulatory Limitations: no limitations History of Present Illness HPI Narrative: Patient is an 78-year-old male with left hip and left lower back pain on and off for the past year and has had shots of steroid. They have called bursitis. He is here by ambulance for acute left hip pain and occasional sciatic left leg shooting pain. MD elicited complaint: back pain ( Left) and other ( left hip) Pertinent past history: prior back pain Onset (ago): year(s) Timing: intermittent Severity: moderate Pain scale (0-10): 8 Similar Symptoms Previously: Yes Quality: sharp Location: lumbar spine ( left hip) Radiation: none Exacerbating factors: movement and walking Relieving factors: immobilization Context: other ( patient has chronic and recurrent acute left hip and lower back pain with sciatica here for acute changes) Associated symptoms: denies other symptoms Treatments prior to arrival: acetaminophen and other medications ( steroid injections into the left bursa hip done in the past) Work related injury: No Related Data Home Medications ?Medication ?Instructions ?Recorded ?Confirmed ?Last Taken ?Type calcium carbonate (Tums Freshers) 500 mg PO DAILY 05/12/22 02/11/24 Unknown History cholecalciferol (vitamin D3) 50 50 mcg PO DAILY 05/19/23 02/11/24 Unknown History mcg (2,000 unit) capsule Allergies Allergy/AdvReac Type Severity Reaction Status Date / Time No Known Allergies Allergy Verified 05/24/24 11:42 Review of Systems Review of Systems: All systems reviewed & are unremarkable except as noted in HPI and below Constitutional: Constitutional: Reports no additional constitutional complaints Eyes: Eyes: Reports no additional eye complaints ENT: Reports system reviewed and no additional complaints, except as documented Cardiovascular: Cardiovascular: Reports no additional cardiovascular complaints Respiratory: Respiratory: Reports no additional respiratory complaints Gastrointestinal: Gastrointestinal: Reports no additional gastrointestinal complaints Genitourinary: Genitourinary: Reports no additional male genitourinary complaints Musculoskeletal: Musculoskeletal: Reports no additional musculoskeletal complaints Integumentary/Breasts: Skin/Breast: Reports system reviewed and no additional complaints, except as docu Neurologic: Reports system reviewed and no additional complaints, except as documented Psychiatric: Psychiatric: Reports no additional psychiatric complaints Endocrine: Endocrine: Reports no additional endocrine complaints Hematologic/Lymphatic: Hematologic/Lymphatic: Reports no additional hematologic/lymphatic complaints Allergic/Immunologic: Allergic/Immunologic: Reports no additional allergic/immunologic complaints [facility] Past Medical History Medical History Diabetic peripheral neuropathy Secondary hyperparathyroidism, not elsewhere classified CKD (chronic kidney disease) With baseline creatinine between 1.6 and 1.9 Arthritis MARLENA (obstructive sleep apnea) Asthma CHF (congestive heart failure) Echocardiogram 2020 demonstrated diastolic dysfunction with normal EF Hypercholesterolemia Coronary artery disease Benign prostate hyperplasia Meniere disease COPD (chronic obstructive pulmonary disease) Depression Primary generalized (osteo)arthritis HTN (hypertension) PAUL (generalized anxiety disorder) Type 2 diabetes mellitus Surgical History Surgical History History of appendectomy Status post cataract extraction of both eyes with insertion of intraocular lens Status post hip surgery 10/15/19 Right bipolar hemiarthroplasty, Dr. Braxton History of coronary artery stent placement Family History Family History Mother Family history of coronary artery disease Father Leukemia Social History Social History Social History: The patient reportedly lives with his of approximately 53 years. He has smoked 3 cigars a week on average for the last 50 years. He used to drink alcohol in moderation but does not do so much anymore. He denies illicit substance use. 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 Code status: Full code Surrogate decision maker: Years smoked: 50 Smoking status: Current some day smoker Tobacco type: cigars Second hand tobacco smoke exposure: Yes Additional smoking assessment comments: approximately 3 cigars per week Alcohol intake: former Drinks per week: 1 Substance use: never Do You Feel Safe in your Home?: Yes Lack of Transportation: No Lack of Food: Never True Current Housing: I Have Housing Concerned About Future Housing: No Difficulty Paying Gas/Electric Bills: No Difficulty Paying for Meds: No Currently Unemployed: No Education: High School Diploma/GED Difficulty w/ Childcare or Family Care: No Living arrangements: with family Occupation/Education: retired Gender identity (if verbalized by the patient): Male Spiritual care concerns: No Exam Const: General: healthy appearing Nutritional Appearance: well nourished Orientation/consciousness: patient oriented x3 HENMT: Head: normal to inspection Ears: external ears normal Face/Nose/Sinus: Normal external nose present Eyes: Conjunctivae: conjunctivae normal Pupils: Equal, round and reactive pupils present EOM: EOMs intact bilaterally Neck: Neck: normal visual inspection Chest: Chest palpation & inspection: normal inspection of the chest Resp: Effort & Inspection: normal respiratory effort and not labored Ausc ultation: clear to auscultation bilaterally and no crackles Cardio: Rate: regular rate Rhythm: regular rhythm Heart sounds: no murmurs GI: Inspection: non-distended GI Palp: Yes Soft to palpation and No Tenderness to palpation present (GI) Auscultation: normal bowel sounds : General: Yes bladder normal to palpation Back/Spine/Pelvis: Back: no CVA tenderness Other: left lower back pain to palpation Skin: General skin exam: normal color Rashes: no rashes Wounds: no wounds Neuro: General: patient oriented x3 Cranial nerves: Yes Nystagmus not present Speech: normal speech Gait exam (Neuro): gait abnormal Other: difficulty walking secondary to left hip pain Extrem: General: abnormal to inspection Other: tender left hip bursitis laterally at the trochanteric bursa Psych: Mental Status: mental status grossly normal Affect: normal affect Attitude: cooperative Course Vital Signs Vital signs: Vital Signs Oxygen Delivery Room Air 05/24/24 11:35 Temperature 36.3 C L 05/24/24 11:37 Pulse Rate 88 05/24/24 11:37 Respiratory Rate 16 05/24/24 11:37 Blood Pressure 137/86 05/24/24 11:37 Pulse Oximetry 99 05/24/24 11:37 Oxygen Delivery Room Air 05/24/24 11:37 MDM - Back Pain/Injury MDM Narrative Medical decision making narrative: patient has acute on chronic left lower back and left hip pain. We will do x- rays and pain control. Imaging Data Attestation: I personally reviewed and interpreted this imaging study as follows: Radiologist's impression: X-ray of the left lumbar spine is negative for acute process as well as the left hip and pelvis were negative for acute process Discharge Plan Discharge Clinical Impression: Acute lumbar radiculopathy, Bursitis of left hip Patient Disposition: Home, Self-Care Condition: Improved Instructions: Sciatica (ED), Back Pain (ED) Patient Language: Divehi Prescriptions: New methylprednisolone [Medrol (Nic)] 4 mg tablets,dose pack See Rx Instructions .ROUTE .COMPLEX Qty: 21 0RF Rx Instructions: orally per package directions hydrocodone-acetaminophen 5-325 mg tablet 1 tablet PO Q8H PRN (Reason: pain) Qty: 20 0RF Rx Instructions: 1-2 tabs per dose cyclobenzaprine 10 mg tablet 10 mg PO BID Qty: 20 0RF No Action cholecalciferol (vitamin D3) 50 mcg (2,000 unit) capsule 50 mcg PO DAILY calcium carbonate [Tums Freshers] 200 mg calcium (500 mg) tablet,chewable 500 mg PO DAILY Trulicity 1.5 mg/0.5 mL pen injector 1.5 mg subcut WEEKLY Qty: 6 2RF (DME) pen needle, diabetic 32 gauge x 1/6 needle See Rx Instructions .Route Qty: 100 3RF Rx Instructions: As directed (DME) pen needle, diabetic [BD Ultra-Fine Micro Pen Needle] 32 gauge x 1/4 ne edle See Rx Instructions .ROUTE .COMPLEX Qty: 100 5RF Dose Instruction: DIRECTED. ONCE DAILY. DX: E11.9 Rx Instructions: DIRECTED. ONCE DAILY. DX: E11.9 budesonide-formoterol [Symbicort] 160-4.5 mcg/actuation HFA aerosol inhaler See Rx Instructions .ROUTE .COMPLEX Qty: 30.6 3RF Dose Instruction: INHALE 2 PUFFS BY MOUTH EVERY 12 HOURS. Rx Instructions: INHALE 2 PUFFS BY MOUTH EVERY 12 HOURS. atorvastatin 20 mg tablet 20 mg PO HS Qty: 30 5RF metoprolol succinate 100 mg tablet extended release 24 hr 100 mg PO DAILY Qty: 30 5RF Tresiba FlexTouch U-100 100 unit/mL (3 mL) insulin pen See Rx Instructions .ROUTE .COMPLEX Qty: 15 2RF Dose Instruction: 15 UNIT (0.15 ML) SUBCUTANEOUSLY EVERY DAY AT BEDTIME Rx Instructions: 15 UNIT (0.15 ML) SUBCUTANEOUSLY EVERY DAY AT BEDTIME furosemide 20 mg tablet See Rx Instructions .ROUTE .COMPLEX Qty: 90 2RF Dose Instruction: TAKE 1 TABLET BY MOUTH EVERY DAY Rx Instructions: TAKE 1 TABLET BY MOUTH EVERY DAY dapagliflozin propanediol [Farxiga] 5 mg tablet See Rx Instructions .ROUTE .COMPLEX Qty: 90 1RF Dose Instruction: TAKE 1 TABLET BY MOUTH EVERY DAY Rx Instructions: TAKE 1 TABLET BY MOUTH EVERY DAY nitroglycerin 0.4 mg tablet, sublingual See Rx Instructions .ROUTE .COMPLEX Qty: 25 3RF Dose Instruction: DISSOLVE 1 TABLET UNDER TONGUE EVERY 5 MINUTES NEEDED FOR CHEST PAIN MAX 3 TABS/ EPISODE Rx Instructions: DISSOLVE 1 TABLET UNDER TONGUE EVERY 5 MINUTES NEEDED FOR CHEST PAIN MAX 3 TABS/ EPISODE sertraline 100 mg tablet See Rx Instructions .ROUTE .COMPLEX Qty: 90 2RF Dose Instruction: TAKE 1 TABLET BY MOUTH EVERY DAY Rx Instructions: TAKE 1 TABLET BY MOUTH EVERY DAY omeprazole 20 mg capsule,delayed release(DR/EC) See Rx Instructions .ROUTE .COMPLEX Qty: 90 3RF Dose Instruction: TAKE 1 CAPSULE BY MOUTH EVERY DAY Rx Instructions: TAKE 1 CAPSULE BY MOUTH EVERY DAY meclizine 25 mg tablet See Rx Instructions .ROUTE .COMPLEX Qty: 90 1RF Dose Instruction: TAKE 1 TABLET BY MOUTH TWICE A DAY NEEDED FOR DIZZINESS Rx Instructions: TAKE 1 TABLET BY MOUTH TWICE A DAY NEEDED FOR DIZZINESS (DME) True Metrix Glucose Test Strip Strip See Rx Instructions .ROUTE .COMPLEX Qty: 100 3RF Dose Instruction: TESTING DAILY DX:E11.9 Rx Instructions: TESTING DAILY DX:E11.9 Follow-up/Referrals: Robbin Garcia DO [Primary Care Provider] - Time of Disposition: 13:15
[2024-05-24] MEDS: predniSONE 20 MG TABLET 40 MG PO (12:36)
[2024-05-24] MEDS: ORPHENADRINE CITRATE 30 MG/ML 2 ML VIAL 60 MG IM (12:38)
[2024-05-24] MEDS: KETOROLAC (*BKC) 60 MG/2 ML VIAL IM (12:39)
[2024-05-24 13:28] VITALS: BP 112/76; PULSE 83; RESP 16; O2SAT 96
--- NOTE | 2024-05-24 13:41 | PC.NURSE ---
ASSISTS PT WITH DRESSING. PT IS ABLE TO TRANSFER FROM STRETCHER TO WC AND WC TO POV WITH MINIMAL ASSISTANCE, REPORTS PAIN HAS IMPROVED.
--- OUTSIDE RECORDS SUMMARY | 2024-05-24 13:42 | XMS_ITS | Clinical Summary ---
Author Organization [facility] Tori Kangnahid Address [address] [place] [address] Care Team Providers Care Maintenance Mechanic Millwright Name Role Phone Robbin Garcia DO Primary Care Provider Allergies No known active allergies Medications budesonide-form [...] Encounters Date Type Department Care Team Description 05/18/2024 External Device Data STL ABSTRACTION Provider, Abstract 04/21/2024 External Device Data STL ABSTRACTION Provider, Abstract 04/06/2024 1:00 PM CARD HANGER Office Visit [facility] On[facility] and Hematology - [place] [address] [place] [address] Humberto Bray MD 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) 03/25/2024 Orders Only [facility] Oncology and Hematology - [place] [address] [place] [address] Humberto Bray MD 03/21/2024 Orders Only [facility] Oncology and Hematology - [place] [address] [place] [address] Humberto Bray MD from Last 3 Months [...] on file Legal Sex Male 8:25 AM CARD HANGER Gender Identity Not on file Sexual Orientation Not on file Last Filed Vital Signs Vital Sign Reading Time Taken Comments Blood Pressure 122/74 04/06/2024 1:03 PM CARD HANGER Pulse 89 04/06/2024 1:03 PM CARD HANGER Temperature 36.2 C (97.2 F) 04/06/2024 1:03 PM CARD HANGER Respiratory Rate 16 04/06/2024 1:03 PM CARD HANGER Oxygen Saturation 92% 04/06/2024 1:03 PM CARD HANGER Inhaled Oxygen Concentration - - Weight 75.3 kg (166 lb) 04/06/2024 1:03 PM CARD HANGER Height 175.3 cm (5' 9 ) 05/04/2023 2:53 PM CARD HANGER Body Mass Index 24.51 05/04/2023 2:53 PM CARD HANGER Plan of Treatment Upcoming Encounters Date Type Department Care Team (Late st Contact Info) Description 06/01/2024 10:00 AM CARD HANGER Office Visit [facility] Oncology and Hematology - [place] [address] [facility] [address] [place] [address] Humberto Bray MD [address] [facility] [address] [place] [address] Health Maintenance Due Date Last [...] COMPREHENSIVE METABOLIC PANEL Routine 03/21/2024 3:[address] CHEST ABDOMEN PELVIS W CONT Routine 03/21/2024 2:32 PM CARD HANGER CEA Routine 03/21/2024 12:20 PM CARD HANGER from Last 3 Months Results * COMPREHENSIVE METABOLIC PANEL (03/21/2024 3:28 PM CARD HANGER) Blood Humberto Bray MD CHEMISTRY ORDERABLES Final Resu lt * CT CHEST ABDOMEN PELVIS W CONT (03/21/2024 2:32 PM CARD HANGER) Anatomical Region Laterality Modality Chest Other Humberto Bray MD CT ORDERABLES Final Result * CEA (03/21/2024 12:20 PM CARD HANGER) Blood Humbreto Bray MD CHEMISTRY ORDERABLES Final Resu lt from Last 3 Months Insurance MEDICARE PART A AND B [facility] Care Teams Maintenance Mechanic Millwright Relationship Specialty Start Date End Date Robbin Garcia DO [address] [place] [address] PCP - General Family Practice 04/29/23
--- OUTSIDE RECORDS SUMMARY | 2024-05-24 13:42 | XMS_ITS | Encounter Summary ---
Author Organization [facility] Address [address] [place] [address] Care Team Providers Care Archery Equipment Hay Sorter Name Role Phone Bird Castillo MD Primary Care Provider Remi Hess MD, Joshua D MD Primary Care Provider [phone] Luna Bhagat [facility] Primary Care Provider [phone] Encounter Details Date Type Department Care Team (Late st Contact Info) Description 01/11/2015 Abstract [facility] [place] [address] [place] [address] Remi Galan MD Social History [...] on filedocumented in this encounter Care Teams Archery Equipment Hay Sorter Relationship Specialty Start Date End Date Bird Castillo MD PCP - General SURGERY 12/12/15 11/16/18 Maged Robertson MD [address] [place] [address] PCP - General FAMILY PRACTICE 11/17/18 05/02/20 Luna Bhagat FNP [address] [place] [address] PCP - General NURSE PRACTITIONER 05/03/20 Remi Galan MD [place] Loan Operations Specialist CARDIOVASCULAR DISEASE 12/12/15 11/11/23 documented as of this encounter
--- OUTSIDE RECORDS SUMMARY | 2024-05-24 13:42 | XMS_ITS | Encounter Summary ---
Author Organization [facility] Address [address] [place] [address] Care Team Providers Care Admitting Counselor Name Role Phone Bird Castillo MD Primary Care Provider Remi Hess MD, Joshua D MD Primary Care Provider [phone] Luna Bhagat [facility] Primary Care Provider [phone] Encounter Details Date Type Department Care Team (Late st Contact Info) Description 06/13/2017 Abstract [facility] [address] [place] [address] , Generic MD Brian Social History Tobacco [...] on filedocumented in this encounter Care Teams Admitting Counselor Relationship Specialty Start Date End Date Bird Castillo MD PCP - General SURGERY 12/12/15 11/16/18 Maged Robertson MD [address] [place] [address] PCP - General FAMILY PRACTICE 11/17/18 05/02/20 Luna Bhagat FNP [address] [place] [address] PCP - General NURSE PRACTITIONER 05/03/20 Remi Galan MD [place] Service Line Coordinator CARDIOVASCULAR DISEASE 12/12/15 11/11/23 documented as of this encounter
--- OUTSIDE RECORDS SUMMARY | 2024-05-24 13:42 | XMS_ITS | Clinical Summary ---
Author Organization [facility] Address [address] [place] [address] Phone Care Team Providers Care Tax Investigator Name Role Phone Luna Bhagat MARINA Primary Care Provider [phone] Allergies No known active allergies Medications Medication [...] Influenza Vaccine (#1) 2023 01/11/2021 Care Teams Tax Investigator Relationship Specialty Start Date End Date Lnua Bhagat FNP PCP - General Family Medicine 11/03/19
--- OUTSIDE RECORDS SUMMARY | 2024-05-24 13:42 | XMS_ITS | Encounter Summary ---
Author Organization [facility] Address [address] [place] [address] Care Team Providers Care Employee Benefits Manager Name Role Phone Bird Castillo MD Primary Care Provider Remi Hess MD, Joshua D MD Primary Care Provider [phone] Luna Bhagat [facility] Primary Care Provider [phone] Encounter Details Date Type Department Care Team (Late st Contact Info) Description 03/26/2016 Abstract [facility] [address] [place] [address] Remi Galan MD Social History [...] on filedocumented in this encounter Care Teams Employee Benefits Manager Relationship Specialty Start Date End Date Bird Castillo MD PCP - General SURGERY 12/12/15 11/16/18 Maged Robertson MD [address] [place] [address] PCP - General FAMILY PRACTICE 11/17/18 05/02/20 Luna Bhagat FNP [address] [place] [address] PCP - General NURSE PRACTITIONER 05/03/20 Remi Galan MD [place] Extrusion Manager CARDIOVASCULAR DISEASE 12/12/15 11/11/23 documented as of this encounter
--- OUTSIDE RECORDS SUMMARY | 2024-05-24 13:42 | XMS_ITS | Clinical Summary ---
Author Organization [facility] Address [address] [place] [address] Care Team Providers Care Driver Merchandiser Name Role Phone Luna Bhagat FRONT OFFICE SECRETARY Primary Care Provider [phone] Allergies No known active allergies Medications meclizine [...] disease) COPD (chronic obstructive pu lmonary disease) ([facility]) Asthma ([facility]) Arthritis Family History Medical History Relation [...] Comments LIPID PANEL Routine 03/25/2014 12:00 AM CHIEF ACCOUNTANT from Last 3 Months or Most Recently Relevant to Health Maintenance Results * LIPID PANEL (03/25/2014 12:00 AM CHIEF ACCOUNTANT) TRIGLYCERIDES 158 0 - 150 mg/dl MEDINFORMATIX TO EPIC CONVERSION CHOLESTEROL 153 0 - 200 mg/dl MEDINFORMATIX TO EPIC CONVERSION HDL 52 40 - 59 mg/dl MEDINFORMATIX TO EPIC CONVERSION LDL CONVERSION 69 0 - 100 mg/dl MEDINFORMATIX TO EPIC CONVERSION CHOL/HDL RATIO 2.9 <4.0 (Calc) MEDINFORMATIX TO EPIC CONVERSION 03/25/2014 03/25/2014 Narrative MEDINFORMATIX TO EPIC CONVERSION - 03/27/2014 12:56 PM CHIEF ACCOUNTANT Reviewed by DOTTY Mar 27 2014 12:56:51:000PM us Generic Conversion Md [facility] Final R esult MEDINFORMATIX TO EPIC CONVERSION from Last 3 Months or Most Recently Relevant to Health Maintenance Insurance [facility] [place] [id number] [id number] [facility] Care Teams Driver Merchandiser Relationship Specialty Start Date End Date Luna Bhagat, MARINA [address] [place] [address] PCP - General NURSE PRACTITIONER 05/03/20
--- OUTSIDE RECORDS SUMMARY | 2024-05-24 14:09 | XMS_ITS | Encounter Summary ---
Author Organization [facility] Address [address] [place] [address] Care Team Providers Care Risk Engineer Name Role Phone Bird Castillo MD Primary Care Provider Remi Hess MD, Joshua D MD Primary Care Provider [phone] Luna Bhagat [facility] Primary Care Provider [phone] Encounter Details Date Type Department Care Team (Late st Contact Info) Description 06/13/2017 Abstract [facility] CONVERSION [address] [place] [address] , Generic MD Brian Social History Tobacco [...] on filedocumented in this encounter Care Teams Risk Engineer Relationship Specialty Start Date End Date Bird Castillo MD PCP - General SURGERY 12/12/15 11/16/18 Maged Robertson MD [address] [place] [address] PCP - General FAMILY PRACTICE 11/17/18 05/02/20 Luna Bhagat FNP [address] [place] [address] PCP - General NURSE PRACTITIONER 05/03/20 Remi Galan MD [place] Manager Functional CARDIOVASCULAR DISEASE 12/12/15 11/11/23 documented as of this encounter
--- OUTSIDE RECORDS SUMMARY | 2024-05-24 14:09 | XMS_ITS | Encounter Summary ---
Author Organization [facility] Address [address] [place] [address] Care Team Providers Care Camera Engineer Name Role Phone Bird Castillo MD Primary Care Provider Remi Hess MD, Joshua D MD Primary Care Provider [phone] Luna Bhagat [facility] Primary Care Provider [phone] Encounter Details Date Type Department Care Team (Late st Contact Info) Description 01/11/2015 Abstract [facility] [place] [address] [place] [address] Remi Galan MD Social History [...] on filedocumented in this encounter Care Teams Camera Engineer Relationship Specialty Start Date End Date Bird Castillo MD PCP - General SURGERY 12/12/15 11/16/18 Maged Robertson MD [address] [place] [address] PCP - General FAMILY PRACTICE 11/17/18 05/02/20 Luna Bhagat FNP [address] [place] [address] PCP - General NURSE PRACTITIONER 05/03/20 Remi Galan MD [place] Cripple Worker CARDIOVASCULAR DISEASE 12/12/15 11/11/23 documented as of this encounter
--- OUTSIDE RECORDS SUMMARY | 2024-05-24 14:09 | XMS_ITS | Clinical Summary ---
Author Organization [facility] Address [address] [place] [address] Phone Care Team Providers Care Cert Occupational Therapy Asst Name Role Phone Luna Bhagat MARINA Primary Care Provider [phone] Allergies No known active allergies Medications Medication [...] Influenza Vaccine (#1) 2023 01/11/2021 Care Teams Cert Occupational Therapy Asst Relationship Specialty Start Date End Date Luna Bhagat FNP PCP - General Family Medicine 11/03/19
--- OUTSIDE RECORDS SUMMARY | 2024-05-24 14:09 | XMS_ITS | Encounter Summary ---
Author Organization [facility] Address [address] [place] [address] Care Team Providers Care Capital Campaign Fundraiser Name Role Phone Bird Castillo MD Primary Care Provider Remi Hess MD, Joshua D MD Primary Care Provider [phone] [facility] Primary Care Provider [phone] Encounter Details Date Type Department Care Team (Late st Contact Info) Description 03/26/2016 Abstract [facility] [address] [place] [address] Remi Galan MD Social History [...] on filedocumented in this encounter Care Teams Capital Campaign Fundraiser Relationship Specialty Start Date End Date Bird Castillo MD PCP - General SURGERY 12/12/15 11/16/18 Maged Robertson MD [address] [place] [address] PCP - General FAMILY PRACTICE 11/17/18 05/02/20 Luna Bhagat FNP [address] [place] [address] PCP - General NURSE PRACTITIONER 05/03/20 Remi Galan MD [place] Moisture Meter Reader CARDIOVASCULAR DISEASE 12/12/15 11/11/23 documented as of this encounter
--- OUTSIDE RECORDS SUMMARY | 2024-05-24 14:09 | XMS_ITS | Clinical Summary ---
Author Organization [facility] Address [address] [place] [address] Care Team Providers Care Local Hazmat Driver Name Role Phone Luna Bhagat CAFETERIA COOK Primary Care Provider [phone] Allergies No known active allergies Medications meclizine [...] disease) COPD (chronic obstructive pu lmonary disease) ([facility]) Asthma ([facility]) Arthritis Family History Medical History [...] Comments LIPID PANEL Routine 03/25/2014 12:00 AM CROP GRAIN OR LIVESTOCK FARMER from Last 3 Months or Most Recently Relevant to Health Maintenance Results * LIPID PANEL (03/25/2014 12:00 AM CROP GRAIN OR LIVESTOCK FARMER) TRIGLYCERIDES 158 0 - 150 mg/dl MEDINFORMATIX TO EPIC CONVERSION CHOLESTEROL 153 0 - 200 mg/dl MEDINFORMATIX TO EPIC CONVERSION HDL 52 40 - 59 mg/dl MEDINFORMATIX TO EPIC CONVERSION LDL CONVERSION 69 0 - 100 mg/dl MEDINFORMATIX TO EPIC CONVERSION CHOL/HDL RATIO 2.9 <4.0 (Calc) MEDINFORMATIX TO EPIC CONVERSION 03/25/2014 03/25/2014 Narrative MEDINFORMATIX TO EPIC CONVERSION - 03/27/2014 12:56 PM CROP GRAIN OR LIVESTOCK FARMER Reviewed by DOTTY Mar 27 2014 12:56:51:000PM us Generic Conversion Md [facility] Final R esult MEDINFORMATIX TO EPIC CONVERSION from Last 3 Months or Most Recently Relevant to Health Maintenance Insurance [facility] [place] [id number] MEDICARE [facility] Care Teams Local Hazmat Driver Relationship Specialty Start Date End Date Luna Bhagat, MARINA [address] [place] [address] PCP - General NURSE PRACTITIONER 05/03/20
--- OUTSIDE RECORDS SUMMARY | 2024-05-24 14:09 | XMS_ITS | Clinical Summary ---
Author Organization [facility] Tori Kangnahid Address 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) 03/25/2024 Orders Only [facility] Oncology and Hematology - [place] [address] [place] [address] Humberto Bray MD 03/21/2024 Orders Only [facility] Oncology and Hematology - [place] [address] [place] [address] Humberto Bray MD from Last 3 Months [...] on file Legal Sex Male 8:25 AM BLIND ESCORT Gender Identity Not on file Sexual Orientation Not on file Last Filed Vital Signs Vital Sign Reading Time Taken Comments Blood Pressure 122/74 04/06/2024 1:03 PM BLIND ESCORT Pulse 89 04/06/2024 1:03 PM BLIND ESCORT Temperature 36.2 C (97.2 F) 04/06/2024 1:03 PM BLIND ESCORT Respiratory Rate 16 04/06/2024 1:03 PM BLIND ESCORT Oxygen Saturation 92% 04/06/2024 1:03 PM BLIND ESCORT Inhaled Oxygen Concentration - - Weight 75.3 kg (166 lb) 04/06/2024 1:03 PM BLIND ESCORT Height 175.3 cm (5' 9 ) 05/04/2023 2:53 PM BLIND ESCORT Body Mass Index 24.51 05/04/2023 2:53 PM BLIND ESCORT Plan of Treatment Upcoming Encounters Date Type Department Care Team (Late st Contact Info) Description 06/01/2024 10:00 AM BLIND ESCORT Office Visit [facility] Oncology and Hematology - [place] [address] [facility] [address] [place] [address] Humberto Bray MD [address] [facility] [address] [place] [address] Health Maintenance Due Date Last [...] COMPREHENSIVE METABOLIC PANEL Routine 03/21/2024 3:[address] CHEST ABDOMEN PELVIS W CONT Routine 03/21/2024 2:32 PM BLIND ESCORT CEA Routine 03/21/2024 12:20 PM BLIND ESCORT from Last 3 Months Results * COMPREHENSIVE METABOLIC PANEL (03/21/2024 3:28 PM BLIND ESCORT) Blood Humberto Bray MD CHEMISTRY ORDERABLES Final Resu lt * CT CHEST ABDOMEN PELVIS W CONT (03/21/2024 2:32 PM BLIND ESCORT) Anatomical Region Laterality Modality Chest Other Humberto Bray MD CT ORDERABLES Final Result * CEA (03/21/2024 12:20 PM BLIND ESCORT) Blood Humberto Bray MD CHEMISTRY ORDERABLES Final Resu lt from Last 3 Months Insurance MEDICARE PART A AND B [facility] Care Teams Reed Press Feeder Relationship Specialty Start Date End Date Robbin Garcia DO [address] [place] [address] PCP - General Family Practice 04/29/23
== END 2024-05-24 13:21 | disposition home or self-care (01) ==
PROVIDERS: Emergency Provider Emergency Medicine; PCP Family Medicine
DX: M70.62 Trochanteric bursitis, left hip (principal); M54.16 Radiculopathy, lumbar region; M25.552 Pain in left hip; I13.0 Hypertensive heart and chronic kidney disease with heart failure and stage 1 through stage 4 chronic kidney disease, or unspecified chronic kidney disease; E11.22 Type 2 diabetes mellitus with diabetic chronic kidney disease; N18.9 Chronic kidney disease, unspecified; I50.9 Heart failure, unspecified; J44.9 Chronic obstructive pulmonary disease, unspecified; I25.10 Atherosclerotic heart disease of native coronary artery without angina pectoris; F17.210 Nicotine dependence, cigarettes, uncomplicated
CPT/HCPCS: 72100; 73502; 96372; 99284; J1885; J2360; J7512

== ENCOUNTER 2024-07-18 13:06 | Outpatient (CLI) | payer MEDICARE, SELFPAY ==
[2024-07-18 13:38] LABS: Anion Gap 4 mmol/L (4-12); Blood Urea Nitrogen 25 mg/dL (7-18); Calcium 8.4 mg/dL (8.5-10.1); Carbon Dioxide 34 mmol/L (21-32); Chloride 101 mmol/L (98-108); Estimated Glomerular Filt Rate 33; Glucose 274 mg/dL (70-99); Osmolality Calculated 302 mOsm/kg (285-295); Potassium 4.8 mmol/L (3.5-5.1); Sodium 139 mmol/L (136-145)
--- OUTSIDE RECORDS SUMMARY | 2024-07-18 14:43 | XMS_ITS | Encounter Summary ---
Author Organization [facility] Address [address] [place] [address] Care Team Providers Care Prison Classification Counselor Name Role Phone Bird Castillo MD Primary Care Provider Remi Hess MD Unavailable Maged Robertson MD Primary Care Provider [phone] Luna Bhagat [facility] Primary Care Provider [phone] Encounter Details Date Type Department Care Team (Late st Contact Info) Description 01/11/2015 Abstract [facility] [place] [address] [place] [address] Remi Galan MD [address] [place] [address] Social History Tobacco Use Types Packs/Day Years [...] on filedocumented in this encounter Care Teams Prison Classification Counselor Relationship Specialty Start Date End Date Bird Castillo MD PCP - General SURGERY 12/12/15 11/16/18 Maged Robertson MD [address] [place] [address] PCP - General FAMILY PRACTICE 11/17/18 05/02/20 Luna Bhagat FNP [address] [place] [address] PCP - General NURSE PRACTITIONER 05/03/20 Remi Galan MD [address] [place] [address] [place] Hydro Sprayer Operator CARDIOVASCULAR DISEASE 12/12/15 11/11/23 documented as of this encounter
--- OUTSIDE RECORDS SUMMARY | 2024-07-18 14:43 | XMS_ITS | Encounter Summary ---
Author Organization [facility] Address [address] [place] [address] Care Team Providers Care Blood Donor Unit Assistant Name Role Phone Bird Castillo MD Primary Care Provider Remi Hess MD Unavailable [phone] Maged Robertson MD Primary Care Provider [phone] Luna Bhagat CONVERTING TECHNICIAN Primary Care Provider [phone] Encounter Details Date Type Department Care Team (Late st Contact Info) Description 06/13/2017 Abstract [facility] [address] [place], [place] [id number] , Generic ConversionMD Social History Tobacco Use Types Packs/Day Years [...] on filedocumented in this encounter Care Teams Blood Donor Unit Assistant Relationship Specialty Start Date End Date Bird Castillo MD PCP - General SURGERY 12/12/15 11/16/18 Maged Robertson MD [address] [place] [address] PCP - General FAMILY PRACTICE 11/17/18 05/02/20 Luna Bhagat FNP [address] [place] [address] PCP - General NURSE PRACTITIONER 05/03/20 Remi Galan MD [address] [place] [address] [place] Marketing Technology Specialist CARDIOVASCULAR DISEASE 12/12/15 11/11/23 documented as of this encounter
--- OUTSIDE RECORDS SUMMARY | 2024-07-18 14:43 | XMS_ITS | Encounter Summary ---
Author Organization [facility] Address [address] [place] [address] Care Team Providers Care Internal Medicine Specialist Name Role Phone Bird Castillo MD Primary Care Provider Remi Hess MD Unavailable [phone] Maged Robertson MD Primary Care Provider [phone] Luna Bhagat [facility] Primary Care Provider [phone] Encounter Details Date Type Department Care Team (Late st Contact Info) Description 03/26/2016 Abstract [facility] [address] [place] [address] Remi Galan MD [address] [place] [address] Social History Tobacco Use Types Packs/Day Years [...] on filedocumented in this encounter Care Teams Internal Medicine Specialist Relationship Specialty Start Date End Date Bird Castillo MD PCP - General SURGERY 12/12/15 11/16/18 Maged Robertson MD [address] [place] [address] PCP - General FAMILY PRACTICE 11/17/18 05/02/20 Luna Bhagat, MEDICAL OFFICE COORDINATOR [address] [place] [address] PCP - General NURSE PRACTITIONER 05/03/20 Remi Galan MD [address] [place] [address] [place] Food Mixer Repairer CARDIOVASCULAR DISEASE 12/12/15 11/11/23 documented as of this encounter
--- OUTSIDE RECORDS SUMMARY | 2024-07-18 14:43 | XMS_ITS | Clinical Summary ---
Author Organization [facility] Address [address] [place] [address] Care Team Providers Care Research Laboratory Specialist Name Role Phone Luna Bhagat CAT WAGON OPERATOR Primary Care Provider [phone] Allergies No known active allergies Medications meclizine 25 MG tablet Take 1 tablet (25 mg total) by mouth 2 (two) times a day. 5 Active nitroglycerin (NITROSTAT) 0.4 MG SL tablet Nitrostat (nitroglycerin) Tablet, Sublingual 0.4 mg; take 1 tablet under tongue, for chest pain as directed; 0; 17-Feb-2011; Active 1 Active PROAIR HFA 108 (90 [...] disease) COPD (chronic obstructive pu lmonary disease) ([facility]) Asthma ([facility]) Arthritis Family History Medical History Relation [...] Date Last Done Comments ASCVD Statin 1945 DTaP, Tdap and Td Vaccines ( 1 - Tdap) 06/27/1962 Pneumococcal Vaccine: 50+ Ye ars (1 of 2 - PCV) 06/27/1962 11/28/2017 Zoster Vaccines (1 of 2) 06/27/1993 Annual Medicare Wellness Visit 06/27/2008 ASCVD LDL 03/25/2015 03/25/2014 RSV Immunization or 60+ Years (1 - 1-dose 75+ series) 06/27/2018 COVID-19 Vaccine (2023-2 5 season) 2023 Meningococcal B Vaccine Aged Out No l onger eligible based on patient's age to complete this topic Meningococcal Vaccine Aged Out No elijah chau eligible based on patient's age to complete this topic RSV Immunizations Under 20 Months Aged Out No longer eligible based on patient's age to complete this topic Procedures Procedure Name Priority Date/Time Associated Diagnosis Comments LIPID PANEL Routine 03/25/2014 12:00 AM PLANNING COORDINATOR from Last 3 Months or Most Recently Relevant to Health Maintenance Results * LIPID PANEL (03/25/2014 12:00 AM PLANNING COORDINATOR) TRIGLYCERIDES 158 0 - 150 mg/dl MEDINFORMATIX TO EPIC CONVERSION CHOLESTEROL 153 0 - 200 mg/dl MEDINFORMATIX TO EPIC CONVERSION HDL 52 40 - 59 mg/dl MEDINFORMATIX TO EPIC CONVERSION LDL CONVERSION 69 0 - 100 mg/dl MEDINFORMATIX TO EPIC CONVERSION CHOL/HDL RATIO 2.9 <4.0 (Calc) MEDINFORMATIX TO EPIC CONVERSION 03/25/2014 03/25/2014 Narrative MEDINFORMATIX TO EPIC CONVERSION - 03/27/2014 12:56 PM PLANNING COORDINATOR Reviewed by DOTTY Mar 27 2014 12:56:51:000PM us Generic Conversion Md [facility] Final R esult MEDINFORMATIX TO EPIC CONVERSION from Last 3 Months or Most Recently Relevant to Health Maintenance Insurance [place] Care Teams Research Laboratory Specialist Relationship Specialty Start Date End Date Luna Bhagat, MARINA [address] [place] [address] PCP - General NURSE PRACTITIONER 05/03/20
--- OUTSIDE RECORDS SUMMARY | 2024-07-18 14:44 | XMS_ITS | Clinical Summary ---
Author Organization [facility] Celia fine Address [address] [place] [address] Phone Care Team Providers Care Supervisor Computer Operations Name Role Phone Luna Bhagat MARINA Primary Care Provider [phone] Allergies No known active allergies Medications albuterol HFA (PROVENTIL HFA;VENTOLIN HFA) 108 (90 Base) MCG/ACT inhaler INHALE 1 PUFF BY MOUTH EVERY 4 HOURS 0 Active atorvastatin (LIPITOR) 20 MG tablet Take 20 mg by mouth 1 (one) time each day 0 Active SYMBICORT 160-4.5 MCG/ACT inhaler INHALE 2 PUFFS BY MOUTH EVERY 12 HOURS 0 Active TRUE METRIX BLOOD GLUCOSE TEST test strip USE FOR TESTING DAILY DX E11.9 0 Active meclizine (ANTIVERT) 25 MG tablet TAKE 1 TABLET BY MOUTH TWICE A DAY NEEDED FOR DIZZINESS 0 Active metoprolol tartrate (LOPRESSOR) 50 MG tablet Take 50 mg by mouth 1 (one) time each day 0 Active nitroglycerin (NITROSTAT) 0.[address] 0.4 mg under the tongue 1 Active ranolazine (RANEXA) 500 MG 12 hr tablet Take 500 mg by mouth 2 times daily 7 Active traMADol (ULTRAM) 50 MG tablet Take 50 mg by mouth every 6 (six) hours if needed for pain 0 Active BD Pen Needle Sola U/F 32G X 4 MM misc USE DIRECTED EVERY DAY WITH TRESIBA 1 Active DULoxetine (CYMBALTA) [address] capsule Take 30 mg by mouth 1 (one) time each day 1 Active Tresiba FlexTouch 100 UNIT/ML injection INJECT 12 UNITS SUBCUTANEOUSLY DAILY 1 Active omeprazole (PriLOSEC) [address] capsule Take 20 mg by mouth 1 (one) time each day 1 Active metoprolol succinate XL (TOPROL-XL) 50 MG 24 hr tablet Take 50 mg by mouth 1 (one) time each day in the morning 1 Active furosemide (LASIX) 20 MG tablet Take 20 mg by mouth 1 (one) time each day Active Trulicity 3 MG/0.5ML solution pen-injector 1 Active Farxiga 5 MG tablet Take 1 tablet by mouth 1 (one) time each day 2 Active predniSONE (DELTASONE) 20 MG tablet TAKE 2 TABLETS BY MOUTH DAILY IN THE MORNING 2 Active calcium carbonate (TUMS) 500 MG chewable tablet Chew 500 mg 2 (two) times a day with meals Active Active Problems Problem Noted Date Diagnosed Date Stage 3b chronic kidney disease 12/06/2019 Chronic obstructive pulmonary disease 12/01/2019 Gastroesophageal reflux disease 12/01/2019 Coronary arteriosclerosis 01/13/2016 Hypertensive disorder 01/13/2016 Obstructive sleep apnea syndrome 01/13/2016 Overview (12/01/2019): CPAP for sleep apnea Chest pain 01/13/2016 History of placement of stent for coronary arter y disease 01/13/2016 Immunizations Immunization Administration Dates Next Due Fluzone High-Dose 02/13/2020 [...] at Not on file Legal Sex Male 10:51 AM MDT Gender Identity Not on file Sexual Orientation [...] Medium Risk (1 of 4 - PCV) 06/27/1993 Influenza Vaccine (Season Ended) 2024 01/12/20 21 Insurance MEDICARE [facility] MEDICARE [place] [id number] Care Teams Supervisor Computer Operations Relationship Specialty Start Date End Date Luna Bhagat FNP PCP - General Family Medicine 11/03/19
--- OUTSIDE RECORDS SUMMARY | 2024-07-18 14:44 | XMS_ITS | Clinical Summary ---
Author Organization [facility] Tori Kangnahid Address [address] [place] [address] Care Team Providers Care Iron Launder Operator Name Role Phone Robbin Garcia DO Primary Care Provider [phone] Allergies No known active allergies Medications budesonide-form oteroL (SYMBICORT) 160-4.5 mcg/actuation HFA Aerosol Inhaler Take 2 Puffs by inhalation 2 times daily. Active calcium as carbonate (CALCI-CHEW) 1,250 mg (500 mg elemental) Tablet, Chewable Take 500 mg by mouth. Active dapagliflozin propanediol (Farxiga) 5 mg Tablet Take 1 Tablet by mouth daily. 09/08/19 22 Active furosemide (LASIX) 20 mg tablet Take 1 Tablet by mouth daily. 05/05/19 23 Active metoprolol succinate (TOPROL XL) 100 mg Extended Release 24 hour tablet Take 1 1/2 tablets (150 mg) in the am, 1 tablet (100 mg) in the pm 12/13/19 23 Active dulaglutide (Trulicity) 3 mg/0.5 mL injection 03/21/20 21 Active ranolazine ER (RANEXA) 500 mg Extended Release 12 hour tablet Take 1 Tablet by mouth every 12 hours. 03/09/20 23 Active insulin degludec (Tresiba FlexTouch U-100) 100 [...] tablet Take 1 Tablet by mouth daily. 05/28/19 24 Active ergocalciferol, vitamin D2, (VITAMIN D ORAL) Take by mouth. Activ e atorvastatin (LIPITOR) 20 mg tablet 20 MG ORALLY BEDTIME 05/12/19 25 Active Insulin [place], Disposable, (BD Ultra-Fine Short Pen Needle) 31 gauge x 5/16 Needle see administration instructions. 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 Asthma 05/04/2023 Arthritis 05/04/2023 Stage 3b chronic kidney disease 12/06/2019 Gastroesophageal reflux disease 12/01/2019 Chronic obstructive pulmonary disease 12/01/2019 Obstructive sleep apnea syndrome 01/13/2016 Overview (05/04/2023): CPAP for sleep apnea CPAP for sleep apnea Hypertension 01/13/2016 History of coronary artery stent placement 01/12 Depression 01/13/2016 Chest pain 01/13/2016 Arteriosclerosis of coronary artery 01/13/2016 Encounters Date Type Department Care Team Description 07/12/2024 External Device Data STL ABSTRACTION Provider, Abstract 06/16/2024 11:00 AM CDT Office Visit [facility] Oncology and Hematology [place] [address] [facility] [address] [address] Humberto Bray MD 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) 06/15/2024 External Device Data STL ABSTRACTION Provider, Abstract 06/07/2024 Orders Only [facility] Surgical Specialists [facility] [address] [facility] [place] [address] Gulshan Saldana MD 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) 06/06/2024 11:30 AM CDT Office Visit [facility] Surgical Specialists [facility] [address] [facility] [place] [address] Gulshan Saldana MD 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) 05/26/2024 Telephone [facility] Specialists [facility] [address] [facility] [address] [place] [address] Trever Mckee with Images Received 05/18/2024 External Device Data STL ABSTRACTION Provider, Abstract 04/21/2024 External Device Data STL ABSTRACTION Provider, Abstract from Last 3 Months Family History Medical [...] on file 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 Gender Identity Not on file Sexual Orientation Not on file Last Filed Vital Signs Vital Sign Reading Time Taken Comments Blood Pressure 130/83 06/16/2024 10:52 AM CDT Pulse 91 06/16/2024 10:52 AM CDT Temperature 35.6 C (96.1 F) 06/16/2024 10:52 AM CDT Respiratory Rate 15 06/16/2024 10:52 AM CDT Oxygen Saturation 96% 06/16/2024 10:52 AM CDT Inhaled Oxygen Concentration - - Weight 71.7 kg (158 lb) 06/16/2024 10:52 AM CDT Height 175.3 cm (5' 9 ) 06/06/2024 11:24 AM CDT Body Mass Index 23.33 06/06/2024 11:24 AM CDT Plan of Treatment Health Maintenance Due Date Last Done Comments DTAP/TDAP/TD VACCINES (1 - Tdap) 06/27/1962 PNEUMOCOCCAL VACCINE 50+ YEARS (1 of 2 - PCV) 06/27/18 61 11/28/2017 ZOSTER VACCINE (1 of 2) 06/27/1993 RSV VACCINE (60+ or ) (1 - 1-dose 75+ series) 06/27/2018 INFLUENZA VACCINE (#1) 2023 01/11/2021 Insurance MEDICARE PART A AND B [employer] [place] SU[employer] MEDICARE PART A AND B [place] [facility] [place] [facility] Care Teams Iron Launder Operator Relationship Specialty Start Date End Date Buschling, Robbin, DO [address] [place] [phone] PCP - General Family Practice 04/29/23
== END 2024-07-18 13:07 | disposition home or self-care (01) ==
LOC: CHSLAB 13:07
PROVIDERS: PCP Family Medicine; Visit Provider Internal Medicine Nephrology
DX: N18.32 Chronic kidney disease, stage 3b (principal)
CPT/HCPCS: 36415; 80048

== ENCOUNTER 2024-09-06 09:37 | Outpatient (CLI) | payer MEDICARE, OTHER, SELFPAY ==
--- NOTE | ~2024-09-06 | CT_ITS ---
CT of the Abdomen and Pelvis: Indication: Low-grade mucinous neoplasm of the appendix Technique: 2.5 mm axial scans were obtained through the abdomen and pelvis following intravenous adm inistration of 100 cc of Omnipaque 350. Dose reduction technique was used on this scan by utilizing a utomated exposure control and iterative reconstruction technique. The dose-length product (DLP) was 5 64.41 mGy-cm. COMPARISON: 03/21/2024 Findings: Scans through the lung bases demonstrate bibasilar chronic interstitial disease, essential ly unchanged. Large hiatal hernia present. The liver, spleen, pancreas, gallbladder, adrenals and kidneys are within normal limits. There are at herosclerotic calcifications of the aorta. No lymphadenopathy. No bowel obstruction or bowel wall thickening. There is no evidence to suggest acute appendicitis. Images through the pelvis were performed. Urinary bladder unremarkable. Prostate gland enlarged. No a scites. Stable chronic compression of T12 and L1. Impression: No evidence for active malignancy or metastatic disease. Large hiatal hernia. Stable chronic pulmonary interstitial disease. Reviewed, dictated and finalized at location . Impression: No evidence for active malignancy or metastatic disease. Large hiatal hernia. Stable chronic pulmonary interstitial disease.
--- OUTSIDE RECORDS SUMMARY | 2024-09-06 10:21 | XMS_ITS | Clinical Summary ---
Author Organization [facility] Address [address] [place] [address] Phone Care Team Providers Care Home Staging Specialist Name Role Phone Luna Bhagat MARINA Primary Care Provider [phone] Allergies No known active allergies Medications albuterol [...] 1:36 PM CDT Height 175.3 cm (5' 9) 10/02/2021 1:36 PM CDT Body Mass Index 25.7 10/02/2021 1:36 PM CDT Plan of Treatment Health Maintenance Due Date Last Done Comments Pneumococcal PPSV23/PCV13 65 + Years / Low and Medium Risk (1 of 4 - PCV) 06/27/1993 Influenza Vaccine (Season Ended) 2024 01/12/20 21 Insurance MEDICARE [facility] MEDICARE SUPPLEMENT [place] [address] Care Teams Home Staging Specialist Relationship Specialty Start Date End Date Luna Bhagat FNP PCP - General Family Medicine 11/03/19
--- OUTSIDE RECORDS SUMMARY | 2024-09-06 10:21 | XMS_ITS | Clinical Summary ---
Author Organization [facility] Tori Kangnahid Address [address] [place] [address] Care Team Providers Care Chick Grader Name Role Phone Robbin Garcia DO Primary Care Provider [phone] Allergies No known active allergies Medications budesonide-form [...] MG ORALLY BEDTIME 05/12/19 25 Active Insulin Randall, Disposable, (BD Ultra-Fine Short Pen Needle) 31 [...] Encounters Date Type Department Care Team Description 09/01/2024 Chart Note [facility] Surgical [facility]ists [address] [phone] Michelle Adler RN 07/12/2024 External Device Data STL ABSTRACTION Provider, Abstract 06/16/2024 11:00 AM CDT Office Visit [facility] Oncology and Hematology - [place] [address] [place] [phone] Humberto Bray MD 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) 06/15/2024 External Device Data STL ABSTRACTION Provider, Abstract 06/07/2024 Orders Only [facility] Surgical Specialists [facility] [id number] [place] [address] [place] [phone] Gulshan Saldana MD 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) 06/06/2024 11:30 AM CDT Office Visit [facility] Surgical Specialists [facility] [address] [facility] [address] [place] [address] Gulshan Saldana MD 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) from Last 3 Months Family History Medical [...] on file 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 Gender Identity Not on file Sexual Orientation [...] 10:52 AM CDT Height 175.3 cm (5' 9) 06/06/2024 11:24 AM CDT Body Mass Index 23.33 06/06/2024 11:24 AM CDT Plan of Treatment Upcoming Encounters Date Type Department Care Team (Late st Contact Info) Description 09/09/2024 10:30 AM CDT Office Visit [facility] Surgical [facility] [address] [facility] [address] [place] [address] [place] [address] [facility] [address] [place] [address] Health Maintenance Due Date Last Done Comments DTAP/TDAP/TD VACCINES (1 - Tdap) 06/27/1962 PNEUMOCOCCAL VACCINE 50+ YEARS (1 of 2 - PCV) 06/27/18 63 11/28/2017 ZOSTER VACCINE (1 of 2) 06/27/1993 RSV VACCINE (60+ or ) (1 - 1-dose 75+ series) 06/27/2018 INFLUENZA VACCINE (#1) 2023 01/11/2021 Insurance MEDICARE PART A AND B [facility] [facility] MEDICARE PART A AND B [employer] [facility] [place] [address] Care Teams Chick Grader Relationship Specialty Start Date End Date Robbin Garcia DO [address] [place] [address] PCP - General Family Practice 04/29/23
[2024-09-06 10:28] LABS: Estimated Glomerular Filt Rate 37
== END 2024-09-06 09:38 | disposition home or self-care (01) ==
PROVIDERS: PCP Family Medicine
DX: D37.3 Neoplasm of uncertain behavior of appendix (principal); K44.9 Diaphragmatic hernia without obstruction or gangrene; J84.9 Interstitial pulmonary disease, unspecified
CPT/HCPCS: 74177; Q9967

== ENCOUNTER 2024-12-20 11:00 | Outpatient (CLI) | payer MEDICARE, OTHER, SELFPAY ==
[2024-12-20 11:13] LABS: Hematocrit 47.5 % (37.0-46.0); Hemoglobin 15.2 g/dL (12.4-15.3); Mean Corpuscular HGB Conc 32.0 g/dL (32-36); Mean Corpuscular Hemoglobin 28.6 pg (27.0-31.0); Mean Corpuscular Volume 89.3 fL (78.0-102.0); Platelet Count Result 170 K/mm3 (150-420); Red Blood Count 5.32 M/mm3 (4.70-6.10); White Blood Count 9.8 K/mm3 (4.8-10.8)
[2024-12-20 11:36] LABS: Total Protein Urine Random 12 mg/dL; Ur Ttl Prot Creatinine Ratio 0.44 mg/mg (0-0.20)
--- OUTSIDE RECORDS SUMMARY | 2024-12-20 11:49 | XMS_ITS | Clinical Summary ---
Author Organization [facility] Tori Kangnahid Address [address] [place] [address] Care Team Providers Care Case Checker Name Role Phone Robbin Garcia DO Primary Care Provider [phone] Allergies No known active allergies Medications budesonide-form [...] MG ORALLY BEDTIME 05/12/19 25 Active Insulin Mil[place], Disposable, (BD Ultra-Fine Short Pen Needle) 31 [...] Encounters Date Type Department Care Team Description 12/13/2024 External Device Data STL ABSTRACTION Provider, Abstract 12/13/2024 External Device Data STL ABSTRACTION Provider, Abstract 12/09/[address] 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 Gender Identity Not on file Sexual Orientation Not on file Last Filed Vital Signs Vital Sign Reading Time Taken Comments Blood Pressure 100/62 09/09/2024 10:54 AM CDT Pulse 88 09/09/2024 10:54 AM CDT Temperature 36.6 C (97.9 F) 09/09/2024 10:54 AM CDT Respiratory Rate 15 06/16/2024 10:52 AM CDT Oxygen Saturation 85% 09/09/2024 10:54 AM CDT Inhaled Oxygen Concentration - - Weight 73.5 kg (162 lb) 09/09/2024 10:54 AM CDT Height 175.3 cm (5' 9) 09/09/2024 10:54 AM CDT Body Mass Index 23.92 09/09/2024 10:54 AM CDT Plan of Treatment Upcoming Encounters Date Type Department Care Team (Late st Contact Info) Description 04/13/2025 1:00 PM SINTERING PRESS OPERATOR Office Visit [facility] Surgical Specialists [facility] [address] [facility] [address] [place] [address] [place] [address] [facility] [address] [place] [address] Health Maintenance Due Date Last Done Comments DTAP/TDAP/TD VACCINES (1 - Tdap) 06/27/1962 PNEUMOCOCCAL VACCINE 50+ YEARS (1 of 2 - PCV) 06/27/18 63 11/28/2017 ZOSTER VACCINE (1 of 2) 06/27/1993 RSV VACCINE (60+ or ) (1 - 1-dose 75+ series) 06/27/2018 INFLUENZA VACCINE (#1) 2024 01/11/2021 Insurance MEDICARE PART A AND B [place] [facility] MEDICARE PART A AND B [place] [facility] Care Teams Case Checker Relationship Specialty Start Date End Date Robbin Garcia DO [address] [place] [address] PCP - General Family Practice 04/29/23
--- OUTSIDE RECORDS SUMMARY | 2024-12-20 11:49 | XMS_ITS | Clinical Summary ---
Author Organization [facility] Address [facility] [place] [address] Care Team Providers Care Medical Csr Name Role Phone Luna Bhagat SERVICE LINE LAYER Primary Care Provider [phone] Allergies No known active allergies Medications meclizine [...] disease) COPD (chronic obstructive pu lmonary disease) ([facility]) Asthma ([facility] [place]) Arthritis Family History Medical History Relation Comments [...] 1:00 PM CDT Height 175.3 cm (5' 9) 12/11/2022 1:00 PM CDT Body Mass Index [...] COVID-19 Vaccine ( - 2023-2 5 season) 2024 Meningococcal B Vaccine Aged Out No l [...] Comments LIPID PANEL Routine 03/25/2014 12:00 AM CUSTOMS COMPLIANCE ANALYST from Last 3 Months or Most Recently Relevant to Health Maintenance Results * LIPID PANEL (03/25/2014 12:00 AM CUSTOMS COMPLIANCE ANALYST) TRIGLYCERIDES 158 0 - 150 mg/dl MEDINFORMATIX TO EPIC CONVERSION CHOLESTEROL 153 0 - 200 mg/dl MEDINFORMATIX TO EPIC CONVERSION HDL 52 40 - 59 mg/dl MEDINFORMATIX TO EPIC CONVERSION LDL CONVERSION 69 0 - 100 mg/dl MEDINFORMATIX TO EPIC CONVERSION CHOL/HDL RATIO 2.9 <4.0 (Calc) MEDINFORMATIX TO EPIC CONVERSION 03/25/2014 03/25/2014 Narrative MEDINFORMATIX TO EPIC CONVERSION - 03/27/2014 12:56 PM CUSTOMS COMPLIANCE ANALYST Reviewed by DOTTY Mar 27 2014 12:56:51:000PM us Generic Conversion Md [facility] Final R esult MEDINFORMATIX TO EPIC CONVERSION from Last 3 Months or Most Recently Relevant to Health Maintenance Insurance [facility] MEDICARE MEDICARE [facility] Care Teams Medical Csr Relationship Specialty Start Date End Date Luna Bhagat, MARINA [address] [place] [address] PCP - General NURSE PRACTITIONER 05/03/20
--- OUTSIDE RECORDS SUMMARY | 2024-12-20 11:49 | XMS_ITS | Clinical Summary ---
Author Organization [facility] Cel[facility] fine Address [address] [place] [address] Phone Care Team Providers Care Cross Cut Sawyer Name Role Phone Luna Bhagat MARINA Primary Care Provider [phone] Allergies No known active allergies Medications albuterol [...] / Low and Medium Risk (1 of 2 - PCV) 06/27/1993 Influenza Vaccine (#1) 2024 01/11/2021 Insurance MEDICARE [facility] [place]ICARE [place] [address] Care Teams Cross Cut Sawyer Relationship Specialty Start Date End Date Luna Bhagat FNP PCP - General Family Medicine 11/03/19
--- OUTSIDE RECORDS SUMMARY | 2024-12-20 11:49 | XMS_ITS | Encounter Summary ---
Author Organization [facility] Address [address] [place] [address] Care Team Providers Care Business Analyst Manager Name Role Phone Bird Castillo MD Primary Care Provider Remi Hess MD Unavailable Maged Robertson MD Primary Care Provider Luna Bhagat [facility] Primary Care Provider [phone] Encounter Details Date Type Department Care Team (Late st Contact Info) Description 01/11/2015 Abstract [facility] [place] [address] [place] [address] Remi Galan MD [address] [place] [phone] Social History Tobacco Use Types Packs/Day Years [...] on filedocumented in this encounter Care Teams Business Analyst Manager Relationship Specialty Start Date End Date Bird Castillo MD PCP - General SURGERY 12/12/15 11/16/18 Maged Robertson MD [address] [place] [address] PCP - General FAMILY PRACTICE 11/17/18 05/02/20 Luna Bhagat FNP [address] [place] [address] PCP - General NURSE PRACTITIONER 05/03/20 Remi Galan MD [address] [place] [address] CARDIOVASCULAR DISEASE 12/12/15 11/11/23 documented as of this encounter
--- OUTSIDE RECORDS SUMMARY | 2024-12-20 11:49 | XMS_ITS | Encounter Summary ---
Author Organization [facility] Address [address] [place] [address] Care Team Providers Care Duct Installer Name Role Phone Bird Castillo MD Primary Care Provider Remi Hess MD Unavailable [phone] Maged Robertson MD Primary Care Provider [phone] Luna Bhagat DRAFTER Primary Care Provider [phone] Encounter Details Date Type Department Care Team (Late st Contact Info) Description 06/13/2017 Abstract [facility] [address] [place], [place] [id number] , Generic ConversionMD Social History Tobacco Use [...] on filedocumented in this encounter Care Teams Duct Installer Relationship Specialty Start Date End Date Bird Castillo MD PCP - General SURGERY 12/12/15 11/16/18 Maged Robertson MD [address] [place] [address] PCP - General FAMILY PRACTICE 11/17/18 05/02/20 Luna Bhagat FNP [address] [place] [address] PCP - General NURSE PRACTITIONER 05/03/20 Remi Galan MD [address] [place] [address] [place] Learning Disabilities Specialist CARDIOVASCULAR DISEASE 12/12/15 11/11/23 documented as of this encounter
--- OUTSIDE RECORDS SUMMARY | 2024-12-20 11:49 | XMS_ITS | Encounter Summary ---
Author Organization [facility] Address [address] [place] [address] Care Team Providers Care Percolator Operator Name Role Phone Bird Castillo MD Primary Care Provider Remi Hess MD Unavailable [phone] Maged Robertson MD Primary Care Provider [phone] [facility] Primary Care Provider [phone] Encounter Details Date Type Department Care Team (Late st Contact Info) Description 03/26/2016 Abstract [facility] [address] [place] [address] Remi Galan MD [address] [place] [phone] Social History Tobacco Use Types Packs/Day Years [...] on filedocumented in this encounter Care Teams Percolator Operator Relationship Specialty Start Date End Date Bird Castillo MD PCP - General SURGERY 12/12/15 11/16/18 Maged Robertson MD [address] [place] [address] PCP - General FAMILY PRACTICE 11/17/18 05/02/20 Luna Bhagat, FORESTER SILVIC[employer]URE [address] [place] [address] PCP - General NURSE PRACTITIONER 05/03/20 Remi Galan MD [address] [place] [address] [place] Multi Spindle Operator CARDIOVASCULAR DISEASE 12/12/15 11/11/23 documented as of this encounter
[2024-12-22 08:40] LABS: Parathyroid Intact 49.9
== END 2024-12-20 11:01 | disposition home or self-care (01) ==
LOC: CHSLAB 11:02
PROVIDERS: PCP Family Medicine; Visit Provider Internal Medicine Nephrology
DX: N18.32 Chronic kidney disease, stage 3b (principal)
CPT/HCPCS: 36415; 82570; 83970; 84156; 85027